=== PATIENT | female | born 1965 | race Caucasian/White ===

== ENCOUNTER 2017-04-05 22:29 | Observation (INO) | payer OTHER ==
--- NOTE | 2017-04-05 22:45 | ED ---
SOB HPI - General Chief Complaint: Shortness of Breath Stated Complaint: HERBER Time Seen by Provider: 04/05/17 22:38 Source: patient, EMS, RN notes reviewed Mode of arrival: EMS Limitations: no limitations - History of Present Illness Initial Comments: This a 51-year-old female presents emergency department via EMS with chief complaint of shortness of breath. Patient states the last few days she's had increased shortness of breath that she feels very achy. She is concerned she may have some sort of lung infection. She states she's had a mild cough which is nonproductive. Patient does have COPD and continues to smoke. Patient states that she has some rib pain when she coughs denies any chest pain. Patient denies any headache, blurred vision, nausea vomiting. Patient states she has had some dizziness. Patient states that she's been using her albuterol inhaler which has not changed much or shortness of breath at this time. Patient denies any prior cardiac problems. - Related Data Home Medications Medication Instructions Recorded Confirmed Omeprazole [PriLOSEC] 20 mg PO [id number] 12/02/14 12/02/14 Previous Rx's Medication Instructions Recorded Albuterol Sulfate [Proair Hfa] 2 puff INHALATION Q4HR PRN #1 12/02/14 inhaler Levofloxacin [Levaquin] 500 mg PO DAILY #10 tab 12/02/14 Oseltamivir [Tamiflu] 75 mg PO Q12HR #10 cap 12/02/14 methylPREDNISolone [Medrol] 1 pack PO DIRECTED #1 tab.ds.pk 12/02/14 Allergies Allergy/AdvReac Type Severity Reaction Status Date / Time No Known Allergies Allergy Verified 12/02/14 15:44 Review of Systems ROS Statement: Those systems with pertinent positive or pertinent negative responses have been documented in the HPI. ROS Other: All systems not noted in ROS Statement are negative. Past Medical History Past Medical History: COPD History of Any Multi-Drug Resistant Organisms: None Reported Past Surgical History: Section, Cholecystectomy Past Psychological History: No Psychological Hx Reported Smoking Status: Current every day smoker Past Alcohol Use History: None Reported Past Drug Use History: None Reported General Exam Limitations: no limitations General appearance: alert, in no apparent distress Head exam: Present: atraumatic, normocephalic, normal inspection Eye exam: Present: normal appearance, PERRL, EOMI. Absent: scleral icterus, conjunctival injection, periorbital swelling ENT exam: Present: mucous membranes moist, TM's normal bilaterally, normal external ear exam. Absent: normal exam, normal oropharynx (no dentition) Neck exam: Present: normal inspection, full ROM. Absent: tenderness, meningismus, lymphadenopathy Respiratory exam: Present: normal lung sounds bilaterally. Absent: respiratory distress, wheezes, rales, rhonchi, stridor Cardiovascular Exam: Present: regular rate, normal rhythm, normal heart sounds. Absent: systolic murmur, diastolic murmur, rubs, gallop, clicks GI/Abdominal exam: Present: soft, normal bowel sounds. Absent: distended, tenderness, guarding, rebound, rigid Neurological exam: Present: alert, oriented X3, CN II-XII intact Course Vital Signs 04/05/17 04/05/17 04/05/17 22:32 22:34 23:34 Temperature 98.7 F Pulse Rate 85 80 Respiratory 18 18 18 Rate Blood Pressure 117/77 O2 Sat by Pulse 100 100 Oximetry Medical Decision Making - Lab Data Result diagrams: 04/05/17 22:42 04/05/17 22:42 Lab Results 04/05/17 04/05/17 04/05/17 Range/Units 22:42 22:42 22:42 WBC 4.9 (3.8-10.6) k/uL RBC 4.30 (3.80-5.40) m/uL Hgb 13.5 (11.4-16.0) gm/dL Hct 40.1 (34.0-46.0) % MCV 93.2 (80.0-100.0) fL MCH 31.3 (25.0-35.0) pg MCHC 33.6 (31.0-37.0) g/dL RDW 12.2 (11.5-15.5) % Plt Count 202 (150-450) k/uL Neutrophils % 59 % Lymphocytes % 32 % Monocytes % 4 % Eosinophils % 3 % Basophils % 1 % Neutrophils # 2.9 (1.3-7.7) k/uL Lymphocytes # 1.6 (1.0-4.8) k/uL Monocytes # 0.2 (0-1.0) k/uL Eosinophils # 0.1 (0-0.7) k/uL Basophils # 0.1 (0-0.2) k/uL PT (9.0-12.0) sec INR (<1.1) APTT (22.0-30.0) sec D-Dimer (<0.60) mg/L FEU Sodium 144 (137-145) mmol/L Potassium 4.1 (3.5-5.1) mmol/L Chloride 106 (98-107) mmol/L Carbon Dioxide 28 (22-30) mmol/L Anion Gap 10 mmol/L BUN 5 L (7-17) mg/dL Creatinine 0.70 (0.52-1.04) mg/dL Est GFR (MDRD) Af Amer >60 (>60 ml/min/1.73 sqM) Est GFR (MDRD) Non-Af >60 (>60 ml/min/1.73 sqM) Glucose 87 (74-99) mg/dL Calcium 9.6 (8.4-10.2) mg/dL Magnesium 1.7 (1.6-2.3) mg/dL Total Bilirubin 0.4 (0.2-1.3) mg/dL AST 18 (14-36) U/L ALT 15 (9-52) U/L Alkaline Phosphatase 80 (38-126) U/L Total Creatine Kinase 35 (30-135) U/L CK-MB (CK-2) 0.3 (0.0-2.4) ng/mL CK-MB (CK-2) Rel Index 0.9 Troponin I <0.012 (0.000-0.034) ng/mL NT-Pro-B Natriuret Pep pg/mL Total Protein 6.9 (6.3-8.2) g/dL Albumin 4.2 (3.5-5.0) g/dL 04/05/17 04/05/17 Range/Units 22:42 22:42 WBC (3.8-10.6) k/uL RBC (3.80-5.40) m/uL Hgb (11.4-16.0) gm/dL Hct (34.0-46.0) % MCV (80.0-100.0) fL MCH (25.0-35.0) pg MCHC (31.0-37.0) g/dL RDW (11.5-15.5) % Plt Count (150-450) k/uL Neutrophils % % Lymphocytes % % Monocytes % % Eosinophils % % Basophils % % Neutrophils # (1.3-7.7) k/uL Lymphocytes # (1.0-4.8) k/uL Monocytes # (0-1.0) k/uL Eosinophils # (0-0.7) k/uL Basophils # (0-0.2) k/uL PT 10.5 (9.0-12.0) sec INR 1.0 (<1.1) APTT 23.0 (22.0-30.0) sec D-Dimer 0.84 H (<0.60) mg/L FEU Sodium (137-145) mmol/L Potassium (3.5-5.1) mmol/L Chloride (98-107) mmol/L Carbon Dioxide (22-30) mmol/L Anion Gap mmol/L BUN (7-17) mg/dL Creatinine (0.52-1.04) mg/dL Est GFR (MDRD) Af Amer (>60 ml/min/1.73 sqM) Est GFR (MDRD) Non-Af (>60 ml/min/1.73 sqM) Glucose (74-99) mg/dL Calcium (8.4-10.2) mg/dL Magnesium (1.6-2.3) mg/dL Total Bilirubin (0.2-1.3) mg/dL AST (14-36) U/L ALT (9-52) U/L Alkaline Phosphatase (38-126) U/L Total Creatine Kinase (30-135) U/L CK-MB (CK-2) (0.0-2.4) ng/mL CK-MB (CK-2) Rel Index Troponin I (0.000-0.034) ng/mL NT-Pro-B Natriuret Pep 72 pg/mL Total Protein (6.3-8.2) g/dL Albumin (3.5-5.0) g/dL 04/05/17 22:45 EKG performed at 22:36 sinus rhythm with sinus arrhythmia incomplete right bundle chester block with a rate of 74. SC interval 124 QRS duration 106 QT/QTC 392/435 Disposition Clinical Impression: Chest pain, Pericardial effusion, Dyspnea Disposition: ADMITTED IP TO THIS HOSP Condition: Fair Referrals: None,Stated [Primary Care Provider] - 1-2 days
[2017-04-05 22:55] LABS: Basophils # (A) 0.1 k/uL (0-0.2); Basophils % (A) 1 %; CH 31.4; CHCM 33.8; Eosinophils # (A) 0.1 k/uL (0-0.7); Eosinophils % (A) 3 %; HCT 40.1 % (34.0-46.0); HDW 2.65; HGB 13.5 gm/dL (11.4-16.0); Luc # (Auto) 0.07; Luc % (Auto) 1; Lymphocytes # (A) 1.6 k/uL (1.0-4.8); Lymphocytes % (A) 32 %; MCH 31.3 pg (25.0-35.0); MCHC 33.6 g/dL (31.0-37.0); MCV 93.2 fL (80.0-100.0); Mean Platelet Volume 7.4; Monocytes # (A) 0.2 k/uL (0-1.0); Monocytes % (A) 4 %; Neutrophils # (A) 2.9 k/uL (1.3-7.7); Neutrophils % (A) 59 %; RDW 12.2 % (11.5-15.5); WBC 4.9 k/uL (3.8-10.6)
[2017-04-05 23:06] LABS: ALT 15 U/L (9-52); AST 18 U/L (14-36); Alkaline Phosphatase 80 U/L (38-126); Anion Gap 10 mmol/L; Blood Urea Nitrogen 5 mg/dL (7-17); Calcium 9.6 mg/dL (8.4-10.2); Carbon Dioxide 28 mmol/L (22-30); Chloride 106 mmol/L (98-107); Glucose 87 mg/dL (74-99); Magnesium 1.7 mg/dL (1.6-2.3); Non-African American GFR(MDRD) >60 (>60 ml/min/1.73 sqM); Potassium 4.1 mmol/L (3.5-5.1); Sodium 144 mmol/L (137-145); Total Bilirubin 0.4 mg/dL (0.2-1.3); Total Protein 6.9 g/dL (6.3-8.2)
[2017-04-05 23:08] LABS: Prothrombin Time 10.5 sec (9.0-12.0)
--- NOTE | 2017-04-05 23:16 | XR ---
EXAM: XR Chest, 2 Views CLINICAL HISTORY: Reason: difficulty breathing TECHNIQUE: Frontal and lateral views of the chest. COMPARISON: 12/02/14 FINDINGS: Cardiac and mediastinal silhouette unremarkable. Again noted are chronic lung findings with pulmonary hyperexpansion/findings compatible with COPD. Areas of scarring and atelectasis suspected. There is blunting of costophrenic angles. May represent scarring though difficult to exclude small pleural effusions. Improved aeration compared to the previous. No definite infiltrate seen on current. IMPRESSION: Chronic lung findings. Blunted costophrenic angles may represent scarring with small pleural effusions not excluded. Improved aeration compared to prior.
[2017-04-05] MEDS ORDERED: RX INFO: IV CONTRAST WAS GIVEN 1 EACH MISC MISCELLANE PRN (23:21)
[2017-04-05 23:27] LABS: Creatine Kinase 35 U/L (30-135)
[2017-04-05 23:40] LABS: Creatine Kinase MB 0.3 ng/mL (0.0-2.4); Troponin I <0.012 ng/mL (0.000-0.034)
--- NOTE | 2017-04-06 00:15 | CT ---
EXAM: CT Angiography Chest With Intravenous Contrast CLINICAL HISTORY: Reason: Pain TECHNIQUE: Axial computed tomographic angiography images of the chest with intravenous contrast using pulmonary embolism protocol. CTDI is 36.4 mGy and DLP is 135.4 mGy-cm. This CT exam was performed using one or more of the following dose reduction techniques: automated exposure control, adjustment of the mA and/or kV according to patient size, and/or use of iterative reconstruction technique. MIP reconstructed images were created and reviewed. Coronal and sagittal reformatted images were created and reviewed. COMPARISON: Chest x-ray same date. No prior chest CTs. FINDINGS: Contrast bolus slightly suboptimal within the pulmonary arteries. Mild artifact limits evaluation of small peripheral branches. No evidence for PE is seen. No aortic dissection. Small pericardial effusion. No cardiomegaly. No pleural effusions. Pulmonary hyperexpansion/findings compatible with COPD with areas of scarring. No superimposed infiltrate. Calcified lung nodules suggesting old granulomatous disease. Cholecystectomy. Degenerative changes and mild spinal curvature. IMPRESSION: Contrast bolus slightly suboptimal within the pulmonary arteries. Mild artifact limits evaluation of small peripheral branches. No evidence for PE is seen. Small pericardial effusion and other findings, as above.
[2017-04-06] MEDS ORDERED: NITROGLYCERIN SL TABS 0.4 MG TAB SUBLINGUAL PRN (00:38)
[2017-04-06] MEDS ORDERED: HEPARIN SODIUM,PORCINE 5,000 UNIT/ML 1 ML VIAL IV ONE (00:38)
[2017-04-06] MEDS ORDERED: ASPIRIN 81 MG CHEW PO STA (00:38)
[2017-04-06] MEDS: HEPARIN SODIUM,PORCINE/D5W PMX 25,000 UNIT in DEXTROSE/WATER 1 500ML.BAG IV SCH (01:03)
[2017-04-06 07:10] LABS: Creatine Kinase 38 U/L (30-135)
[2017-04-06 07:24] LABS: Creatine Kinase MB 0.4 ng/mL (0.0-2.4); Troponin I <0.012 ng/mL (0.000-0.034)
[2017-04-06 12:07] LABS: Creatine Kinase 44 U/L (30-135)
[2017-04-06 12:21] LABS: Creatine Kinase MB 0.6 ng/mL (0.0-2.4); Troponin I <0.012 ng/mL (0.000-0.034)
[2017-04-06] MEDS ORDERED: TEMAZEPAM 15 MG CAP PO PRN (14:38)
[2017-04-06] MEDS ORDERED: ALPRAZolam 0.25 MG TAB PO PRN (14:38)
[2017-04-06] MEDS: NICOTINE 14MG/24HR PATCH TRANSDERM SCH (15:52)
[2017-04-06] MEDS: PANTOPRAZOLE 40 MG TABLET PO SCH (15:52)
[2017-04-06 15:56] LABS: C Reactive Protein <5.0 mg/L (<10.0)
[2017-04-06 17:39] LABS: Appearance,Urine Clear (Clear); Bilirubin,Urine Negative (Negative); Glucose,Urine (UA) Negative (Negative); Ketones,Urine Negative (Negative); Leukocyte Esterase,Urine Negative (Negative); Nitrite,Urine Negative (Negative); Protein,Urine Negative (Negative); Specific Gravity,Urine 1.002 (1.001-1.035); UA Billing (MACRO vs. MICRO) CHEM; Urobilinogen,Urine <2.0 mg/dL (<2.0)
[2017-04-06] MEDS: SYMBICORT 160-4.5 MCG INHALER INHALATION SCH (19:25)
--- NOTE | 2017-04-06 20:52 | HP ---
DATE OF ADMISSION: 04/06/2017 CHIEF COMPLAINT: Complains of chest pain. HISTORY OF PRESENT ILLNESS: This 51-year-old woman with a past medical history of multiple medical problems including COPD , history of cholecystitis, history of nicotine dependence, being followed by no primary care physician, was recently moved back to the area. The patient is complaining of chest pain, which is on the left side and as well as travelling up towards part of her chest with sometimes heaviness, sometimes sharp in character. Patient also complains of mild cough also. The patient has history of heavy smoking. Patient came to [facility] and admitted for further evaluation and treatment. Initial EKG showed incomplete right bundle branch block and as well as PACs. Otherwise, the troponins are negative. Patient admitted for further evaluation and treatment. There is no history of any fever, rigors, chills. No history of headache, loss of consciousness or seizures. The patient also had CT of the chest which showed small pericardial effusion and the findings including granulomatous lesion also noted. The patient apparently also had weight loss from 150 to 96 pounds. The patient choked on deer meet last year subsequently patient had some difficulties in swallowing. The patient did have endoscopy previously. There is no history of fever, rigors, chills. No history of headache, loss of consciousness or seizures. PAST MEDICAL HISTORY: History of COPD , history of cholecystectomy, history of nicotine dependence. Medications prior to admission include albuterol 1 to 2 puffs every 4 p.r.n. ALLERGIES: None. FAMILY HISTORY: No history of heart disease or strokes in the family. SOCIAL HISTORY: History of smoking. No history of alcohol intake. REVIEW OF SYSTEMS: ENT: No diminishing hearing. No diminished vision. CARDIOVASCULAR: As mentioned earlier. RESPIRATORY: As mentioned earlier. GI: No nausea. : No dysuria or retention. CENTRAL NERVOUS SYSTEM: No numbness or weakness. ALLERGY/IMMUNOLOGY: No asthma or hayfever. MUSCULOSKELETAL: As mentioned earlier. HEMATOLOGY/ONCOLOGY: No history of anemia. ENDOCRINE: No history of diabetes mellitus or hypothyroidism. CONSTITUTIONAL: As mentioned earlier. DERMATOLOGY: Negative. RHEUMATOLOGY: Negative. PSYCHIATRY: As mentioned earlier. PHYSICAL EXAMINATION: The patient is alert and oriented times three. Pulse 56, blood pressure 92/56, respiratory rate 18, temperature 98.2, pulse ox 98% on room air. HEENT: Conjunctivae normal. Oral mucosa moist. NECK: No jugular venous distention. No carotid bruit. No lymph node enlargement. CARDIOVASCULAR: S1, S2 muffled. No S3, no S4. RESPIRATORY: Breath sounds diminished at the bases. A few rhonchi, no crackles. ABDOMEN: Soft, nontender. No mass palpable. No hepatosplenomegaly. LEGS: No edema. No swelling. Nervous system: Higher functions as mentioned earlier. Moves all four limbs. No focal motor or sensory deficits. LYMPHATICS: No lymph nodes palpable in the neck, axillae or groin. SKIN: No ulcers, rashes or bleeding. Joints: No active deforming arthropathy. Lab investigation at this time shows CBC within normal limits. D-dimer is 0.84 and BUN is 5. Other labs are normal. ASSESSMENT: 1. Chest pain, possible unstable angina. 2. Possible pleural pericarditis. 3. Mild pericardial effusion on the CAT scan. 4. Elevated d-dimer 0.84 with no evidence of pulmonary embolism. 5. Severe protein calorie malnutrition with body mass index 17.8. 6. Sinus bradycardia. 7. Relative hypotension. 8. History of chronic obstructive pulmonary disease. 9. History of cholecystectomy. 11. History of nicotine dependence. 12. FULL CODE. Recommendations and discussion: This 51-year-old woman who presented with the multiple complex medical issues, we will monitor the patient closely. Continue with the current medications. Continue symptomatic treatment. I recommend to stop the heparin because of pleural effusion on the CT scan. Treat the patient empirically. Cardiology consultation. Prognosis guarded because of multiple complex medical issues. Further recommendations to follow. I would also recommend the patient follow up with primary care physician closely also. Patient understands and agrees. I would also recommend a 2-D echo with Doppler and ESR and CRP also. Full laboratory data workup including TSH also will be ordered. Further recommendations to follow. MTDD
[2017-04-07 06:40] LABS: Basophils % (A) 1 %; CH 31.3; CHCM 33.8; Eosinophils # (A) 0.2 k/uL (0-0.7); Eosinophils % (A) 4 %; HCT 32.9 % (34.0-46.0); HDW 2.58; HGB 10.9 gm/dL (11.4-16.0); Luc # (Auto) 0.08; Luc % (Auto) 2; Lymphocytes # (A) 2.5 k/uL (1.0-4.8); Lymphocytes % (A) 51 %; MCH 30.9 pg (25.0-35.0); MCHC 33.3 g/dL (31.0-37.0); MCV 92.8 fL (80.0-100.0); Mean Platelet Volume 7.4; Monocytes # (A) 0.2 k/uL (0-1.0); Monocytes % (A) 4 %; Neutrophils # (A) 1.9 k/uL (1.3-7.7); Neutrophils % (A) 39 %; RBC 3.54 m/uL (3.80-5.40); RDW 12.2 % (11.5-15.5); WBC 4.8 k/uL (3.8-10.6); WBC (Perox) 4.83
[2017-04-07 07:07] LABS: Anion Gap 7 mmol/L; Blood Urea Nitrogen 4 mg/dL (7-17); Calcium 8.9 mg/dL (8.4-10.2); Carbon Dioxide 27 mmol/L (22-30); Chloride 107 mmol/L (98-107); Cholesterol 134 mg/dL (<200); Glucose 89 mg/dL (74-99); HDL Cholesterol 57 mg/dL (40-60); Non-African American GFR(MDRD) >60 (>60 ml/min/1.73 sqM); Potassium 3.8 mmol/L (3.5-5.1); Sodium 141 mmol/L (137-145); Triglycerides 69 mg/dL (<150)
[2017-04-07] MEDS: SYMBICORT 160-4.5 MCG INHALER INHALATION SCH (07:41)
[2017-04-07 07:57] LABS: Polychromasia Present
[2017-04-07 08:00] VITALS: BP 83/55; PULSE 76; RESP 18; TEMP 98.2
[2017-04-07] MEDS ORDERED: ASPIRIN 325 MG TAB PO SCH (09:00)
--- NOTE | 2017-04-07 10:37 | ECHOF ---
Referral Reason:dariel. effusion MEASUREMENTS -------- HEIGHT: 167.6 cm WEIGHT: 49.9 kg BP: 125/70 RVIDd: 2.3 cm (< 3.3) IVSd: 0.7 cm (0.6 - 1.1) LVIDd: 3.6 cm (3.9 - 5.3) LVPWd: 0.9 cm (0.6 - 1.1) IVSs: 1.1 cm LVIDs: 2.4 cm LVPWs: 1.3 cm LA Diam: 2.4 cm (2.7 - 3.8) LAESV Index (A-L): 12.61 ml/m Ao Diam: 2.3 cm (2.0 - 3.7) AV Cusp: 1.9 cm (1.5 - 2.6) MV EXCURSION: 21.692 mm (> 18.000) MV EF SLOPE: 82 mm/s (70 - 150) EPSS: 0.3 cm MV E Epi: 1.05 m/s MV DecT: 231 ms MV A Epi: 0.59 m/s MV E/A Ratio: 1.77 FINDINGS -------- Sinus rhythm. This was a technically adequate study. The left ventricular size is normal. Left ventricular wall thickness is normal. Overall left ventricular systolic function is low-normal with, an EF between 50 - 55 %. The diastolic filling pattern is normal for the age of the patient 9.19. The right ventricle is normal in size. Normal LA size by volume 22+/-6 ml/m2. The right atrium is normal in size. The aortic valve is trileaflet and appears structurally normal. There is trace mitral regurgitation. The tricuspid valve appears structurally normal. The aortic root, ascending aorta and aortic arch are normal. Normal inferior vena cava with normal inspiratory collapse consistent with estimated right atrial pressure of 5 mmHg. The pericardium is normal. CONCLUSIONS -------- 1. Sinus rhythm. 2. The aortic valve is trileaflet and appears structurally normal. 3. There is trace mitral regurgitation. 4. The tricuspid valve appears structurally normal. 5. The aortic root, ascending aorta and aortic arch are normal. 6. The pericardium is normal. 7. This was a technically adequate study. 8. The left ventricular size is normal. 9. Left ventricular wall thickness is normal. 10. Overall left ventricular systolic function is low-normal with, an EF between 50 - 55 %. 11. The diastolic filling pattern is normal for the age of the patient 9.19 12. The right ventricle is normal in size. 13. Normal LA size by volume 22+/-6 ml/m2. 14. The right atrium is normal in size. DIGITAL DATA ANALYST: Suzan Olivarez RDCS
[2017-04-07] MEDS ORDERED: DOBUTamine DRIP for NUC MED 500 MG in DEXTROSE/WATER 1 250ML.BAG IV ONE (11:11)
--- NOTE | 2017-04-07 11:41 | CONS ---
DATE OF CONSULTATION: Mrs. Curran is a 51-year-old female who presented with recurrent chest discomfort and shoulder discomfort. She was somewhat dizzy and lightheaded and is complaining of pounding and palpitations. She underwent a CT of the chest, we do not show any definite evidence for PE. A 12 lead ECG shows sinus arrhythmia. No ST segment abnormalities. Cardiac enzymes were normal. REVIEW OF SYSTEMS: No fever, chills, rigors. No cough or expectoration. No nausea, vomiting or diarrhea. No hematuria or dysuria. No strokes or seizures. No skin lesions or musculoskeletal complaints. She does have some abdominal discomfort. Past history of smoking regularly, history of COPD. Past surgical history of cholecystectomy. ALLERGIES: None. Family history, noncontributory. SOCIAL HISTORY: She has a history of regular smoking, no alcohol intake. On examination, her blood pressure was 92/56 mmHg upon admission, pulse rate was in the 50s. Head and neck examination is normal. Heart sounds are normal. Lungs are clear to auscultation. Extremities are warm. No edema. She is quite a thin frail lady. She underwent a 2-D echo. She showed a left ventricular ejection fraction of about 50% to 55% with no significant valvular abnormalities. IMPRESSION: 1. Chest discomfort with normal cardiac enzymes. 2. History of nicotine dependence. 3. No evidence for pulmonary embolism. 4. LV systolic function is at the lower limits of normal. SUGGEST: Dobutamine stress echo to rule out any underlying ischemia. If this is normal, then she may go to the medical floor for further work-up regarding her symptoms of shortness of breath, abdominal discomfort and weight loss.
[2017-04-07] MEDS ORDERED: MULTIVITAMINS, THERA 1 EACH TAB PO SCH (12:00)
--- NOTE | 2017-04-07 12:27 | ECHOS ---
DATE OF SERVICE: 04/07/2017 AGE: 51Y SEX: F HT: 66 WT: 110 lbs. Protocol Bharath: Others: Dobutamine Stress Echo Stage: Dur. of Exercise: *Heart Rate Blood Pressure *Rest: ( ) Rest: 86/51 * *Max. Achieved: 150 Maximum BP: 123/67 85% PMHR: 143 100% PMHR: 168 *METS: INDICATIONS: Chest pain. MEDICATIONS: Patient was given dobutamine infusion according to the standard protocol. Peak heart rate of 150 was achieved. Maximum blood pressure of 123/67 mmHg was noted. The patient did not complain of any chest pain during the test. Resting EKG shows normal sinus rhythm with normal ID interval and QRS duration and normal ST-T waves. No ST segment depression suggestive of ischemia is noted. The baseline echocardiographic images reveal normal left ventricular chamber size with normal left ventricular systolic function. At the peak dose of dobutamine infusion, normal increase in the wall thickness and contractility is noted. FINAL IMPRESSION: 1. This dobutamine stress echocardiographic study is negative for stress-induced ischemia. 2. EKG portion of the stress test is not suggestive of ischemia. 3. No dysrhythmias were noted.
[2017-04-07] MEDS: HEPARIN SODIUM,PORCINE/D5W PMX 25,000 UNIT in DEXTROSE/WATER 1 500ML.BAG IV SCH (12:35)
[2017-04-07] MEDS: PANTOPRAZOLE 40 MG TABLET PO SCH (12:49)
[2017-04-07 14:20] VITALS: BMI 17.7
[2017-04-07] MEDS: NICOTINE 14MG/24HR PATCH TRANSDERM SCH (15:38)
--- NOTE | 2017-04-08 08:36 | DS ---
DATE OF ADMISSION: 04/06/2017 DATE OF DISCHARGE: 04/07/2017 FINAL DIAGNOSES: 1. Chest pain, possible musculoskeletal, negative stress echo. 2. Possible pleuritis and pericarditis. 3. Mild pericardial effusion on the CAT scan. 4. Elevated d-dimer 0.84 with no evidence of pulmonary embolism. 5. Severe protein calorie malnutrition with a body mass index of 17.8. 6. Sinus bradycardia. 7. Relative hypotension. 8. History of chronic obstructive pulmonary disease. 9. History of cholecystectomy. 10. History of nicotine dependence. 11. Increased TSH and normal FT4, possible sick euthyroid syndrome. 12. Chronic obstructive pulmonary disease. 13. FULL CODE. DISCHARGE DISPOSITION: Patient will be discharged in a stable condition with a guarded prognosis. Cardiology cleared the patient for discharge. HISTORY OF PRESENT ILLNESS: This is a 51-year-old woman with a past medical history of multiple medical issues was admitted with chest pain and multiple other medical issues. The patient was treated in conjunction with Cardiology, myocardial infarction ruled out, hemoglobin 10.9 which was anemia, normocytic anemia of chronic disease. Patient underwent dobutamine stress echo which showed no evidence of stress-induced ischemia. The patient treated symptomatically, improved significantly. On exam, vitals are stable. CARDIOVASCULAR SYSTEM: S1, S2, muffled. ABDOMEN: Soft. NERVOUS SYSTEM: No focal deficits. Discharged advice: 1. Diet is cardiac. 2. Activity limited until followup. 3. Follow up with Dr. Patino in 2 to 3 days. 4. Follow up with Cardiology as recommended. The medications are: 1. Ventolin HFA 1 to 2 puffs q.6 p.r.n. 2. Xanax 0.25 t.i.d. p.r.n. 3. Symbicort 160/4.5 two puffs b.i.d. 4. Multivitamin 1 p.o. daily. 5. Habitrol 14 daily
== END 2017-04-07 15:55 | disposition home or self-care (01) ==
LOC: EC 22:29 → 3OBS 04-06 00:38
PROVIDERS: ADMIT Internal Medicine; ATTEND Internal Medicine
DX: I31.3 Pericardial effusion (noninflammatory) (principal); J44.9 Chronic obstructive pulmonary disease, unspecified; R00.1 Bradycardia, unspecified; Z68.1 Body mass index [BMI] 19.9 or less, adult; E43 Unspecified severe protein-calorie malnutrition; I95.9 Hypotension, unspecified; F17.200 Nicotine dependence, unspecified, uncomplicated; Z79.899 Other long term (current) drug therapy; Z79.52 Long term (current) use of systemic steroids; Z79.2 Long term (current) use of antibiotics; I45.10 Unspecified right bundle-branch block
CPT/HCPCS: 96376; 96365; 96366; 99285; 36415; 94640 ×2; 93005; 93017; 93306; 85379; 84439; 83880; 80061; 80053; 80048; 85652; 84443; 82550 ×2; 82553 ×2; 83735; 84484 ×2; 85025 ×2; 85610; 85730 ×3; 86140; 81003; 80306; 71020; 71275; G0378 ×2; C8928; S4990; J1250; J1644 ×2; Q9967; Q9957; 93350

== ENCOUNTER 2017-07-25 19:19 | Emergency (ER) | payer OTHER ==
[2017-07-25] MEDS ORDERED: KETOROLAC 30 MG/ML 1 ML VIAL IVP STA (19:46)
[2017-07-25 19:58] LABS: Basophils # (A) 0.1 k/uL (0-0.2); Basophils % (A) 1 %; CH 31.6; CHCM 34.9; Eosinophils # (A) 0.2 k/uL (0-0.7); Eosinophils % (A) 3 %; HCT 41.1 % (34.0-46.0); HDW 2.61; HGB 13.9 gm/dL (11.4-16.0); Luc % (Auto) 2; Lymphocytes # (A) 1.7 k/uL (1.0-4.8); Lymphocytes % (A) 31 %; MCH 30.8 pg (25.0-35.0); MCHC 33.9 g/dL (31.0-37.0); Mean Platelet Volume 7.8; Monocytes # (A) 0.3 k/uL (0-1.0); Monocytes % (A) 5 %; Neutrophils # (A) 3.1 k/uL (1.3-7.7); Neutrophils % (A) 58 %; RBC 4.52 m/uL (3.80-5.40); RDW 12.7 % (11.5-15.5); WBC 5.4 k/uL (3.8-10.6); WBC (Perox) 5.34
[2017-07-25 19:59] VITALS: RESP 18
[2017-07-25 20:09] LABS: ALT 21 U/L (9-52); AST 17 U/L (14-36); Alkaline Phosphatase 103 U/L (38-126); Anion Gap 11 mmol/L; Blood Urea Nitrogen 4 mg/dL (7-17); Calcium 9.8 mg/dL (8.4-10.2); Carbon Dioxide 29 mmol/L (22-30); Chloride 102 mmol/L (98-107); Glucose 103 mg/dL (74-99); Magnesium 1.4 mg/dL (1.6-2.3); Non-African American GFR(MDRD) >60 (>60 ml/min/1.73 sqM); Potassium 4.2 mmol/L (3.5-5.1); Sodium 142 mmol/L (137-145); Total Bilirubin 0.3 mg/dL (0.2-1.3); Total Protein 7.5 g/dL (6.3-8.2)
--- NOTE | 2017-07-25 20:12 | XR ---
EXAMINATION TYPE: XR chest 2V DATE OF EXAM: 07/25/2017 COMPARISON: Prior chest x-ray 04/05/2017 HISTORY: Chest pain and shortness of breath TECHNIQUE: Frontal and lateral views of the chest are obtained. FINDINGS: Patient rotated toward the left. Interstitial changes are again noted. The heart is small. There are prominent lung volumes. Pulmonary vascularity and ana are stable. IMPRESSION: Interstitial lung disease, emphysema.
--- NOTE | 2017-07-25 20:14 | ED ---
Chest Pain HPI - General Chief Complaint: Chest Pain Stated Complaint: Chest Pain Time Seen by Provider: 07/25/17 19:36 Source: patient, RN notes reviewed Mode of arrival: wheelchair Limitations: no limitations - History of Present Illness Initial Comments: This is a 51-year-old female with a history of COPD who is still a smoker who presents with complaints of the onset of chest pain and shortness of breath. She states she's had for past several days. Pain is 7/10 severity sharp pin- like and cocaine she points to both sides of her chest increases with deep breathing and certain movements. She denies any fevers chills nausea vomiting sweats or phlegm production. She states she was recently admitted and had a complete workup. MD Complaint: chest pain, other - Related Data Previous Rx's Medication Instructions Recorded Budesonide-Formot 160-4.5 Mcg 2 puff INHALATION RT-BID #1 puff 04/07/17 [Symbicort 160-4.5 Mcg Inhaler] Ibuprofen [Motrin] 600 mg PO Q6HR PRN #20 tab 07/25/17 Magnesium 200 mg PO DAILY #14 tablet 07/25/17 predniSONE 20 mg PO BID #10 tab 07/25/17 Allergies Allergy/AdvReac Type Severity Reaction Status Date / Time No Known Allergies Allergy Verified 07/25/17 19:43 Review of Systems ROS Statement: Those systems with pertinent positive or pertinent negative responses have been documented in the HPI. ROS Other: All systems not noted in ROS Statement are negative. EKG Findings - EKG Results: EKG: interpreted by ADALI, sinus rhythm (Sinus rhythm rate of 81. Interval 118 QRS duration 90 QT since QTC of 412/478 incomplete right bundle-branch block no acute ST-T wave changes.) Past Medical History Past Medical History: COPD, Eye Disorder Additional Past Medical History / Comment(s): "CHRONIC BACK PAIN", "LEG SWELLING AND LEG CRAMPS AT IMES", DIFFIUCLTY SWALLOWING PILLS, MACULAR DEGENERATION, "HEADACHES", CONSTIPAION -LAST BM 04-05-17, EDENTULOUSE- DIFFICULTY CHEWING FOOD. History of Any Multi-Drug Resistant Organisms: None Reported Past Surgical History: Section, Cholecystectomy Additional Past Surgical History / Comment(s): AGE 16 MISCARRIAGE HAD A d&C,EGD , "TEETH PULLED OUT" Past Anesthesia/Blood Transfusion Reactions: No Reported Reaction Past Psychological History: No Psychological Hx Reported Smoking Status: Current every day smoker Past Alcohol Use History: None Reported Past Drug Use History: None Reported - Past Family History Mother Additional Family Medical History / Comment(s): GALLSTONES, BURSITIS Father Family Medical History: Skin Disorder Additional Family Medical History / Comment(s): CELLULITIS General Exam - General Exam Comments Initial Comments: This a well-developed asthenic appearing female Limitations: no limitations General appearance: alert, anxious Head exam: Present: atraumatic, normocephalic, normal inspection Eye exam: Present: normal appearance, PERRL, EOMI. Absent: scleral icterus, conjunctival injection, periorbital swelling ENT exam: Present: normal exam, mucous membranes moist Neck exam: Present: normal inspection. Absent: tenderness, meningismus, lymphadenopathy Respiratory exam: Present: chest wall tenderness, decreased breath sounds. Absent: respiratory distress, wheezes, rales, rhonchi, stridor Cardiovascular Exam: Present: regular rate, normal rhythm, normal heart sounds. Absent: systolic murmur, diastolic murmur, rubs, gallop, clicks GI/Abdominal exam: Present: soft, normal bowel sounds. Absent: distended, tenderness, guarding, rebound, rigid Extremities exam: Present: normal inspection, full ROM, normal capillary refill. Absent: tenderness, pedal edema, joint swelling, calf tenderness Back exam: Present: normal inspection Neurological exam: Present: alert, oriented X3, CN II-XII intact Psychiatric exam: Present: normal affect, normal mood Skin exam: Present: warm, dry, intact, normal color. Absent: rash Course Vital Signs 07/25/17 07/25/17 07/25/17 19:23 19:57 20:49 Temperature 98.6 F 97.6 F Pulse Rate 71 79 70 Respiratory 20 18 18 Rate Blood Pressure 118/62 99/67 97/52 O2 Sat by Pulse 100 100 100 Oximetry - Reevaluation(s) Reevaluation #1: 07/25/17 20:52 The patient's chest wall pain is improved. I did a long discussion with her regarding the findings Chest Pain MDM - MDM Review the x-ray show no acute findings. I did a long discussion with the patient and her family regarding the findings patient be discharged after medications given. She is encouraged to stop smoking we did discuss smoking cessation for about 3.1 minutes total. Patient will follow-up with her doctor. She does have an inhaler at home. Disposition Clinical Impression: Chest wall syndrome, Costalchondritis, COPD exacerbation, Acute bronchospasm, Hypomagnesemia, Tobacco abuse Disposition: HOME SELF-CARE Condition: Good Instructions: COPD (Chronic Obstructive Pulmonary Disease) (ED), How Your Lungs Work (ED), Hypomagnesemia (ED), How to Stop Smoking (ED) Prescriptions: Ibuprofen [Motrin] 600 mg PO Q6HR PRN #20 tab PRN Reason: Pain Magnesium 200 mg PO DAILY #14 tablet predniSONE 20 mg PO BID #10 tab Referrals: None,Stated [Primary Care Provider] - 1-2 days
[2017-07-25 20:25] LABS: Creatine Kinase 62 U/L (30-135)
[2017-07-25 20:38] LABS: Creatine Kinase MB 0.6 ng/mL (0.0-2.4); Troponin I <0.012 ng/mL (0.000-0.034)
[2017-07-25] MEDS ORDERED: MAGNESIUM SULFATE-D5W PMX 1 GM in DEXTROSE/WATER 1 100ML.BAG IVPB ONE (20:44)
[2017-07-25] MEDS ORDERED: methylPREDNISolone SOD SUCCI 125 MG/2 ML VIAL IV STA (20:44)
[2017-07-25] MEDS ORDERED: IPRATROPIUM-ALBUTEROL 3 ML NEB INHALATION STA (20:52)
[2017-07-25 22:19] VITALS: BP 108/72; PULSE 69; TEMP 98
== END 2017-07-25 22:00 | disposition home or self-care (01) ==
LOC: EC 19:19
DX: E83.42 Hypomagnesemia (principal); J44.1 Chronic obstructive pulmonary disease with (acute) exacerbation; J98.01 Acute bronchospasm; M94.0 Chondrocostal junction syndrome [Tietze]; F17.200 Nicotine dependence, unspecified, uncomplicated
CPT/HCPCS: 99285; 96365; 96375 ×2; 36415; 94640; 93005; 85379; 83880; 80053; 82550; 82553; 83735; 84484; 85025; 85610; 85730; 71020; J2930; J1885; J3475

== ENCOUNTER 2017-08-03 09:33 | Observation (INO) | payer OTHER ==
[2017-08-03] MEDS ORDERED: NITROGLYCERIN SL TABS 0.4 MG TAB SUBLINGUAL STA ×3 (09:51)
[2017-08-03] MEDS ORDERED: ASPIRIN 81 MG PO STA (09:51)
--- NOTE | 2017-08-03 09:53 | ED ---
General Adult HPI - General Chief complaint: Chest Pain Stated complaint: Chest Pain Time Seen by Provider: 08/03/17 09:34 Source: patient, EMS, RN notes reviewed Mode of arrival: EMS Limitations: no limitations - History of Present Illness Initial comments: Patient is a pleasant 51-year-old female presenting to the emergency department complaining of chest discomfort. Onset of symptoms was last night. Patient walked several miles an discomfort started during that. Discomfort is difficult to describe. Discomfort radiates across the chest. Patient does have associated dyspnea and nausea. No diaphoresis. Patient has had similar symptoms several times previously with negative evaluation. No leg pain or leg swelling. No cough or fever. Discomfort is moderate to severe at this time. - Related Data Previous Rx's Medication Instructions Recorded Budesonide-Formot 160-4.5 Mcg 2 puff INHALATION RT-BID #1 puff 04/07/17 [Symbicort 160-4.5 Mcg Inhaler] Ibuprofen [Motrin] 600 mg PO Q6HR PRN #20 tab 07/25/17 Magnesium 200 mg PO DAILY #14 tablet 07/25/17 Allergies Allergy/AdvReac Type Severity Reaction Status Date / Time No Known Allergies Allergy Verified 08/03/17 10:28 Review of Systems ROS Statement: Those systems with pertinent positive or pertinent negative responses have been documented in the HPI. ROS Other: All systems not noted in ROS Statement are negative. Constitutional: Denies: fever Eyes: Denies: eye pain ENT: Denies: ear pain Respiratory: Reports: dyspnea. Denies: cough Cardiovascular: Reports: chest pain Endocrine: Denies: fatigue Gastrointestinal: Reports: nausea. Denies: abdominal pain Genitourinary: Denies: urgency Musculoskeletal: Denies: back pain Skin: Denies: rash Neurological: Denies: weakness Past Medical History Past Medical History: COPD, Eye Disorder Additional Past Medical History / Comment(s): "CHRONIC BACK PAIN", "LEG SWELLING AND LEG CRAMPS AT IMES", DIFFIUCLTY SWALLOWING PILLS, MACULAR DEGENERATION, "HEADACHES", CONSTIPAION -LAST BM 04-05-17, EDENTULOUSE- DIFFICULTY CHEWING FOOD. History of Any Multi-Drug Resistant Organisms: None Reported Past Surgical History: Section, Cholecystectomy Additional Past Surgical History / Comment(s): AGE 16 MISCARRIAGE HAD A d&C,EGD , "TEETH PULLED OUT" Past Anesthesia/Blood Transfusion Reactions: No Reported Reaction Past Psychological History: No Psychological Hx Reported Smoking Status: Current every day smoker Past Alcohol Use History: None Reported Past Drug Use History: None Reported - Past Family History Mother Additional Family Medical History / Comment(s): GALLSTONES, BURSITIS Father Family Medical History: Skin Disorder Additional Family Medical History / Comment(s): CELLULITIS General Exam Limitations: no limitations General appearance: alert, in no apparent distress Head exam: Present: atraumatic Eye exam: Present: normal appearance, PERRL ENT exam: Present: normal oropharynx Neck exam: Present: normal inspection Respiratory exam: Present: normal lung sounds bilaterally. Absent: chest wall tenderness Cardiovascular Exam: Present: regular rate, normal rhythm Expanded Peripheral pulses: 2+: Radial (R), Radial (L), Dorsalis Pedis (R), Dorsalis Pedis (L) GI/Abdominal exam: Present: soft. Absent: tenderness Extremities exam: Present: normal inspection. Absent: pedal edema, calf tenderness Neurological exam: Present: alert Psychiatric exam: Present: normal affect, normal mood Skin exam: Present: normal color Course Vital Signs 08/03/17 08/03/17 08/03/17 09:34 10:09 10:19 Temperature 97.9 F Pulse Rate 74 62 70 Respiratory 18 Rate Blood Pressure 108/55 94/55 102/61 O2 Sat by Pulse 100 100 100 Oximetry 08/03/17 10:39 Temperature Pulse Rate 62 Respiratory Rate Blood Pressure 90/51 O2 Sat by Pulse 100 Oximetry EKG Findings - EKG Comments: EKG Findings:: Normal sinus rhythm 64. [place] 118. QRS 110. QT 420. QTc 433. Normal axis. Incomplete right bundle-branch block. No acute ST change. Medical Decision Making - Medical Decision Making Patient reevaluated and resting comfortably in bed. Patient updated on results and plan. Case discussed in detail with Dr. Grace, who will admit for hospital call. - Lab Data Result diagrams: 08/03/17 10:02 08/03/17 10:02 Lab Results 08/03/17 08/03/17 08/03/17 Range/Units 10:02 10:02 10:02 WBC 4.6 (3.8-10.6) k/uL RBC 4.11 (3.80-5.40) m/uL Hgb 12.8 (11.4-16.0) gm/dL Hct 37.2 (34.0-46.0) % MCV 90.5 (80.0-100.0) fL MCH 31.2 (25.0-35.0) pg MCHC 34.5 (31.0-37.0) g/dL RDW 12.6 (11.5-15.5) % Plt Count 201 (150-450) k/uL Neutrophils % 58 % Lymphocytes % 31 % Monocytes % 6 % Eosinophils % 3 % Basophils % 1 % Neutrophils # 2.7 (1.3-7.7) k/uL Lymphocytes # 1.4 (1.0-4.8) k/uL Monocytes # 0.3 (0-1.0) k/uL Eosinophils # 0.1 (0-0.7) k/uL Basophils # 0.0 (0-0.2) k/uL PT (9.0-12.0) sec INR (<1.2) APTT (22.0-30.0) sec D-Dimer (<0.60) mg/L FEU Sodium 140 (137-145) mmol/L Potassium 4.5 (3.5-5.1) mmol/L Chloride 105 (98-107) mmol/L Carbon Dioxide 25 (22-30) mmol/L Anion Gap 10 mmol/L BUN 8 (7-17) mg/dL Creatinine 0.75 (0.52-1.04) mg/dL Est GFR (MDRD) Af Amer >60 (>60 ml/min/1.73 sqM) Est GFR (MDRD) Non-Af >60 (>60 ml/min/1.73 sqM) Glucose 94 (74-99) mg/dL Calcium 9.4 (8.4-10.2) mg/dL Magnesium 1.8 (1.6-2.3) mg/dL Total Bilirubin 0.6 (0.2-1.3) mg/dL AST 21 (14-36) U/L ALT 13 (9-52) U/L Alkaline Phosphatase 70 (38-126) U/L Total Creatine Kinase 58 (30-135) U/L CK-MB (CK-2) 0.5 (0.0-2.4) ng/mL CK-MB (CK-2) Rel Index 0.9 Troponin I <0.012 (0.000-0.034) ng/mL NT-Pro-B Natriuret Pep pg/mL Total Protein 6.6 (6.3-8.2) g/dL Albumin 3.9 (3.5-5.0) g/dL 08/03/17 08/03/17 Range/Units 10:02 10:02 WBC (3.8-10.6) k/uL RBC (3.80-5.40) m/uL Hgb (11.4-16.0) gm/dL Hct (34.0-46.0) % MCV (80.0-100.0) fL MCH (25.0-35.0) pg MCHC (31.0-37.0) g/dL RDW (11.5-15.5) % Plt Count (150-450) k/uL Neutrophils % % Lymphocytes % % Monocytes % % Eosinophils % % Basophils % % Neutrophils # (1.3-7.7) k/uL Lymphocytes # (1.0-4.8) k/uL Monocytes # (0-1.0) k/uL Eosinophils # (0-0.7) k/uL Basophils # (0-0.2) k/uL PT 10.4 (9.0-12.0) sec INR 1.0 (<1.2) APTT 24.4 (22.0-30.0) sec D-Dimer 0.40 (<0.60) mg/L FEU Sodium (137-145) mmol/L Potassium (3.5-5.1) mmol/L Chloride (98-107) mmol/L Carbon Dioxide (22-30) mmol/L Anion Gap mmol/L BUN (7-17) mg/dL Creatinine (0.52-1.04) mg/dL Est GFR (MDRD) Af Amer (>60 ml/min/1.73 sqM) Est GFR (MDRD) Non-Af (>60 ml/min/1.73 sqM) Glucose (74-99) mg/dL Calcium (8.4-10.2) mg/dL Magnesium (1.6-2.3) mg/dL Total Bilirubin (0.2-1.3) mg/dL AST (14-36) U/L ALT (9-52) U/L Alkaline Phosphatase (38-126) U/L Total Creatine Kinase (30-135) U/L CK-MB (CK-2) (0.0-2.4) ng/mL CK-MB (CK-2) Rel Index Troponin I (0.000-0.034) ng/mL NT-Pro-B Natriuret Pep 95 pg/mL Total Protein (6.3-8.2) g/dL Albumin (3.5-5.0) g/dL - Radiology Data Radiology results: image reviewed (Chest x-ray shows COPD and apical scarring, no acute process) Disposition Clinical Impression: Chest pain Disposition: ADMITTED IP TO THIS [facility] Referrals: None,Stated [Primary Care Provider] - 1-2 days Decision Time: 11:34
[2017-08-03 10:16] LABS: Basophils % (A) 1 %; CH 31.6; CHCM 35.1; Eosinophils # (A) 0.1 k/uL (0-0.7); Eosinophils % (A) 3 %; HCT 37.2 % (34.0-46.0); HDW 2.58; HGB 12.8 gm/dL (11.4-16.0); Luc # (Auto) 0.07; Luc % (Auto) 2; Lymphocytes # (A) 1.4 k/uL (1.0-4.8); Lymphocytes % (A) 31 %; MCH 31.2 pg (25.0-35.0); MCHC 34.5 g/dL (31.0-37.0); MCV 90.5 fL (80.0-100.0); Mean Platelet Volume 8.9; Monocytes # (A) 0.3 k/uL (0-1.0); Monocytes % (A) 6 %; Neutrophils # (A) 2.7 k/uL (1.3-7.7); Neutrophils % (A) 58 %; RBC 4.11 m/uL (3.80-5.40); RDW 12.6 % (11.5-15.5); WBC 4.6 k/uL (3.8-10.6); WBC (Perox) 5.21
[2017-08-03 10:26] LABS: Partial Thromboplastin Time 24.4 sec (22.0-30.0); Prothrombin Time 10.4 sec (9.0-12.0)
[2017-08-03 10:29] LABS: ALT 13 U/L (9-52); AST 21 U/L (14-36); Alkaline Phosphatase 70 U/L (38-126); Anion Gap 10 mmol/L; Blood Urea Nitrogen 8 mg/dL (7-17); Calcium 9.4 mg/dL (8.4-10.2); Carbon Dioxide 25 mmol/L (22-30); Chloride 105 mmol/L (98-107); Glucose 94 mg/dL (74-99); Magnesium 1.8 mg/dL (1.6-2.3); Non-African American GFR(MDRD) >60 (>60 ml/min/1.73 sqM); Sodium 140 mmol/L (137-145); Total Bilirubin 0.6 mg/dL (0.2-1.3); Total Protein 6.6 g/dL (6.3-8.2)
--- NOTE | 2017-08-03 10:35 | XR ---
EXAMINATION TYPE: XR chest 2V DATE OF EXAM: 08/03/2017 COMPARISON: 07/25/2017 HISTORY: 51-year-old female with chest pain and shortness of breath TECHNIQUE: PA and lateral views FINDINGS: Heart is normal size. Aorta and pulmonary vasculature within normal limits. Biapical pleural parenchy mal scarring and hyperinflation with interstitial prominence. No consolidation or pleural effusion. IMPRESSION: COPD with biapical pleural-parenchymal scarring. No acute process identified.
[2017-08-03] MEDS ORDERED: NITROGLYCERIN OINT 1 INCH/GM PACKET TOPICAL STA (10:38)
[2017-08-03 10:47] LABS: Potassium 4.5 mmol/L (3.5-5.1)
[2017-08-03 10:53] LABS: Creatine Kinase 58 U/L (30-135)
[2017-08-03 11:06] LABS: Creatine Kinase MB 0.5 ng/mL (0.0-2.4); Troponin I <0.012 ng/mL (0.000-0.034)
[2017-08-03] MEDS ORDERED: NITROGLYCERIN SL TABS 0.4 MG TAB SUBLINGUAL PRN (11:35)
[2017-08-03] MEDS ORDERED: IPRATROPIUM-ALBUTEROL 3 ML NEB INHALATION PRN (14:03)
--- NOTE | 2017-08-03 14:27 | P.CRDCN ---
History of Present Illness Consult date: 08/03/17 History of present illness: This is a 51 year old female with past medical history of COPD. She presents to the hospital with complaints of pleuritic chest pain and shortness of breath. She states she walked 9 miles yesterday because she didn't have a ride. She complains of generalized body aches and pains. Specifically the pain in here chest is circumferential, worse with deep inspiration, worse with movement and reproducible. She denies nausea, vomting, dizziness or palpitations. She doesn' t follow regularly with a PCP at this time. Of note that the pt has had increased and rapid weight loss recently. Last admission weight was 50.8kg and today was 38.55 kg. Most recent echocardiogram performed 04/07/2017 indicates preserved LV function with EF 50-55%. She also underwent a dobutamine stress test that was negative for ischemia. D-dimer normal, troponin negative x1, CXR indicates COPD. Review of Systems Extensive review of systems performed, negative except mentioned in HPI. Past Medical History Past Medical History: COPD, Eye Disorder Additional Past Medical History / Comment(s): "CHRONIC BACK PAIN", "LEG SWELLING AND LEG CRAMPS AT IMES", DIFFIUCLTY SWALLOWING PILLS, MACULAR DEGENERATION, "HEADACHES", CONSTIPAION -LAST BM 04-05-17, EDENTULOUSE- DIFFICULTY CHEWING FOOD. History of Any Multi-Drug Resistant Organisms: None Reported Past Surgical History: Section, Cholecystectomy Additional Past Surgical History / Comment(s): AGE 16 MISCARRIAGE HAD A d&C,EGD , "TEETH PULLED OUT" Past Anesthesia/Blood Transfusion Reactions: No Reported Reaction Past Psychological History: No Psychological Hx Reported Smoking Status: Current every day smoker Past Alcohol Use History: None Reported Past Drug Use History: None Reported - Past Family History Mother Additional Family Medical History / Comment(s): GALLSTONES, BURSITIS Father Family Medical History: Skin Disorder Additional Family Medical History / Comment(s): CELLULITIS Medications and Allergies Home Medications Medication Instructions Recorded Confirmed Type Budesonide-Formot 160-4.5 Mcg 2 puff INHALATION RT-BID #1 puff 04/07/17 Rx [Symbicort 160-4.5 Mcg Inhaler] Ibuprofen [Motrin] 600 mg PO Q6HR PRN #20 tab 07/25/17 08/03/17 Rx Magnesium 200 mg PO DAILY #14 tablet 07/25/17 08/03/17 Rx Allergies Allergy/AdvReac Type Severity Reaction Status Date / Time No Known Allergies Allergy Verified 08/03/17 10:28 Physical Exam Vitals: Vital Signs Temp Pulse Resp BP Pulse Ox 08/03/17 11:59 97.5 F L 61 16 100/59 99 08/03/17 10:39 62 90/51 100 08/03/17 10:19 70 102/61 100 08/03/17 10:09 62 94/55 100 08/03/17 09:34 97.9 F 74 18 108/55 100 Intake and Output 08/02/17 08/03/17 08/03/17 22:59 06:59 14:59 Other: Weight 38.555 kg Patient Weight 08/04/17 06:59 Weight 38.555 kg GENERAL: This is a 51-year-old female in no apparent distress at the time of my examination. HEENT: Head is atraumatic, normocephalic. Pupils are equal, round. Sclerae anicteric. Conjunctivae are clear. Mucous membranes of the mouth are moist. Neck is supple. There is no jugular venous distention. No carotid bruit is heard. LUNGS: Clear to auscultation no wheezes, rales or rhonchi. Positive chest wall tenderness is noted on palpation and with deep breathing. HEART: Regular rate and rhythm without murmurs, rubs or gallops. S1 and S2 heard. ABDOMEN: Soft, nontender. Bowel sounds are heard. No organomegaly noted. EXTREMITIES: 2+ peripheral pulses with no evidence of peripheral edema and no calf tenderness noted. NEUROLOGIC: Patient is awake, alert and oriented x3. Results 08/03/17 10:02 08/03/17 10:02 Cardiac Enzymes 08/03/17 08/03/17 Range/Units 10:02 10:02 AST 21 (14-36) U/L CK-MB (CK-2) 0.5 (0.0-2.4) ng/mL Troponin I <0.012 (0.000-0.034) ng/mL Coagulation 08/03/17 Range/Units 10:02 PT 10.4 (9.0-12.0) sec APTT 24.4 (22.0-30.0) sec CBC 08/03/17 Range/Units 10:02 WBC 4.6 (3.8-10.6) k/uL RBC 4.11 (3.80-5.40) m/uL Hgb 12.8 (11.4-16.0) gm/dL Hct 37.2 (34.0-46.0) % Plt Count 201 (150-450) k/uL Comprehensive Metabolic Panel 08/03/17 Range/Units 10:02 Sodium 140 (137-145) mmol/L Potassium 4.5 (3.5-5.1) mmol/L Chloride 105 (98-107) mmol/L Carbon Dioxide 25 (22-30) mmol/L BUN 8 (7-17) mg/dL Creatinine 0.75 (0.52-1.04) mg/dL Glucose 94 (74-99) mg/dL Calcium 9.4 (8.4-10.2) mg/dL AST 21 (14-36) U/L ALT 13 (9-52) U/L Alkaline Phosphatase 70 (38-126) U/L Total Protein 6.6 (6.3-8.2) g/dL Albumin 3.9 (3.5-5.0) g/dL Current Medications Generic Name Dose Route Start Last Admin Trade Name Freq PRN Reason Stop Dose Admin Aspirin 325 mg 08/04/17 09:00 Aspirin PO DAILY JOVANNI Nitroglycerin 0.5 inch 08/03/17 18:00 Nitro-Bid Oint TOPICAL Q6HR JOVANNI Nitroglycerin 0.4 mg 08/03/17 11:35 Nitrostat SUBLINGUAL Q5M PRN Chest Pain Sodium Chloride 10 ml 08/03/17 21:00 Saline Flush IV BID JOVANNI Intake and Output 08/02/17 08/03/17 08/03/17 22:59 06:59 14:59 Other: Weight 38.555 kg Patient Weight 08/04/17 06:59 Weight 38.555 kg 08/03/17 10:02 08/03/17 10:02 EKG Interpretations (text) EKG indicates sinus mechanism with incomplete RBBB that is consistent with previous EKG. Assessment and Plan Plan: ASSESSMENT 1. Pleuritic chest pain 2. Chronic COPD 3. Weight loss 4. Chronic tobacco abuse PLAN Obtain serial troponins for a total of 3 to rule out acute coronary event. This does not appear to be a cardiac origin for her pain. There is no further cardiac workup at this time aside from serial troponins. There should be further investigation as to why she is losing weight without trying so quickly as of late. Smoking cessation was discussed. Thank you kindly for this consultation. Nurse Practitioner note has been reviewed, I agree with a documented findings and plan of care. Patient was seen and examined.
[2017-08-03 16:36] LABS: Creatine Kinase 50 U/L (30-135)
[2017-08-03 16:49] LABS: Creatine Kinase MB 0.4 ng/mL (0.0-2.4); Troponin I <0.012 ng/mL (0.000-0.034)
[2017-08-03] MEDS ORDERED: NITROGLYCERIN OINT 1 INCH/GM PACKET TOPICAL SCH (18:00)
[2017-08-03] MEDS: SYMBICORT 160-4.5 MCG INHALER INHALATION SCH (20:04)
[2017-08-03] MEDS: HEPARIN SODIUM,PORCINE 5,000 UNIT/ML 1 ML VIAL SQ SCH (20:23)
--- NOTE | 2017-08-03 21:43 | P.HPIM ---
History of Present Illness H&P Date: 08/03/17 Chief Complaint: Chest pain Patient is a 51-year-old female with a known history of COPD and active and nicotine addiction came to the hospital with complaints of chest pain since last night. Chest pain is mainly midsternal worsens with deep breathing and movement. No radiation no associated diaphoresis. No lightheadedness or dizziness. Apparently patient Walker for 6 hours as she was not taken up by her boyfriend. Since then she has generalized weakness and aches and chest tenderness. Patient had stress echo done in March 2017 was negative. Patient currently denied any nausea vomiting or abdominal pain. Patient continues to smoke 1-2 packs per day. Patient also says that she has significant weight loss since last admission. And also says that she has poor appetite. No history of cancer in the past. Denied any worsening cough. No hematemesis or melena. No history of liver disease. Chest x-ray showed COPD and apical pleural parenchymal scaring. EKG normal sinus rhythm Troponin 1 negative Patient otherwise denied any recent illnesses or sick contacts at home. Review of Systems CONSTITUTIONAL: No fever, generalized weakness, no fatigue. HEENT: No recent visual problems or hearing problems. Denied any sore throat. CARDIOVASCULAR: Positive chest pain, no orthopnea, PND, no palpitations, no syncope. PULMONARY: , No cough or sputum production no hemoptysis. GASTROINTESTINAL: No diarrhea, no nausea, no vomiting, no abdominal pain. Normoactive bowel sounds. NEUROLOGICAL: No headaches, no weakness, no numbness. HEMATOLOGICAL: Denies any bleeding or petechiae. GENITOURINARY: Denies any burning micturition, frequency, or urgency. MUSCULOSKELETAL/RHEUMATOLOGICAL: Denies any joint pain, swelling, or any muscle pain. ENDOCRINE: Denies any polyuria or polydipsia. The rest of the 14-point review of systems is negative. Past Medical History Past Medical History: COPD, Eye Disorder Additional Past Medical History / Comment(s): "CHRONIC BACK PAIN", "LEG SWELLING AND LEG CRAMPS AT TIMES", DIFFIUCLTY SWALLOWING PILLS AND CERTAIN FOODS , BILATERAL MACULAR DEGENERATION, "HEADACHES", CONSTIPAION AND SOMETIMES DIARRHEA ALONG WITH ABDOMINAL CRAMPS. History of Any Multi-Drug Resistant Organisms: None Reported Past Surgical History: Section, Cholecystectomy Additional Past Surgical History / Comment(s): d&c, egd Past Anesthesia/Blood Transfusion Reactions: No Reported Reaction Past Psychological History: No Psychological Hx Reported Additional Psychological History / Comment(s): LIVES IN [facility], ALONE, NO PETS. NO MEDICAL EQUIPMENT. PT DOES NOT DRIVE, SHE GETS TO HER APPTS BY HER EX OR USES INSURANCE COMPANY. Smoking Status: Current every day smoker Past Alcohol Use History: None Reported Additional Past Alcohol Use History / Comment(s): STARTED SMOKING AT AGE 16, SMOKES 1-2 PPD. Past Drug Use History: None Reported - Past Family History Mother Additional Family Medical History / Comment(s): GALLSTONES, BURSITIS. MOTHER OF LUNG CANCER AT THE AGE OF 73YRS. SHE WAS A SMOKER. Father Family Medical History: Skin Disorder Additional Family Medical History / Comment(s): FATHER HAS GOUT. HE IS 76YRS OLD. Medications and Allergies Home Medications Medication Instructions Recorded Confirmed Type Budesonide-Formot 160-4.5 Mcg 2 puff INHALATION RT-BID #1 puff 04/07/17 Rx [Symbicort 160-4.5 Mcg Inhaler] Ibuprofen [Motrin] 600 mg PO Q6HR PRN #20 tab 07/25/17 08/03/17 Rx Magnesium 200 mg PO DAILY #14 tablet 07/25/17 08/03/17 Rx Allergies Allergy/AdvReac Type Severity Reaction Status Date / Time No Known Allergies Allergy Verified 08/03/17 10:28 Physical Exam Vitals: Vital Signs Temp Pulse Pulse Resp BP BP Pulse Ox 08/03/17 12:22 97.5 F L 52 L 18 86/53 99 08/03/17 11:59 97.5 F L 61 16 100/59 99 08/03/17 10:39 62 90/51 100 08/03/17 10:19 70 102/61 100 08/03/17 10:09 62 94/55 100 08/03/17 09:34 97.9 F 74 18 108/55 100 Intake and Output 08/02/17 08/03/17 08/03/17 22:59 06:59 14:59 Other: Weight 98.8 kg Patient Weight 08/04/17 06:59 Weight 98.8 kg PHYSICAL EXAMINATION: Patient is lying in the bed comfortably, no acute distress, awake alert and oriented.. Patient is mildly malnourished. HEENT: Normocephalic. Neck is supple. Pupils reactive. Nostrils clear. Oral cavity is moist. Ears reveal no drainage. Neck reveals no JVD, carotid bruits, or thyromegaly. CHEST EXAMINATION: Trachea is central. Symmetrical expansion. Chest wall tenderness positive Bilateral slow air entry and prolonged expiratory phase. No wheezing. No rhonchi. CARDIAC: Normal S1, S2 with no gallops. No murmurs ABDOMEN: Soft. Bowel sounds normal. No organomegaly. No abdominal bruits. Extremities reveal no edema. No clubbing or cyanosis Neurologically awake, alert, oriented x3 with well-coordinated movements. Skin: no rash or skin lesions Musculoskeletal: no joint swelling or deformity. Results CBC & Chem 7: 08/03/17 10:02 08/03/17 10:02 Thrombosis Risk Factor Assmnt - DVT/VTE Prophylaxis DVT/VTE Prophylaxis: Pharmacologic Prophylaxis ordered Assessment and Plan Plan: #1 chest pain. Most likely musculoskeletal #2 COPD not in exacerbation #3 active nicotine addiction #4 recent weight loss and poor appetite #5 mother of lung cancer #6 DVT prophylaxis Plan: Patient will be continued on pain management. Continue with serial EKGs and troponin. Patient had CBC BMP and liver enzymes are within normal limits. Will check TSH level. Patient denied any hematemesis or melena. No worsening cough. No signs of malignancy has been noted. Chest x-ray showed no pulmonary nodules. Patient had CT chest done in March 2017. Patient was recommended to follow-up with primary care physician for further workup including repeat CT scans. Patient was counseled extensively for smoking cessation and healthy diet. Cardiology is following this patient. We will continue the current management and further recommendations based on the clinical course.
[2017-08-03 22:47] LABS: Creatine Kinase 50 U/L (30-135)
[2017-08-03 22:59] LABS: Creatine Kinase MB 0.4 ng/mL (0.0-2.4); Troponin I <0.012 ng/mL (0.000-0.034)
[2017-08-04 07:41] VITALS: RESP 16
[2017-08-04] MEDS: HEPARIN SODIUM,PORCINE 5,000 UNIT/ML 1 ML VIAL SQ SCH (08:04)
[2017-08-04] MEDS: SYMBICORT 160-4.5 MCG INHALER INHALATION SCH (08:55)
[2017-08-04] MEDS ORDERED: ASPIRIN 325 MG TAB PO SCH (09:00)
--- NOTE | 2017-08-04 09:53 | P.CRDCN ---
History of Present Illness History of present illness: Patient seen and examined yesterday. I'm writing the note today on August 04. Patient admitted with chest discomfort all across the lower chest after walking 9 miles. Cardiac enzymes are normal EKG was normal she's already had a stress test recently in the month of March which was normal. Her pain is very atypical and noncardiac. She has had progressive weight loss and last time when I evaluated her and recommended workup for weight loss and abdominal discomfort. From a cardiac standpoint I would recommend smoking cessation and management of abnormal TSH, elevated. She needs a workup for weight loss from a medical standpoint and will sign off. Please call us for any cardiac issues Past Medical History Past Medical History: COPD, Eye Disorder Additional Past Medical History / Comment(s): "CHRONIC BACK PAIN", "LEG SWELLING AND LEG CRAMPS AT TIMES", DIFFIUCLTY SWALLOWING PILLS AND CERTAIN FOODS , BILATERAL MACULAR DEGENERATION, "HEADACHES", CONSTIPAION AND SOMETIMES DIARRHEA ALONG WITH ABDOMINAL CRAMPS. History of Any Multi-Drug Resistant Organisms: None Reported Past Surgical History: Section, Cholecystectomy Additional Past Surgical History / Comment(s): d&c, egd Past Anesthesia/Blood Transfusion Reactions: No Reported Reaction Past Psychological History: No Psychological Hx Reported Additional Psychological History / Comment(s): LIVES IN [facility], ALONE, NO PETS. NO MEDICAL EQUIPMENT. PT DOES NOT DRIVE, SHE GETS TO HER APPTS BY HER EX OR USES INSURANCE COMPANY. Smoking Status: Current every day smoker Past Alcohol Use History: None Reported Additional Past Alcohol Use History / Comment(s): STARTED SMOKING AT AGE 16, SMOKES 1-2 PPD. Past Drug Use History: None Reported - Past Family History Mother Additional Family Medical History / Comment(s): GALLSTONES, BURSITIS. MOTHER OF LUNG CANCER AT THE AGE OF 73YRS. SHE WAS A SMOKER. Father Family Medical History: Skin Disorder Additional Family Medical History / Comment(s): FATHER HAS GOUT. HE IS 76YRS OLD. Medications and Allergies Home Medications Medication Instructions Recorded Confirmed Type Budesonide-Formot 160-4.5 Mcg 2 puff INHALATION RT-BID #1 puff 04/07/17 Rx [Symbicort 160-4.5 Mcg Inhaler] Ibuprofen [Motrin] 600 mg PO Q6HR PRN #20 tab 07/25/17 08/03/17 Rx Magnesium 200 mg PO DAILY #14 tablet 07/25/17 08/03/17 Rx Allergies Allergy/AdvReac Type Severity Reaction Status Date / Time No Known Allergies Allergy Verified 08/03/17 10:28 Physical Exam Vitals: Vital Signs Temp Pulse Pulse Resp BP BP Pulse Ox 08/04/17 07:51 81/47 08/04/17 07:40 97.6 F 61 16 78/53 98 08/04/17 04:00 49 L 18 08/04/17 03:58 98.2 F 50 L 18 85/45 99 08/04/17 00:00 98.3 F 55 L 18 84/51 98 08/03/17 23:29 46 L 18 08/03/17 20:00 49 L 18 08/03/17 19:34 98.4 F 50 L 18 82/46 100 08/03/17 16:00 98.3 F 63 18 87/49 98 08/03/17 12:22 97.5 F L 52 L 18 86/53 99 08/03/17 11:59 97.5 F L 61 16 100/59 99 08/03/17 10:39 62 90/51 100 08/03/17 10:19 70 102/61 100 08/03/17 10:09 62 94/55 100 Intake and Output 08/03/17 08/04/17 08/04/17 22:59 06:59 14:59 Intake Total 240 450 Balance 240 450 Intake: Oral 240 450 Other: Voiding Method Toilet Toilet Toilet Weight 44.4 kg Results 08/03/17 10:02 08/03/17 10:02 Cardiac Enzymes 08/03/17 08/03/17 08/03/17 Range/Units 10:02 10:02 15:49 AST 21 (14-36) U/L CK-MB (CK-2) 0.5 0.4 (0.0-2.4) ng/mL Troponin I <0.012 <0.012 (0.000-0.034) ng/mL 08/03/17 Range/Units 22:04 AST (14-36) U/L CK-MB (CK-2) 0.4 (0.0-2.4) ng/mL Troponin I <0.012 (0.000-0.034) ng/mL Coagulation 08/03/17 Range/Units 10:02 PT 10.4 (9.0-12.0) sec APTT 24.4 (22.0-30.0) sec Lipids 08/03/17 Range/Units 10:02 Triglycerides 52 (<150) mg/dL Cholesterol 141 (<200) mg/dL HDL Cholesterol 62 H (40-60) mg/dL CBC 08/03/17 Range/Units 10:02 WBC 4.6 (3.8-10.6) k/uL RBC 4.11 (3.80-5.40) m/uL Hgb 12.8 (11.4-16.0) gm/dL Hct 37.2 (34.0-46.0) % Plt Count 201 (150-450) k/uL Comprehensive Metabolic Panel 08/03/17 Range/Units 10:02 Sodium 140 (137-145) mmol/L Potassium 4.5 (3.5-5.1) mmol/L Chloride 105 (98-107) mmol/L Carbon Dioxide 25 (22-30) mmol/L BUN 8 (7-17) mg/dL Creatinine 0.75 (0.52-1.04) mg/dL Glucose 94 (74-99) mg/dL Calcium 9.4 (8.4-10.2) mg/dL AST 21 (14-36) U/L ALT 13 (9-52) U/L Alkaline Phosphatase 70 (38-126) U/L Total Protein 6.6 (6.3-8.2) g/dL Albumin 3.9 (3.5-5.0) g/dL Current Medications Generic Name Dose Route Start Last Admin Trade Name Freq PRN Reason Stop Dose Admin Albuterol/Ipratropium 3 ml 08/03/17 14:03 Duoneb 0.5 Mg-3 Mg/3 Ml Soln INHALATION RT-QID PRN Shortness Of Breath Or Wheezing Aspirin 325 mg 08/04/17 09:00 08/04/17 08:04 Aspirin PO 325 mg DAILY JOVANNI Administration Budesonide/Formoterol Fumarate 2 puff 08/03/17 20:00 08/04/17 08:55 Symbicort 160-4.5 Mcg Inhaler INHALATION 2 puff RT-BID JOVANNI Administration Heparin Sodium (Porcine) 5,000 unit 08/03/17 21:00 08/04/17 08:04 Heparin SQ 5,000 unit Q12HR JOVANNI Administration Nitroglycerin 0.4 mg 08/03/17 11:35 Nitrostat SUBLINGUAL Q5M PRN Chest Pain Sodium Chloride 10 ml 08/03/17 21:00 08/04/17 08:04 Saline Flush IV 10 ml BID JOVANNI Administration Intake and Output 08/03/17 08/04/17 08/04/17 22:59 06:59 14:59 Intake Total 240 450 Balance 240 450 Intake: Oral 240 450 Other: Voiding Method Toilet Toilet Toilet Weight 44.4 kg 08/03/17 10:02 08/03/17 10:02
[2017-08-04 11:03] VITALS: BMI 16.2
[2017-08-04 12:26] VITALS: BP 145/94; PULSE 53; TEMP 98.3
--- NOTE | 2017-08-04 21:56 | P.DS ---
Providers Date of admission: 08/03/17 11:35 Expected date of discharge: 08/04/17 Attending physician: Kade Grace Consults: 08/03/17 11:35 Consult Physician Urgent Consulting Provider: Kaykay Carter Consult Reason/Comments: cp Do you want consulting provider notified?: Yes Primary care physician: Stated None Hospital Course: Discharge diagnosis #1 chest pain. Most likely musculoskeletal #2 COPD not in exacerbation #3 active nicotine addiction #4 recent weight loss and poor appetite #5 mother of lung cancer #6 DVT prophylaxis " Hospital course. Patient is a 51-year-old female with a known history of COPD and active and nicotine addiction came to the hospital with complaints of chest pain since last night. Chest pain is mainly midsternal worsens with deep breathing and movement. No radiation no associated diaphoresis. No lightheadedness or dizziness. Apparently patient Walker for 6 hours as she was not taken up by her boyfriend. Since then she has generalized weakness and aches and chest tenderness. Patient had stress echo done in March 2017 was negative. Patient currently denied any nausea vomiting or abdominal pain. Patient continues to smoke 1-2 packs per day. Patient also says that she has significant weight loss since last admission. And also says that she has poor appetite. No history of cancer in the past. Denied any worsening cough. No hematemesis or melena. No history of liver disease. Chest x-ray showed COPD and apical pleural parenchymal scaring. EKG normal sinus rhythm Troponin 1 negative Patient otherwise denied any recent illnesses or sick contacts at home. 08/04/2017 Patient's chest pain is much improved now. Having pain especially when she breathes deep. Otherwise her TSH is slightly elevated 8.7 but free T4 level is 1.12. Patient was started on low-dose levothyroxine 25 g daily. Plan: Patient was continued on pain management. Continued with serial EKGs and troponin. Troponin 3 negative Patient had CBC BMP and liver enzymes are within normal limits. TSH level 8.7. Patient denied any hematemesis or melena. No worsening cough. No signs of malignancy has been noted. Chest x- ray showed no pulmonary nodules. Patient had CT chest done in March 2017. Patient was recommended to follow-up with primary care physician for further workup including repeat CT scans. Patient was counseled extensively for smoking cessation and healthy diet. Cardiology has seen the patient. Patient is stable to be discharged home. Patient Condition at Discharge: Stable Plan - Discharge Summary New Discharge Prescriptions: New Albuterol Inhaler [Ventolin Hfa Inhaler] 1 - 2 puff INHALATION Q6HR PRN #1 inhaler PRN Reason: Shortness Of Breath Levothyroxine Sodium [Levo-T] 25 mcg PO AC-BRKFST #30 tablet Continue Budesonide-Formot 160-4.5 Mcg [Symbicort 160-4.5 Mcg Inhaler] 2 puff INHALATION RT-BID #1 puff Ibuprofen [Motrin] 600 mg PO Q6HR PRN #20 tab PRN Reason: Pain Magnesium 200 mg PO DAILY #14 tablet Discharge Medication List Budesonide-Formot 160-4.5 Mcg [Symbicort 160-4.5 Mcg Inhaler] 2 puff INHALATION RT-BID #1 puff 04/07/17 [Rx] Ibuprofen [Motrin] 600 mg PO Q6HR PRN #20 tab 07/25/17 [Rx] Magnesium 200 mg PO DAILY #14 tablet 07/25/17 [Rx] Albuterol Inhaler [Ventolin Hfa Inhaler] 1 - 2 puff INHALATION Q6HR PRN #1 inhaler 08/04/17 [Rx] Levothyroxine Sodium [Levo-T] 25 mcg PO AC-BRKFST #30 tablet 08/04/17 [Rx] Follow up Appointment(s)/Referral(s): None,Stated [Primary Care Provider] - 1-2 days Patient Instructions/Handouts: Chest Pain (DC) Discharge Disposition: HOME SELF-CARE
== END 2017-08-04 13:40 | disposition home or self-care (01) ==
LOC: EC 09:33 → 3OBS 11:35
PROVIDERS: ADMIT Internal Medicine; ATTEND Internal Medicine
DX: R07.81 Pleurodynia (principal); R07.89 Other chest pain; J44.9 Chronic obstructive pulmonary disease, unspecified; R63.4 Abnormal weight loss; R63.0 Anorexia; R94.6 Abnormal results of thyroid function studies; F17.200 Nicotine dependence, unspecified, uncomplicated; Z80.1 Family history of malignant neoplasm of trachea, bronchus and lung; R11.0 Nausea; G89.29 Other chronic pain; M54.9 Dorsalgia, unspecified; Z79.51 Long term (current) use of inhaled steroids; Z79.899 Other long term (current) drug therapy
CPT/HCPCS: 99285; 96372 ×2; 36415; 94640; 93005; 85379; 84439; 83880; 80061; 80053; 84443; 82550; 82553; 83735; 84484; 85025; 85610; 85730; 71020; G0378 ×2; J1644 ×2

== ENCOUNTER 2017-12-16 22:56 | Emergency (ER) | payer OTHER ==
[2017-12-16] MEDS ORDERED: ALBUTEROL NEBULIZED 2.5 MG/3 ML INHALATION STA (23:13)
[2017-12-16] MEDS ORDERED: KETOROLAC 30 MG/ML 1 ML VIAL IVP STA (23:13)
[2017-12-16] MEDS ORDERED: SODIUM CHLORIDE 0.9% 1,000 ML IV STA ×2 (23:13)
[2017-12-16] MEDS ORDERED: IPRATROPIUM 0.5 MG/2.5 ML NEBU INHALATION STA (23:13)
[2017-12-16 23:21] VITALS: RESP 18
--- NOTE | 2017-12-16 23:26 | ED ---
General Adult HPI - General Chief complaint: Chest Pain Stated complaint: chest pain Time Seen by Provider: 12/16/17 23:13 Source: patient, RN notes reviewed, old records reviewed Mode of arrival: ambulatory Limitations: no limitations - History of Present Illness Initial comments: This is a 52-year-old female to the ER for evaluation. Patient presents today for evaluation of cough congestion chest pain. Recent diagnosis of COPD. She has had full cardiac evaluation regards to chest pain in the recent past. Patient has 2 hospitalizations in the last year for similar complaint, patient does continue to smoke. No travel history no sick contacts. Patient denies any fevers. Symptoms for 2 days progressively worsening. Pain today with coughing his anterior chest - Related Data Previous Rx's Medication Instructions Recorded Albuterol Sulfate [Proair Hfa] 1 - 2 puff INHALATION Q4H PRN #1 12/17/17 inhaler Azithromycin [Zithromax Z-pack] 0 mg PO DIRECTED #1 pack 12/17/17 Naproxen [Naprosyn] 500 mg PO Q12HR PRN #30 tab 12/17/17 predniSONE 50 mg PO DAILY #5 tab 12/17/17 Allergies Allergy/AdvReac Type Severity Reaction Status Date / Time No Known Allergies Allergy Verified 12/16/17 23:20 Review of Systems ROS Statement: Those systems with pertinent positive or pertinent negative responses have been documented in the HPI. ROS Other: All systems not noted in ROS Statement are negative. Past Medical History Past Medical History: COPD, Eye Disorder Additional Past Medical History / Comment(s): "CHRONIC BACK PAIN", "LEG SWELLING AND LEG CRAMPS AT TIMES", DIFFIUCLTY SWALLOWING PILLS AND CERTAIN FOODS , BILATERAL MACULAR DEGENERATION, "HEADACHES", CONSTIPAION AND SOMETIMES DIARRHEA ALONG WITH ABDOMINAL CRAMPS. History of Any Multi-Drug Resistant Organisms: None Reported Past Surgical History: Section, Cholecystectomy Additional Past Surgical History / Comment(s): d&c, egd Past Anesthesia/Blood Transfusion Reactions: No Reported Reaction Past Psychological History: No Psychological Hx Reported Smoking Status: Current every day smoker Past Alcohol Use History: None Reported Past Drug Use History: None Reported - Past Family History Mother Additional Family Medical History / Comment(s): GALLSTONES, BURSITIS. MOTHER OF LUNG CANCER AT THE AGE OF 73YRS. SHE WAS A SMOKER. Father Family Medical History: Skin Disorder Additional Family Medical History / Comment(s): FATHER HAS GOUT. HE IS 76YRS OLD. General Exam Limitations: no limitations General appearance: alert, in no apparent distress Head exam: Present: atraumatic, normocephalic, normal inspection Eye exam: Present: normal appearance, PERRL, EOMI. Absent: scleral icterus, conjunctival injection, periorbital swelling ENT exam: Present: normal exam, mucous membranes moist Neck exam: Present: normal inspection. Absent: tenderness, meningismus, lymphadenopathy Respiratory exam: Present: normal lung sounds bilaterally, wheezes, decreased breath sounds, prolonged expiratory. Absent: respiratory distress, rales, rhonchi, stridor Cardiovascular Exam: Present: normal rhythm, tachycardia, normal heart sounds. Absent: systolic murmur, diastolic murmur, rubs, gallop, clicks GI/Abdominal exam: Present: soft, normal bowel sounds. Absent: distended, tenderness, guarding, rebound, rigid Extremities exam: Present: normal inspection, full ROM, normal capillary refill. Absent: tenderness, pedal edema, joint swelling, calf tenderness Back exam: Present: normal inspection Neurological exam: Present: alert, oriented X3, CN II-XII intact Psychiatric exam: Present: normal affect, normal mood Skin exam: Present: warm, dry, intact, normal color. Absent: rash Course Vital Signs 12/16/17 12/16/17 12/16/17 22:58 23:20 23:30 Temperature 98.2 F Pulse Rate 104 H 92 Pulse Rate [ 77 Warp Coiler ] Respiratory 20 18 Rate Blood Pressure 110/70 112/74 O2 Sat by Pulse 100 100 Oximetry 12/16/17 12/17/17 12/17/17 23:31 00:11 00:16 Temperature Pulse Rate 77 76 70 Pulse Rate [ Warp Coiler ] Respiratory 18 Rate Blood Pressure 102/59 O2 Sat by Pulse 97 Oximetry 12/17/17 01:31 Temperature 98.8 F Pulse Rate 70 Pulse Rate [ Warp Coiler ] Respiratory 18 Rate Blood Pressure 98/60 O2 Sat by Pulse 97 Oximetry - Reevaluation(s) Reevaluation #1: 12/17/17 00:18 Patient feeling significant improvement after breathing treatment, discussed with patient at length need to quit smoking EKG Findings - EKG Comments: EKG Findings:: EKG shows rate of 75, NE 180, QRS 96, QTc 437 Medical Decision Making - Medical Decision Making 32 female the ER for evaluation of any COPD exacerbation likely pleurisy. Troponin negative EKG and negative patient can be discharged home - Lab Data Result diagrams: 12/16/17 23:10 12/16/17 23:10 Lab Results 12/16/17 12/16/17 12/16/17 Range/Units 23:10 23:10 23:10 WBC 6.2 (3.8-10.6) k/uL RBC 4.37 (3.80-5.40) m/uL Hgb 13.2 (11.4-16.0) gm/dL Hct 39.7 (34.0-46.0) % MCV 91.0 (80.0-100.0) fL MCH 30.3 (25.0-35.0) pg MCHC 33.3 (31.0-37.0) g/dL RDW 11.7 (11.5-15.5) % Plt Count 280 (150-450) k/uL Neutrophils % 58 % Lymphocytes % 32 % Monocytes % 5 % Eosinophils % 3 % Basophils % 1 % Neutrophils # 3.6 (1.3-7.7) k/uL Lymphocytes # 2.0 (1.0-4.8) k/uL Monocytes # 0.3 (0-1.0) k/uL Eosinophils # 0.2 (0-0.7) k/uL Basophils # 0.0 (0-0.2) k/uL PT (9.0-12.0) sec INR (<1.2) APTT (22.0-30.0) sec D-Dimer (<0.60) mg/L FEU Sodium 139 (137-145) mmol/L Potassium 3.7 (3.5-5.1) mmol/L Chloride 102 (98-107) mmol/L Carbon Dioxide 29 (22-30) mmol/L Anion Gap 8 mmol/L BUN 2 L (7-17) mg/dL Creatinine 0.76 (0.52-1.04) mg/dL Est GFR (MDRD) Af Amer >60 (>60 ml/min/1.73 sqM) Est GFR (MDRD) Non-Af >60 (>60 ml/min/1.73 sqM) Glucose 91 (74-99) mg/dL Calcium 9.7 (8.4-10.2) mg/dL Magnesium 1.5 L (1.6-2.3) mg/dL Total Bilirubin 0.2 (0.2-1.3) mg/dL AST 16 (14-36) U/L ALT 18 (9-52) U/L Alkaline Phosphatase 100 (38-126) U/L Total Creatine Kinase 51 (30-135) U/L CK-MB (CK-2) 0.3 (0.0-2.4) ng/mL CK-MB (CK-2) Rel Index 0.6 Troponin I <0.012 (0.000-0.034) ng/mL NT-Pro-B Natriuret Pep pg/mL Total Protein 6.8 (6.3-8.2) g/dL Albumin 4.2 (3.5-5.0) g/dL 12/16/17 12/16/17 Range/Units 23:10 23:10 WBC (3.8-10.6) k/uL RBC (3.80-5.40) m/uL Hgb (11.4-16.0) gm/dL Hct (34.0-46.0) % MCV (80.0-100.0) fL MCH (25.0-35.0) pg MCHC (31.0-37.0) g/dL RDW (11.5-15.5) % Plt Count (150-450) k/uL Neutrophils % % Lymphocytes % % Monocytes % % Eosinophils % % Basophils % % Neutrophils # (1.3-7.7) k/uL Lymphocytes # (1.0-4.8) k/uL Monocytes # (0-1.0) k/uL Eosinophils # (0-0.7) k/uL Basophils # (0-0.2) k/uL PT 10.0 (9.0-12.0) sec INR 1.0 (<1.2) APTT 23.8 (22.0-30.0) sec D-Dimer 0.68 H (<0.60) mg/L FEU Sodium (137-145) mmol/L Potassium (3.5-5.1) mmol/L Chloride (98-107) mmol/L Carbon Dioxide (22-30) mmol/L Anion Gap mmol/L BUN (7-17) mg/dL Creatinine (0.52-1.04) mg/dL Est GFR (MDRD) Af Amer (>60 ml/min/1.73 sqM) Est GFR (MDRD) Non-Af (>60 ml/min/1.73 sqM) Glucose (74-99) mg/dL Calcium (8.4-10.2) mg/dL Magnesium (1.6-2.3) mg/dL Total Bilirubin (0.2-1.3) mg/dL AST (14-36) U/L ALT (9-52) U/L Alkaline Phosphatase (38-126) U/L Total Creatine Kinase (30-135) U/L CK-MB (CK-2) (0.0-2.4) ng/mL CK-MB (CK-2) Rel Index Troponin I (0.000-0.034) ng/mL NT-Pro-B Natriuret Pep 58 pg/mL Total Protein (6.3-8.2) g/dL Albumin (3.5-5.0) g/dL - Radiology Data Radiology results: report reviewed (CTA chest negative for PE), image reviewed Disposition Clinical Impression: Psychogenic hyperventilation, Acute exacerbation of chronic obstructive pulmonary disease (COPD) Disposition: HOME SELF-CARE Condition: Good Instructions: Acute Bronchitis (ED) Prescriptions: Albuterol Sulfate [Proair Hfa] 1 - 2 puff INHALATION Q4H PRN #1 inhaler PRN Reason: Shortness Of Breath Azithromycin [Zithromax Z-pack] 0 mg PO DIRECTED #1 pack Naproxen [Naprosyn] 500 mg PO Q12HR PRN #30 tab PRN Reason: Pain predniSONE 50 mg PO DAILY #5 tab Referrals: None,Stated [Primary Care Provider] - 1-2 days
[2017-12-16 23:31] LABS: Basophils % (A) 1 %; Eosinophils # (A) 0.2 k/uL (0-0.7); Eosinophils % (A) 3 %; HCT 39.7 % (34.0-46.0); HGB 13.2 gm/dL (11.4-16.0); Lymphocytes % (A) 32 %; MCH 30.3 pg (25.0-35.0); MCHC 33.3 g/dL (31.0-37.0); Mean Platelet Volume 7.3; Monocytes # (A) 0.3 k/uL (0-1.0); Monocytes % (A) 5 %; Neutrophils # (A) 3.6 k/uL (1.3-7.7); Neutrophils % (A) 58 %; Platelet Count 280 k/uL (150-450); RBC 4.37 m/uL (3.80-5.40); RDW 11.7 % (11.5-15.5); WBC 6.2 k/uL (3.8-10.6)
[2017-12-16 23:40] LABS: ALT 18 U/L (9-52); AST 16 U/L (14-36); Albumin 4.2 g/dL (3.5-5.0); Alkaline Phosphatase 100 U/L (38-126); Anion Gap 8 mmol/L; Blood Urea Nitrogen 2 mg/dL (7-17); Calcium 9.7 mg/dL (8.4-10.2); Carbon Dioxide 29 mmol/L (22-30); Chloride 102 mmol/L (98-107); Glucose 91 mg/dL (74-99); Magnesium 1.5 mg/dL (1.6-2.3); Potassium 3.7 mmol/L (3.5-5.1); Sodium 139 mmol/L (137-145); Total Bilirubin 0.2 mg/dL (0.2-1.3); Total Protein 6.8 g/dL (6.3-8.2)
[2017-12-16 23:45] LABS: D-Dimer 0.68 mg/L FEU (<0.60); Partial Thromboplastin Time 23.8 sec (22.0-30.0)
[2017-12-16 23:49] LABS: Creatine Kinase 51 U/L (30-135)
[2017-12-16] MEDS ORDERED: MAGNESIUM OXIDE 400 MG TAB PO STA (23:53)
[2017-12-16] MEDS ORDERED: RX INFO: IV CONTRAST WAS GIVEN 1 EACH MISC MISCELLANE PRN (23:53)
[2017-12-17 00:02] LABS: Creatine Kinase MB 0.3 ng/mL (0.0-2.4); Troponin I <0.012 ng/mL (0.000-0.034)
[2017-12-17] MEDS: MAGNESIUM SULFATE-D5W PMX 1 GM in DEXTROSE/WATER 1 100ML.BAG IVPB SCH ×2 (00:14→01:08)
[2017-12-17 00:19] VITALS: PULSE 70
--- NOTE | 2017-12-17 01:03 | CT ---
EXAMINATION TYPE: CT angio chest DATE OF EXAM: 12/17/2017 12:32 AM COMPARISON: 04/05/2017 HISTORY: Prior on synapse, chest pain, SOB, R/O PE CT DLP: 117.60 mGycm Automated exposure control for dose reduction was used. CONTRAST: CTA scan of the thorax is performed with IV Contrast, patient injected with 75 mL of Omnipaque 350, p ulmonary embolism protocol. There are 3-D post processed images.. FINDINGS: There is pulmonary hyperinflation with flattening of the diaphragm. There is reticular nodular infilt rate and pleural thickening at the lung apices. There are emphysematous changes at the lung apices. H eart size is normal. There is no pericardial effusion. There is no pleural effusion. Thoracic spine i s intact. There is no filling defects in the pulmonary arteries. There is no evidence of aortic aneurysm or dis section. IMPRESSION: THERE IS EMPHYSEMA. PLEURAL AND PULMONARY FIBROTIC CHANGES. NO EVIDENCE OF PULMONARY EMBOLISM.
[2017-12-17 01:31] VITALS: BP 98/60; TEMP 98.8
== END 2017-12-17 01:31 | disposition home or self-care (01) ==
LOC: EC 22:56
DX: J44.1 Chronic obstructive pulmonary disease with (acute) exacerbation (principal); F45.8 Other somatoform disorders; F17.200 Nicotine dependence, unspecified, uncomplicated
CPT/HCPCS: 36415; 94640; 93005; 85379; 83880; 80053; 82550; 82553; 83735; 84484; 85025; 85610; 85730; 71275; 99285; 96365; 96375; 96361; Q9967; J1885; J3475

== ENCOUNTER 2018-01-11 02:18 | Emergency (ER) | payer OTHER ==
[2018-01-11 02:24] VITALS: RESP 18
[2018-01-11] MEDS ORDERED: KETOROLAC 30 MG/ML 1 ML VIAL IVP STA (02:32)
--- NOTE | 2018-01-11 02:37 | ED ---
Abdominal Pain HPI - General Chief Complaint: Abdominal Pain Stated Complaint: abdominal pain Time Seen by Provider: 01/11/18 02:26 Source: family, RN notes reviewed Mode of arrival: ambulatory Limitations: no limitations - History of Present Illness Initial Comments: This is a 52-year-old female who presents to the emergency department with chief complaint of abdominal pain. Patient states that the pain came on gradually tonight and is cramping in nature. She states that pain is not localized in that it is generalized to the entire abdomen. Patient states that she has been having difficulties with constipation. She states that she has been straining while trying to have a bowel movement. Patient denies any nausea or vomiting, diarrhea, fevers or chills. She denies any chest pain or shortness of breath. Patient states that her only abdominal surgery has been a laparoscopic cholecystectomy. - Related Data Previous Rx's Medication Instructions Recorded Albuterol Sulfate [Proair Hfa] 1 - 2 puff INHALATION Q4H PRN #1 12/17/17 inhaler Bisacodyl [Dulcolax] 5 mg PO DAILY #10 tablet. 01/11/18 Dicyclomine [Bentyl] 10 mg PO TID #15 capsule 01/11/18 Allergies Allergy/AdvReac Type Severity Reaction Status Date / Time No Known Allergies Allergy Verified 12/16/17 23:20 Review of Systems ROS Statement: Those systems with pertinent positive or pertinent negative responses have been documented in the HPI. ROS Other: All systems not noted in ROS Statement are negative. Past Medical History Past Medical History: COPD, Eye Disorder Additional Past Medical History / Comment(s): "CHRONIC BACK PAIN", "LEG SWELLING AND LEG CRAMPS AT TIMES", DIFFIUCLTY SWALLOWING PILLS AND CERTAIN FOODS , BILATERAL MACULAR DEGENERATION, "HEADACHES", CONSTIPAION AND SOMETIMES DIARRHEA ALONG WITH ABDOMINAL CRAMPS. History of Any Multi-Drug Resistant Organisms: None Reported Past Surgical History: Section, Cholecystectomy Additional Past Surgical History / Comment(s): d&c, egd Past Anesthesia/Blood Transfusion Reactions: No Reported Reaction Past Psychological History: No Psychological Hx Reported Smoking Status: Current every day smoker Past Alcohol Use History: None Reported Past Drug Use History: None Reported - Past Family History Mother Additional Family Medical History / Comment(s): GALLSTONES, BURSITIS. MOTHER OF LUNG CANCER AT THE AGE OF 73YRS. SHE WAS A SMOKER. Father Family Medical History: Skin Disorder Additional Family Medical History / Comment(s): FATHER HAS GOUT. HE IS 76YRS OLD. General Exam - General Exam Comments Initial Comments: General: Awake and alert, well-developed; in no apparent distress. HEENT: Head atraumatic, normocephalic. Pupils are equal, round and reactive to light. Extraocular movements intact. Oropharynx moist without erythema or exudate. Neck: Supple. Normal ROM. Cardiovascular: Regular rate and rhythm. No murmurs, rubs or gallops. Chest symmetrical. Respiratory: Lungs clear to auscultation bilaterally. No wheezes, rales or rhonchi. Normal respiratory effort with no use of accessory muscles. Abdomen: Soft, non-tender, non-distended. No rigidity, rebound or guarding. Normal bowel sounds in all 4 quadrants. Musculoskeletal: Normal ROM, no tenderness bilateral upper and lower extremities. Ambulating normally. Skin: [place], warm and dry without rashes or lesions. Neurological: Alert and oriented x3. CN II-XII grossly intact. Speech is fluent and answers are appropriate. No focal neuro deficits. Psychiatric: Normal mood and affect. No overt signs of depression or anxiety noted. Limitations: no limitations Course Vital Signs 01/11/18 02:20 Temperature 97.7 F Pulse Rate 88 Respiratory 18 Rate Blood Pressure 147/91 O2 Sat by Pulse 99 Oximetry Medical Decision Making - Medical Decision Making this is a 52-year-old female presents to the emergency department with chief complaint of abdominal pain. Patient denies any nausea, vomiting and diarrhea. Abdominal pain is generalized and cramping in nature. Abdomen is soft and non -tender on palpation. Vital signs are stable and patient is afebrile. CBC, CMP and UA are within normal limits. KUB revealed a nonacute abdomen with no sign of constipation. Patient's vital signs are stable and she is in no acute distress. She will be discharged home with a prescription for stool softeners and Bentyl. Return parameters were discussed. Patient is in agreement voices understanding. All questions were answered. - Lab Data Result diagrams: 01/11/18 02:58 01/11/18 02:58 Lab Results 01/11/18 01/11/18 01/11/18 Range/Units 02:58 02:58 02:58 WBC 5.5 (3.8-10.6) k/uL RBC 4.76 (3.80-5.40) m/uL Hgb 14.5 (11.4-16.0) gm/dL Hct 43.8 (34.0-46.0) % MCV 92.1 (80.0-100.0) fL MCH 30.4 (25.0-35.0) pg MCHC 33.0 (31.0-37.0) g/dL RDW 11.8 (11.5-15.5) % Plt Count 225 (150-450) k/uL Neutrophils % 75 % Lymphocytes % 18 % Monocytes % 4 % Eosinophils % 1 % Basophils % 1 % Neutrophils # 4.1 (1.3-7.7) k/uL Lymphocytes # 1.0 (1.0-4.8) k/uL Monocytes # 0.2 (0-1.0) k/uL Eosinophils # 0.1 (0-0.7) k/uL Basophils # 0.0 (0-0.2) k/uL Sodium 142 (137-145) mmol/L Potassium 4.5 (3.5-5.1) mmol/L Chloride 101 (98-107) mmol/L Carbon Dioxide 29 (22-30) mmol/L Anion Gap 12 mmol/L BUN 6 L (7-17) mg/dL Creatinine 0.80 (0.52-1.04) mg/dL Est GFR (MDRD) Af Amer >60 (>60 ml/min/1.73 sqM) Est GFR (MDRD) Non-Af >60 (>60 ml/min/1.73 sqM) Glucose 91 (74-99) mg/dL Calcium 10.1 (8.4-10.2) mg/dL Total Bilirubin 0.6 (0.2-1.3) mg/dL AST 17 (14-36) U/L ALT <6 L (9-52) U/L Alkaline Phosphatase 104 (38-126) U/L Total Protein 7.7 (6.3-8.2) g/dL Albumin 4.6 (3.5-5.0) g/dL Amylase 94 (30-110) U/L Lipase 142 (23-300) U/L Urine Color Light Yellow Urine Appearance Clear (Clear) Urine pH 5.5 (5.0-8.0) Ur Specific [place] 1.001 (1.001-1.035) Urine Protein Negative (Negative) Urine Glucose (UA) Negative (Negative) Urine Ketones Negative (Negative) Urine Blood Negative (Negative) Urine Nitrite Negative (Negative) Urine Bilirubin Negative (Negative) Urine Urobilinogen <2.0 (<2.0) mg/dL Ur Leukocyte Esterase Moderate H (Negative) Urine WBC 1 (0-5) /hpf Ur Squamous Epith Cells <1 (0-4) /hpf Urine Mucus Rare H (None) /hpf - Radiology Data Radiology results: report reviewed X-ray KUB findings: There is no sign of intestinal obstruction or pneumoperitoneum. Fecal pattern is normal. There are a few phleboliths in the pelvis. There are clips probably from a cholecystectomy. There are no pathologic calcifications over the kidneys. Impression: Nonacute abdomen. No sign of constipation. Disposition Clinical Impression: Abdominal cramping Disposition: HOME SELF-CARE Condition: Good Instructions: Acute Abdominal Pain (ED), Constipation (ED) Additional Instructions: Please take medications as prescribed. Please follow up with primary care provider within 1-2 days. Return to emergency department if symptoms should worsen or any concerns arise. Prescriptions: Bisacodyl [Dulcolax] 5 mg PO DAILY #10 tablet. Dicyclomine [Bentyl] 10 mg PO TID #15 capsule Referrals: None,Stated [Primary Care Provider] - 1-2 days Time of Disposition: 03:49
[2018-01-11 03:13] LABS: Basophils % (A) 1 %; Eosinophils # (A) 0.1 k/uL (0-0.7); Eosinophils % (A) 1 %; HCT 43.8 % (34.0-46.0); HGB 14.5 gm/dL (11.4-16.0); Lymphocytes % (A) 18 %; MCH 30.4 pg (25.0-35.0); MCV 92.1 fL (80.0-100.0); Mean Platelet Volume 7.5; Monocytes # (A) 0.2 k/uL (0-1.0); Monocytes % (A) 4 %; Neutrophils # (A) 4.1 k/uL (1.3-7.7); Neutrophils % (A) 75 %; Platelet Count 225 k/uL (150-450); RBC 4.76 m/uL (3.80-5.40); RDW 11.8 % (11.5-15.5); WBC 5.5 k/uL (3.8-10.6)
[2018-01-11 03:25] LABS: Appearance,Urine Clear (Clear); Bilirubin,Urine Negative (Negative); Blood,Urine Negative (Negative); Color,Urine Light Yellow; Glucose,Urine (UA) Negative (Negative); Ketones,Urine Negative (Negative); Leukocyte Esterase,Urine Moderate (Negative); Mucus,Urine Rare /hpf; Nitrite,Urine Negative (Negative); PH, Urine 5.5 (5.0-8.0); Protein,Urine Negative (Negative); Specific Gravity,Urine 1.001 (1.001-1.035); Squamous Epithelial Cell,Urine <1 /hpf (0-4); Urobilinogen,Urine <2.0 mg/dL (<2.0); WBC,Urine 1 /hpf (0-5)
[2018-01-11 03:29] LABS: ALT <6 U/L (9-52); AST 17 U/L (14-36); Albumin 4.6 g/dL (3.5-5.0); Alkaline Phosphatase 104 U/L (38-126); Amylase 94 U/L (30-110); Anion Gap 12 mmol/L; Blood Urea Nitrogen 6 mg/dL (7-17); Calcium 10.1 mg/dL (8.4-10.2); Carbon Dioxide 29 mmol/L (22-30); Chloride 101 mmol/L (98-107); Glucose 91 mg/dL (74-99); Lipase 142 U/L (23-300); Potassium 4.5 mmol/L (3.5-5.1); Sodium 142 mmol/L (137-145); Total Bilirubin 0.6 mg/dL (0.2-1.3); Total Protein 7.7 g/dL (6.3-8.2)
--- NOTE | 2018-01-11 03:32 | XR ---
EXAMINATION TYPE: XR KUB DATE OF EXAM: 01/11/2018 COMPARISON: NONE HISTORY: Constipation TECHNIQUE: 2 views FINDINGS: There is no sign of intestinal obstruction or pneumoperitoneum. Fecal pattern is normal. Th ere are a few phleboliths in the pelvis. There are clips probably from cholecystectomy. There are no pathologic calcifications over the kidneys. IMPRESSION: Nonacute abdomen. No sign of constipation.
[2018-01-11 04:01] VITALS: BP 97/51; PULSE 51; TEMP 98.2
== END 2018-01-11 04:01 | disposition home or self-care (01) ==
LOC: EC 02:18
DX: R10.84 Generalized abdominal pain (principal); F17.200 Nicotine dependence, unspecified, uncomplicated; Z90.49 Acquired absence of other specified parts of digestive tract
CPT/HCPCS: 36415; 80053; 82150; 83690; 85025; 81001; 74018; 99284; 96374; J1885

== ENCOUNTER 2018-02-17 19:34 | Emergency (ER) | payer OTHER ==
[2018-02-17] MEDS ORDERED: SODIUM CHLORIDE 0.9% 1,000 ML IV ONE (20:01)
--- NOTE | 2018-02-17 20:55 | ED ---
Weakness HPI - General Source: patient Mode of arrival: EMS Limitations: no limitations <Silver Peralta - Last Filed: 02/17/18 20:54> <Aamir Jo - Last Filed: 02/17/18 22:52> - General Chief complaint: Weakness Stated complaint: Weakness Time Seen by Provider: 02/17/18 19:35 - History of Present Illness Initial comments: Is a 52-year-old female presents emergency department for multiple complaints. Her main complaint is that she has a burning sensation throughout her entire body and he has some generalized weakness per she states that the symptoms been going on for the 2-3 weeks. She states that she has an appointment with her primary doctor tomorrow however does not a variety there so she decided come emergency department tonight evaluated. She states that she had a thyroid test performed that was normal. She states that she is worried about cancer because of her symptoms. She states that she does have a decreased appetite. No shortness of breath or cough. No abdominal pain. No fevers or chills. Just has generalized burning sensation throughout her entire body. No focal neurologic complaints. (Silver Peralta) - Related Data Home Medications Medication Instructions Recorded Confirmed Budesonide/Formoterol Fumarate 2 puff INHALATION RT-BID 02/17/18 02/17/18 [Symbicort 160-4.5 Mcg Inhaler] Previous Rx's Medication Instructions Recorded Nitrofurantoin Monohyd/M-Cryst 100 mg PO Q12HR #10 cap 02/17/18 [Macrobid] Allergies Allergy/AdvReac Type Severity Reaction Status Date / Time No Known Allergies Allergy Verified 02/17/18 20:03 Review of Systems ROS Other: All systems not noted in ROS Statement are negative. <Silver Peralta - Last Filed: 02/17/18 20:54> ROS Other: All systems not noted in ROS Statement are negative. <Aamir Jo - Last Filed: 02/17/18 22:52> ROS Statement: Those systems with pertinent positive or pertinent negative responses have been documented in the HPI. Past Medical History Past Medical History: COPD, Eye Disorder Additional Past Medical History / Comment(s): "CHRONIC BACK PAIN", "LEG SWELLING AND LEG CRAMPS AT TIMES", DIFFIUCLTY SWALLOWING PILLS AND CERTAIN FOODS , BILATERAL MACULAR DEGENERATION, "HEADACHES", CONSTIPAION AND SOMETIMES DIARRHEA ALONG WITH ABDOMINAL CRAMPS. History of Any Multi-Drug Resistant Organisms: None Reported Past Surgical History: Section, Cholecystectomy Additional Past Surgical History / Comment(s): d&c, egd Past Anesthesia/Blood Transfusion Reactions: No Reported Reaction Past Psychological History: No Psychological Hx Reported Smoking Status: Current every day smoker Past Alcohol Use History: None Reported Past Drug Use History: None Reported - Past Family History Mother Additional Family Medical History / Comment(s): GALLSTONES, BURSITIS. MOTHER OF LUNG CANCER AT THE AGE OF 73YRS. SHE WAS A SMOKER. Father Family Medical History: Skin Disorder Additional Family Medical History / Comment(s): FATHER HAS GOUT. HE IS 76YRS OLD. <Silver Peralta - Last Filed: 02/17/18 20:54> General Exam Limitations: no limitations <Silver Peralta - Last Filed: 02/17/18 20:54> General appearance: alert, in no apparent distress Head exam: Present: atraumatic, normocephalic, normal inspection Eye exam: Present: normal appearance, PERRL, EOMI. Absent: scleral icterus, conjunctival injection, periorbital swelling ENT exam: Present: normal exam, mucous membranes moist Neck exam: Present: normal inspection. Absent: tenderness, meningismus, lymphadenopathy Respiratory exam: Present: normal lung sounds bilaterally. Absent: respiratory distress, wheezes, rales, rhonchi, stridor Cardiovascular Exam: Present: regular rate, normal rhythm, normal heart sounds. Absent: systolic murmur, diastolic murmur, rubs, gallop, clicks GI/Abdominal exam: Present: soft, normal bowel sounds. Absent: distended, tenderness, guarding, rebound, rigid Extremities exam: Present: normal inspection, full ROM, normal capillary refill. Absent: tenderness, pedal edema, joint swelling, calf tenderness Back exam: Present: normal inspection Neurological exam: Present: alert, oriented X3, CN II-XII intact Psychiatric exam: Present: normal affect, normal mood Skin exam: Present: warm, dry, intact, normal color. Absent: rash <Aamir Jo - Last Filed: 02/17/18 22:52> - General Exam Comments Initial Comments: Constitutional: Awake alert Appears comfortable Head: Normocephalic atraumatic Eyes: no conjunctival injection No scleral icterus EOMI Neck: No JVD Supple Heart: Regular rate rhythm normal S1-S2 no murmurs Lungs: Clear to auscultation bilaterally No wheezing No rales Abdomen: Soft nondistended nontender Extremities: Non edematous DP pulses intact Radial pulses intact Neuro: A&Ox3 No focal neurologic deficits Psych: Appropriate mood and affect (Silver Peralta) Course <Silver Peralta - Last Filed: 02/17/18 20:54> <Aamir Jo - Last Filed: 02/17/18 22:52> Vital Signs 02/17/18 02/17/18 02/17/18 19:44 21:15 22:39 Temperature 98.0 F Pulse Rate 74 55 L 62 Respiratory 18 14 18 Rate Blood Pressure 110/62 110/62 112/59 O2 Sat by Pulse 97 99 100 Oximetry - Reevaluation(s) Reevaluation #1: 02/17/18 22:51 Patient is asking to go home, patient states that she is relatively symptomatically, labwork is normal possible mild UTI we'll treat appropriately ( Aamir Jo) Medical Decision Making <Silver Peratla - Last Filed: 02/17/18 20:54> - Lab Data Result diagrams: 02/17/18 20:43 02/17/18 20:43 - Radiology Data Radiology results: report reviewed (Chest x-rays negative for acute disease), image reviewed <Amair Jo - Last Filed: 02/17/18 22:52> - Medical Decision Making 52 female the ER for evaluation of weakness, multiple complaints. No significant cause found. Results are negative and patient can be discharged home (Aamir Jo) - Lab Data Lab Results 02/17/18 02/17/18 02/17/18 Range/Units 20:43 20:43 21:33 WBC 5.0 (3.8-10.6) k/uL RBC 4.26 (3.80-5.40) m/uL Hgb 12.8 (11.4-16.0) gm/dL Hct 37.7 (34.0-46.0) % MCV 88.5 (80.0-100.0) fL MCH 30.1 (25.0-35.0) pg MCHC 34.1 (31.0-37.0) g/dL RDW 11.9 (11.5-15.5) % Plt Count 192 (150-450) k/uL Neutrophils % 53 % Lymphocytes % 37 % Monocytes % 4 % Eosinophils % 3 % Basophils % 1 % Neutrophils # 2.7 (1.3-7.7) k/uL Lymphocytes # 1.8 (1.0-4.8) k/uL Monocytes # 0.2 (0-1.0) k/uL Eosinophils # 0.2 (0-0.7) k/uL Basophils # 0.0 (0-0.2) k/uL Sodium 139 (137-145) mmol/L Potassium 4.0 (3.5-5.1) mmol/L Chloride 100 (98-107) mmol/L Carbon Dioxide 28 (22-30) mmol/L Anion Gap 11 mmol/L BUN 5 L (7-17) mg/dL Creatinine 0.68 (0.52-1.04) mg/dL Est GFR (CKD-EPI)AfAm >90 (>60 ml/min/1.73 sqM) Est GFR (CKD-EPI)NonAf >90 (>60 ml/min/1.73 sqM) Glucose 90 (74-99) mg/dL Calcium 9.4 (8.4-10.2) mg/dL Magnesium 1.7 (1.6-2.3) mg/dL Total Bilirubin 0.4 (0.2-1.3) mg/dL AST 16 (14-36) U/L ALT 15 (9-52) U/L Alkaline Phosphatase 98 (38-126) U/L Total Protein 6.8 (6.3-8.2) g/dL Albumin 4.0 (3.5-5.0) g/dL Urine Color Light Yellow Urine Appearance Clear (Clear) Urine pH 7.0 (5.0-8.0) Ur Specific [place] 1.002 (1.001-1.035) Urine Protein Negative (Negative) Urine Glucose (UA) Negative (Negative) Urine Ketones Negative (Negative) Urine Blood Trace H (Negative) Urine Nitrite Negative (Negative) Urine Bilirubin Negative (Negative) Urine Urobilinogen <2.0 (<2.0) mg/dL Ur Leukocyte Esterase Large H (Negative) Urine RBC 1 (0-5) /hpf Urine WBC 21 H (0-5) /hpf Ur Squamous Epith Cells 1 (0-4) /hpf Amorphous Sediment Occasional H (None) /hpf Urine Bacteria Rare H (None) /hpf Hyaline Casts 4 H (0-2) /lpf Urine Mucus Rare H (None) /hpf Disposition <Silver Peralta - Last Filed: 02/17/18 20:54> <Aamir Jo - Last Filed: 02/17/18 22:52> Clinical Impression: Weakness, UTI (urinary tract infection) Disposition: HOME SELF-CARE Condition: Good Instructions: Urinary Tract Infection in Women (ED) Prescriptions: Nitrofurantoin Monohyd/M-Cryst [Macrobid] 100 mg PO Q12HR #10 cap Referrals: None,Stated [Primary Care Provider] - 1-2 days
[2018-02-17 21:06] LABS: Basophils % (A) 1 %; Eosinophils # (A) 0.2 k/uL (0-0.7); Eosinophils % (A) 3 %; HCT 37.7 % (34.0-46.0); HGB 12.8 gm/dL (11.4-16.0); Lymphocytes # (A) 1.8 k/uL (1.0-4.8); Lymphocytes % (A) 37 %; MCH 30.1 pg (25.0-35.0); MCHC 34.1 g/dL (31.0-37.0); MCV 88.5 fL (80.0-100.0); Mean Platelet Volume 7.4; Monocytes # (A) 0.2 k/uL (0-1.0); Monocytes % (A) 4 %; Neutrophils # (A) 2.7 k/uL (1.3-7.7); Neutrophils % (A) 53 %; Platelet Count 192 k/uL (150-450); RBC 4.26 m/uL (3.80-5.40); RDW 11.9 % (11.5-15.5)
[2018-02-17 21:12] LABS: ALT 15 U/L (9-52); AST 16 U/L (14-36); Alkaline Phosphatase 98 U/L (38-126); Anion Gap 11 mmol/L; Blood Urea Nitrogen 5 mg/dL (7-17); Calcium 9.4 mg/dL (8.4-10.2); Carbon Dioxide 28 mmol/L (22-30); Chloride 100 mmol/L (98-107); Glucose 90 mg/dL (74-99); Magnesium 1.7 mg/dL (1.6-2.3); Sodium 139 mmol/L (137-145); Total Bilirubin 0.4 mg/dL (0.2-1.3); Total Protein 6.8 g/dL (6.3-8.2)
--- NOTE | 2018-02-17 21:23 | XR ---
EXAMINATION: XR chest 2V DATE AND TIME: 02/17/2018 9:08 PM ORDERING PROVIDER: Silver Peralta DO CLINICAL INDICATION: Pain TECHNIQUE: PA and lateral COMPARISON: 08/03/2017 DESCRIPTION: There are prominent emphysematous changes redemonstrated, with prominent apical pleural- parenchymal changes redemonstrated, greater on the right. The overlying ribs are intact. The lungs are clear of acute processes. The pleural spaces are negative. The cardiac silhouette is not enlarged. The mediastinal and pleural silhouettes are unremarkable. The skeletal structures are intact without focal findings. The soft tissues are unremarkable. IMPRESSION: NO DEFINITE ACUTE PROCESS.
[2018-02-17 21:43] LABS: Amorphous Sediment,Urine Occasional /hpf; Appearance,Urine Clear (Clear); Bacteria,Urine Rare /hpf; Bilirubin,Urine Negative (Negative); Blood,Urine Trace (Negative); Color,Urine Light Yellow; Glucose,Urine (UA) Negative (Negative); Hyaline Casts,Urine 4 /lpf (0-2); Ketones,Urine Negative (Negative); Leukocyte Esterase,Urine Large (Negative); Mucus,Urine Rare /hpf; Nitrite,Urine Negative (Negative); Protein,Urine Negative (Negative); RBC,Urine 1 /hpf (0-5); Specific Gravity,Urine 1.002 (1.001-1.035); Squamous Epithelial Cell,Urine 1 /hpf (0-4); Urobilinogen,Urine <2.0 mg/dL (<2.0); WBC,Urine 21 /hpf (0-5)
[2018-02-17 22:41] VITALS: BP 112/59; PULSE 62; RESP 18
[2018-02-17] MEDS ORDERED: NITROFURANTOIN MONOHYD/M-CRYST 100 MG CAP PO STA (22:44)
[2018-02-17 23:03] VITALS: TEMP 97.6
== END 2018-02-17 23:11 | disposition home or self-care (01) ==
LOC: EC 19:34
DX: N39.0 Urinary tract infection, site not specified (principal); R53.1 Weakness; J44.9 Chronic obstructive pulmonary disease, unspecified; F17.200 Nicotine dependence, unspecified, uncomplicated; Z79.51 Long term (current) use of inhaled steroids
CPT/HCPCS: 36415; 71046; 80053; 81001; 83735; 85025; 96360; 99285

== ENCOUNTER 2018-02-24 19:25 | Emergency (ER) | payer OTHER ==
[2018-02-24] MEDS ORDERED: SODIUM CHLORIDE 0.9% 1,000 ML IV STA (19:58)
[2018-02-24 20:30] LABS: Appearance,Urine Cloudy (Clear); Bacteria,Urine Rare /hpf; Bilirubin,Urine Negative (Negative); Blood,Urine Small (Negative); Budding Yeast,Urine Rare /hpf; Color,Urine Yellow; Glucose,Urine (UA) Negative (Negative); Hyaline Casts,Urine 4 /lpf (0-2); Ketones,Urine Negative (Negative); Leukocyte Esterase,Urine Large (Negative); Mucus,Urine Rare /hpf; Nitrite,Urine Negative (Negative); Protein,Urine Negative (Negative); RBC,Urine 3 /hpf (0-5); Specific Gravity,Urine 1.006 (1.001-1.035); Squamous Epithelial Cell,Urine 3 /hpf (0-4); Urobilinogen,Urine <2.0 mg/dL (<2.0); WBC,Urine 7 /hpf (0-5)
--- NOTE | 2018-02-24 20:45 | XR ---
EXAMINATION TYPE: XR KUB DATE OF EXAM: 02/24/2018 COMPARISON: 01/11/2018 HISTORY: Abdominal pain TECHNIQUE: 2 views FINDINGS: Bowel gas pattern is normal. There is no sign of intestinal obstruction or pneumoperitoneum . There are no pathologic calcifications over the kidneys. There are clips probably from cholecystect kian. There are numerous sleeveless in the pelvis. IMPRESSION: Nonacute abdomen. No change.
[2018-02-24 21:02] LABS: Basophils % (A) 0 %; Eosinophils # (A) 0.1 k/uL (0-0.7); Eosinophils % (A) 1 %; HCT 43.1 % (34.0-46.0); HGB 14.7 gm/dL (11.4-16.0); Lymphocytes # (A) 0.8 k/uL (1.0-4.8); Lymphocytes % (A) 9 %; MCV 88.2 fL (80.0-100.0); Mean Platelet Volume 7.6; Monocytes # (A) 0.2 k/uL (0-1.0); Monocytes % (A) 2 %; Neutrophils # (A) 7.8 k/uL (1.3-7.7); Neutrophils % (A) 87 %; Platelet Count 235 k/uL (150-450); RBC 4.89 m/uL (3.80-5.40); RDW 11.8 % (11.5-15.5)
[2018-02-24 21:13] LABS: ALT 13 U/L (9-52); AST 17 U/L (14-36); Albumin 4.5 g/dL (3.5-5.0); Alkaline Phosphatase 100 U/L (38-126); Amylase 113 U/L (30-110); Anion Gap 13 mmol/L; Blood Urea Nitrogen 5 mg/dL (7-17); Calcium 9.9 mg/dL (8.4-10.2); Carbon Dioxide 29 mmol/L (22-30); Chloride 97 mmol/L (98-107); Glucose 112 mg/dL (74-99); Lipase 188 U/L (23-300); Potassium 4.7 mmol/L (3.5-5.1); Sodium 139 mmol/L (137-145); Total Bilirubin 0.4 mg/dL (0.2-1.3); Total Protein 7.5 g/dL (6.3-8.2)
--- NOTE | 2018-02-24 21:14 | ED ---
Abdominal Pain HPI - General Chief Complaint: Abdominal Pain Stated Complaint: Constipation Time Seen by Provider: 02/24/18 19:39 Source: patient, EMS, RN notes reviewed Mode of arrival: EMS Limitations: no limitations - History of Present Illness Initial Comments: This is a 52-year-old female who presents to the emergency department with chief complaint of generalized abdominal pain. She describes the abdominal pain as cramping. The pain began today a couple of hours prior to arrival. Patient also admits to chills and feeling sweaty. She states that she has been constipated, stating that she strains to have a small bowel movement. She states that her last normal bowel movement was one week ago. Denies diarrhea, nausea or vomiting. Denies fevers. Denies chest pain or shortness of breath. Patient does report that she does have some dysuria. She is being treated for a urinary tract infection and has 2 pills left. Denies hematuria. - Related Data Previous Rx's Medication Instructions Recorded Nitrofurantoin Monohyd/M-Cryst 100 mg PO Q12HR #10 cap 02/17/18 [Macrobid] Allergies Allergy/AdvReac Type Severity Reaction Status Date / Time No Known Allergies Allergy Verified 02/24/18 19:49 Review of Systems ROS Statement: Those systems with pertinent positive or pertinent negative responses have been documented in the HPI. ROS Other: All systems not noted in ROS Statement are negative. Past Medical History Past Medical History: COPD, Eye Disorder Additional Past Medical History / Comment(s): "CHRONIC BACK PAIN", "LEG SWELLING AND LEG CRAMPS AT TIMES", DIFFIUCLTY SWALLOWING PILLS AND CERTAIN FOODS , BILATERAL MACULAR DEGENERATION, "HEADACHES", CONSTIPAION AND SOMETIMES DIARRHEA ALONG WITH ABDOMINAL CRAMPS. History of Any Multi-Drug Resistant Organisms: None Reported Past Surgical History: Section, Cholecystectomy Additional Past Surgical History / Comment(s): d&c, egd Past Anesthesia/Blood Transfusion Reactions: No Reported Reaction Past Psychological History: No Psychological Hx Reported Smoking Status: Current every day smoker Past Alcohol Use History: None Reported Past Drug Use History: None Reported - Past Family History Mother Additional Family Medical History / Comment(s): GALLSTONES, BURSITIS. MOTHER OF LUNG CANCER AT THE AGE OF 73YRS. SHE WAS A SMOKER. Father Family Medical History: Skin Disorder Additional Family Medical History / Comment(s): FATHER HAS GOUT. HE IS 76YRS OLD. General Exam - General Exam Comments Initial Comments: General: Awake and alert, well-developed; in no apparent distress. HEENT: Head atraumatic, normocephalic. Pupils are equal, round and reactive to light. Extraocular movements intact. Oropharynx moist without erythema or exudate. Neck: Supple. Normal ROM. Cardiovascular: Regular rate and rhythm. No murmurs, rubs or gallops. Chest symmetrical. Respiratory: Lungs clear to auscultation bilaterally. No wheezes, rales or rhonchi. Normal respiratory effort with no use of accessory muscles. Abdomen: Soft, non-tender, non-distended. No rigidity, rebound or guarding. Normal bowel sounds in all 4 quadrants. Musculoskeletal: Normal ROM, no tenderness bilateral upper and lower extremities. Skin: [place], warm and dry without rashes or lesions. Neurological: Alert and oriented x3. CN II-XII grossly intact. Speech is fluent and answers are appropriate. No focal neuro deficits. Psychiatric: Normal mood and affect. No overt signs of depression or anxiety noted. Limitations: no limitations Course Vital Signs 02/24/18 19:33 Temperature 98 F Pulse Rate 78 Respiratory 18 Rate Blood Pressure 120/66 O2 Sat by Pulse 99 Oximetry Medical Decision Making - Medical Decision Making This is a 52-year-old female presents to the emergency department with chief complaint of generalized abdominal pain and constipation. KUB revealed a nonacute abdomen. CBC and CMP were unremarkable. UA did reveal evidence for a urinary tract infection, however patient is currently being treated with Macrobid. Urine sent for a culture and is pending. Patient's vital signs are stable and she is in no acute distress. She will be discharged with magnesium citrate. Recommended drinking half of the bottle this evening and if no bowel movement and see was by tomorrow she is to drink the second half. Patient is in agreement with plan and voices understanding. All questions were answered. - Lab Data Result diagrams: 02/24/18 20:50 02/24/18 20:50 Lab Results 02/24/18 02/24/18 02/24/18 Range/Units 20:10 20:50 20:50 WBC 9.0 (3.8-10.6) k/uL RBC 4.89 (3.80-5.40) m/uL Hgb 14.7 (11.4-16.0) gm/dL Hct 43.1 (34.0-46.0) % MCV 88.2 (80.0-100.0) fL MCH 30.0 (25.0-35.0) pg MCHC 34.0 (31.0-37.0) g/dL RDW 11.8 (11.5-15.5) % Plt Count 235 (150-450) k/uL Neutrophils % 87 % Lymphocytes % 9 % Monocytes % 2 % Eosinophils % 1 % Basophils % 0 % Neutrophils # 7.8 H (1.3-7.7) k/uL Lymphocytes # 0.8 L (1.0-4.8) k/uL Monocytes # 0.2 (0-1.0) k/uL Eosinophils # 0.1 (0-0.7) k/uL Basophils # 0.0 (0-0.2) k/uL Sodium 139 (137-145) mmol/L Potassium 4.7 (3.5-5.1) mmol/L Chloride 97 L (98-107) mmol/L Carbon Dioxide 29 (22-30) mmol/L Anion Gap 13 mmol/L BUN 5 L (7-17) mg/dL Creatinine 0.73 (0.52-1.04) mg/dL Est GFR (CKD-EPI)AfAm >90 (>60 ml/min/1.73 sqM) Est GFR (CKD-EPI)NonAf >90 (>60 ml/min/1.73 sqM) Glucose 112 H (74-99) mg/dL Calcium 9.9 (8.4-10.2) mg/dL Total Bilirubin 0.4 (0.2-1.3) mg/dL AST 17 (14-36) U/L ALT 13 (9-52) U/L Alkaline Phosphatase 100 (38-126) U/L Total Protein 7.5 (6.3-8.2) g/dL Albumin 4.5 (3.5-5.0) g/dL Amylase 113 H (30-110) U/L Lipase 188 (23-300) U/L Urine Color Yellow Urine Appearance Cloudy H (Clear) Urine pH 5.0 (5.0-8.0) Ur Specific [place] 1.006 (1.001-1.035) Urine Protein Negative (Negative) Urine Glucose (UA) Negative (Negative) Urine Ketones Negative (Negative) Urine Blood Small H (Negative) Urine Nitrite Negative (Negative) Urine Bilirubin Negative (Negative) Urine Urobilinogen <2.0 (<2.0) mg/dL Ur Leukocyte Esterase Large H (Negative) Urine RBC 3 (0-5) /hpf Urine WBC 7 H (0-5) /hpf Ur Squamous Epith Cells 3 (0-4) /hpf Urine Bacteria Rare H (None) /hpf Hyaline Casts 4 H (0-2) /lpf Urine Mucus Rare H (None) /hpf Urine Yeast (Bud[place]) Rare H (None) /hpf - Radiology Data Radiology results: report reviewed X-ray KUB impression: Nonacute abdomen. No change. Disposition Clinical Impression: Constipation, UTI (urinary tract infection) Disposition: HOME SELF-CARE Condition: Good Instructions: Constipation (ED), Magnesium Citrate (By mouth) Additional Instructions: Please continue taking medication for urinary tract infection as previously prescribed. Please drink half the bottle of magnesium citrate this evening. If no bowel movement by tomorrow, may drink the second half. Please take medications as prescribed. Please follow up with primary care provider within 1- 2 days. Return to emergency department if symptoms should worsen or any concerns arise. Referrals: None,Stated [Primary Care Provider] - 1-2 days Time of Disposition: 21:56
[2018-02-24] MEDS ORDERED: MAGNESIUM CITRATE 296 ML BOTTLE PO ONE (21:52)
[2018-02-24 22:10] VITALS: BP 125/72; PULSE 77; RESP 20; TEMP 97
== END 2018-02-24 22:12 | disposition home or self-care (01) ==
LOC: EC 19:25
DX: K59.00 Constipation, unspecified (principal); N39.0 Urinary tract infection, site not specified; R10.84 Generalized abdominal pain; F17.200 Nicotine dependence, unspecified, uncomplicated; Z90.49 Acquired absence of other specified parts of digestive tract
CPT/HCPCS: 36415; 74018; 80053; 81001; 82150; 83690; 85025; 87086; 96360; 99284

== ENCOUNTER 2018-11-03 22:36 | Emergency (ER) | payer OTHER ==
[2018-11-03 22:57] VITALS: BP 123/72; PULSE 99; RESP 20; TEMP 98.2
--- NOTE | 2018-11-04 00:01 | ED ---
Abdominal Pain HPI - General Chief Complaint: Abdominal Pain Stated Complaint: Constipated, back pain Time Seen by Provider: 11/04/18 00:01 Source: patient Mode of arrival: ambulatory Limitations: no limitations - History of Present Illness Initial Comments: Kyleigh is a 52-year-old female with a history of chronic constipation reporting that occasionally there episodes where she only has a bowel movement every 1-2 weeks. Patient reports she is discussed WITH her primary care physician was previously prescribed MiraLAX which caused her to have diarrhea so she stopped taking it. Patient also reports she's been evaluated in the emergency department and was prescribed Bentyl however she felt they gave her side effects of feeling groggy so she is not willing to take that. Patient reports that her ex-boyfriend's mother recently saw a wool shearer Dr. Marx so the patient came to the emergency department to request a consult to Dr. Marx. - Related Data Home Medications Medication Instructions Recorded Confirmed No Known Home Medications 11/03/18 11/03/18 Allergies Allergy/AdvReac Type Severity Reaction Status Date / Time No Known Allergies Allergy Verified 02/24/18 19:49 Review of Systems ROS Statement: Those systems with pertinent positive or pertinent negative responses have been documented in the HPI. ROS Other: All systems not noted in ROS Statement are negative. Past Medical History Past Medical History: COPD, Eye Disorder Additional Past Medical History / Comment(s): "CHRONIC BACK PAIN", "LEG SWELLING AND LEG CRAMPS AT TIMES", DIFFIUCLTY SWALLOWING PILLS AND CERTAIN FOODS , BILATERAL MACULAR DEGENERATION, "HEADACHES", CONSTIPAION AND SOMETIMES DIARRHEA ALONG WITH ABDOMINAL CRAMPS. History of Any Multi-Drug Resistant Organisms: None Reported Past Surgical History: Section, Cholecystectomy Additional Past Surgical History / Comment(s): d&c, egd Past Anesthesia/Blood Transfusion Reactions: No Reported Reaction Past Psychological History: No Psychological Hx Reported Smoking Status: Current every day smoker Past Alcohol Use History: None Reported Past Drug Use History: None Reported - Past Family History Mother Additional Family Medical History / Comment(s): GALLSTONES, BURSITIS. MOTHER OF LUNG CANCER AT THE AGE OF 73YRS. SHE WAS A SMOKER. Father Family Medical History: Skin Disorder Additional Family Medical History / Comment(s): FATHER HAS GOUT. HE IS 76YRS OLD. General Exam Limitations: no limitations Course Vital Signs 11/03/18 22:52 Temperature 98.2 F Pulse Rate 99 Respiratory 20 Rate Blood Pressure 123/72 O2 Sat by Pulse 100 Oximetry Medical Decision Making - Medical Decision Making The patient was seen and evaluated, history is obtained from the patient and friend bedside. Patient with a history of chronic constipation, apparently has only tried MiraLAX previously and reports a cause diarrhea. Patient very anxious about possible side effects of medications. Patient requesting advice as far as dietary changes she could make to improve her constipation. Patient requesting a consult to gastroenterology Dr. Marx. Advised the patient that though I can refer her to Dr. Marx for follow-up this is not a formal referral and I cannot guarantee that her medical insurance will cover a visit without a primary care referral. However I will provide the patient with Dr. Marx contact information for follow-up. The patient with no acute complaints, reports all of her problems are chronic she was here to establish follow-up. Patient also expresses frustration that she has COPD and is supposed to have a nebulizer however her prescription has not been faxed to the medical supply store in [place] and therefore she doesn' t have a nebulizer. Patient also feels her primary care physician has not addressed this. I advised the patient that I will refer her to alternative primary care physicians as well as gastroenterology for follow-up. Patient declined any further workup or treatment tonight in the emergency department. Patient discharged home in stable condition. Disposition Clinical Impression: Abdominal pain Disposition: HOME SELF-CARE Instructions: Abdominal Pain (ED) Additional Instructions: Resume taking MiraLAX once daily every day. Increase fiber in her diet by eating more fruits and vegetables. Drink plenty of water. Is patient prescribed a controlled substance at d/c from ED?: No Referrals: Avril Guzman DO [Primary Care Provider] - 1-2 days [facility] - 1-2 days Venessa Marx MD [STAFF PHYSICIAN] - 1-2 days Time of Disposition: 00:27
== END 2018-11-04 00:59 | disposition home or self-care (01) ==
LOC: EC 22:36
DX: R10.9 Unspecified abdominal pain (principal); M54.9 Dorsalgia, unspecified; F17.200 Nicotine dependence, unspecified, uncomplicated; Z90.49 Acquired absence of other specified parts of digestive tract
CPT/HCPCS: 99283

== ENCOUNTER 2018-12-18 16:12 | Emergency (ER) | payer OTHER ==
[2018-12-18 16:18] VITALS: RESP 18; TEMP 97
[2018-12-18] MEDS ORDERED: ACETAMINOPHEN TAB 325 MG TAB PO STA (16:36)
[2018-12-18] MEDS ORDERED: IPRATROPIUM-ALBUTEROL 3 ML NEB INHALATION STA (16:36)
--- NOTE | 2018-12-18 16:59 | XR ---
EXAMINATION TYPE: XR chest 2V DATE OF EXAM: 12/18/2018 COMPARISON: Chest x-ray from 03/05/2018. HISTORY: History of COPD with difficulty in breathing. TECHNIQUE: Frontal and lateral views of the chest are obtained. FINDINGS: There is chronic emphysematous change with moderate biapical parenchymal scarring. There is no suspicious focal airspace opacity, pleural effusion, or pneumothorax seen bilaterally. The card iac silhouette size is within normal limits. Underlying S-shaped scoliosis is present. IMPRESSION: Chronic emphysematous and parenchymal changes without acute pulmonary process.
--- NOTE | 2018-12-18 17:53 | ED ---
General Adult HPI - General Chief complaint: Shortness of Breath Stated complaint: SOB Time Seen by Provider: 12/18/18 16:23 Source: patient, EMS, RN notes reviewed Mode of arrival: EMS Limitations: no limitations - History of Present Illness Initial comments: 53-year-old female presents emergency Department for multiple complaints. Primary complaint shortness of breath. Patient states she has chronic shortness breath related to her COPD. Patient states that she felt more wheezy than usual today. Denies fever or chills. She does complain of feeling achy. Patient denies chest pain, headache, dizziness, neck pain or neck stiffness. Patient also states that she's having trouble sleeping at nighttime. She has not tried taking any for this. Patient does states she has chronic constipation though she is seen Dr. Sanders for this. - Related Data Previous Rx's Medication Instructions Recorded Melatonin 5 mg PO HS #14 tablet 12/18/18 predniSONE 50 mg PO DAILY #5 tab 12/18/18 Allergies Allergy/AdvReac Type Severity Reaction Status Date / Time No Known Allergies Allergy Verified 12/18/18 16:19 Review of Systems ROS Statement: Those systems with pertinent positive or pertinent negative responses have been documented in the HPI. ROS Other: All systems not noted in ROS Statement are negative. Past Medical History Past Medical History: COPD, Eye Disorder Additional Past Medical History / Comment(s): "CHRONIC BACK PAIN", "LEG SWELLING AND LEG CRAMPS AT TIMES", DIFFIUCLTY SWALLOWING PILLS AND CERTAIN FOODS , BILATERAL MACULAR DEGENERATION, "HEADACHES", CONSTIPAION AND SOMETIMES DIARRHEA ALONG WITH ABDOMINAL CRAMPS. History of Any Multi-Drug Resistant Organisms: None Reported Past Surgical History: Section, Cholecystectomy Additional Past Surgical History / Comment(s): d&c, egd Past Anesthesia/Blood Transfusion Reactions: No Reported Reaction Past Psychological History: No Psychological Hx Reported Smoking Status: Current every day smoker Past Alcohol Use History: None Reported Past Drug Use History: None Reported - Past Family History Mother Additional Family Medical History / Comment(s): GALLSTONES, BURSITIS. MOTHER OF LUNG CANCER AT THE AGE OF 73YRS. SHE WAS A SMOKER. Father Family Medical History: Skin Disorder Additional Family Medical History / Comment(s): FATHER HAS GOUT. HE IS 76YRS OLD. General Exam Limitations: no limitations General appearance: alert, in no apparent distress Head exam: Present: atraumatic, normocephalic, normal inspection Respiratory exam: Present: wheezes (Minimal). Absent: normal lung sounds bilaterally, respiratory distress, rales, rhonchi, stridor Cardiovascular Exam: Present: regular rate, normal rhythm, normal heart sounds. Absent: systolic murmur, diastolic murmur, rubs, gallop, clicks GI/Abdominal exam: Present: soft, normal bowel sounds. Absent: distended, tenderness, guarding, rebound, rigid Back exam: Absent: CVA tenderness (R), CVA tenderness (L) Neurological exam: Present: alert, oriented X3, CN II-XII intact Skin exam: Present: warm, dry, intact, normal color. Absent: rash Course Vital Signs 12/18/18 12/18/18 12/18/18 16:14 17:30 17:39 Temperature 97 F L Pulse Rate 74 74 76 Respiratory 18 Rate Blood Pressure 113/70 O2 Sat by Pulse 99 Oximetry Medical Decision Making - Medical Decision Making 53-year-old female presented for shortness of breath. Patient does have underlying COPD given breathing treatment. Patient is improved at this time will be given steroids to home multiple follow-up with PCP. Patient we given melatonin she's having difficulty sleeping at nighttime. Smoking cessation was counseled in detail greater than 3 mins - Lab Data Lab Results 12/18/18 Range/Units 17:08 Influenza Type A RNA Not Detected (Not Detectd) Influenza Type B (PCR) Not Detected (Not Detectd) Disposition Clinical Impression: COPD (chronic obstructive pulmonary disease), Insomnia Disposition: HOME SELF-CARE Condition: Stable Instructions (If sedation given, give patient instructions): COPD (Chronic Obstructive Pulmonary Disease) (ED) Additional Instructions: Please return to the Emergency Department if symptoms worsen or any other concerns. Prescriptions: Melatonin 5 mg PO HS #14 tablet predniSONE 50 mg PO DAILY #5 tab Is patient prescribed a controlled substance at d/c from ED?: No Referrals: Avril Guzman DO [Primary Care Provider] - 1-2 days Time of Disposition: 17:53
[2018-12-18 18:04] VITALS: BP 114/74; PULSE 66
== END 2018-12-18 18:03 | disposition home or self-care (01) ==
LOC: EC 16:12
DX: J44.9 Chronic obstructive pulmonary disease, unspecified (principal); G47.00 Insomnia, unspecified; F17.200 Nicotine dependence, unspecified, uncomplicated
CPT/HCPCS: 71046; 87502; 94640; 99285

== ENCOUNTER 2018-12-24 11:00 | Emergency (ER) | payer OTHER ==
[2018-12-24 11:08] VITALS: RESP 18
[2018-12-24] MEDS ORDERED: SODIUM CHLORIDE 0.9% 1,000 ML IV ONE (11:12)
[2018-12-24] MEDS ORDERED: KETOROLAC 30 MG/ML 1 ML VIAL IVP STA (11:12)
--- NOTE | 2018-12-24 11:15 | ED ---
General Adult HPI - General Chief complaint: Chest Pain Stated complaint: CHEST PAIN, HERBER Time Seen by Provider: 12/24/18 11:02 Source: patient, EMS, RN notes reviewed, old records reviewed Mode of arrival: EMS Limitations: no limitations - History of Present Illness Initial comments: 53-year-old female presents with multiple complaints. Patient has complaint of pain from the top of her head to her toes. She states has been ongoing for the past one year. She does report chest pain and abdominal pain. She reports extremity pain. Denies any injury. Denies fever or chills. She has had some nausea with no vomiting. She states she's had issues with her bowels including constipation and diarrhea. No significant diarrhea over the past one week. Patient's denies radiating central chest pain. The pain she is describing her chest is right sided rib pain worse with coughing. She has history of COPD and is currently smoking. She states she does have a mild persistent cough, no worsening of cough, no worsening of dyspnea. - Related Data Home Medications Medication Instructions Recorded Confirmed Naproxen Sodium [Aleve] 220 mg PO DAILY PRN 12/24/18 12/24/18 Allergies Allergy/AdvReac Type Severity Reaction Status Date / Time No Known Allergies Allergy Verified 12/24/18 11:34 Review of Systems ROS Statement: Those systems with pertinent positive or pertinent negative responses have been documented in the HPI. ROS Other: All systems not noted in ROS Statement are negative. Past Medical History Past Medical History: COPD, Eye Disorder Additional Past Medical History / Comment(s): "CHRONIC BACK PAIN", "LEG SWELLING AND LEG CRAMPS AT TIMES", DIFFIUCLTY SWALLOWING PILLS AND CERTAIN FOODS , BILATERAL MACULAR DEGENERATION, "HEADACHES", CONSTIPAION AND SOMETIMES DIARRHEA ALONG WITH ABDOMINAL CRAMPS. History of Any Multi-Drug Resistant Organisms: None Reported Past Surgical History: Section, Cholecystectomy Additional Past Surgical History / Comment(s): d&c, egd Past Anesthesia/Blood Transfusion Reactions: No Reported Reaction Past Psychological History: No Psychological Hx Reported Smoking Status: Current every day smoker Past Alcohol Use History: None Reported Past Drug Use History: None Reported - Past Family History Mother Additional Family Medical History / Comment(s): GALLSTONES, BURSITIS. MOTHER OF LUNG CANCER AT THE AGE OF 73YRS. SHE WAS A SMOKER. Father Family Medical History: Skin Disorder Additional Family Medical History / Comment(s): FATHER HAS GOUT. HE IS 76YRS OLD. General Exam Limitations: no limitations General appearance: alert, in no apparent distress Head exam: Present: atraumatic, normocephalic Eye exam: Present: normal appearance, PERRL ENT exam: Present: normal exam Neck exam: Present: normal inspection Respiratory exam: Present: normal lung sounds bilaterally. Absent: respiratory distress Cardiovascular Exam: Present: regular rate, normal rhythm GI/Abdominal exam: Present: soft. Absent: distended, tenderness Extremities exam: Present: normal inspection, normal capillary refill. Absent: pedal edema Back exam: Present: normal inspection, full ROM. Absent: vertebral tenderness Neurological exam: Present: alert, oriented X3, CN II-XII intact. Absent: motor sensory deficit Psychiatric exam: Present: normal affect, normal mood Skin exam: Present: warm, dry. Absent: cyanosis, diaphoretic Course Vital Signs 12/24/18 12/24/18 12/24/18 11:01 11:17 12:37 Temperature 98.2 F Pulse Rate 66 57 L Pulse Rate [ 63 Nurses' Registry Director ] Respiratory 18 18 Rate Blood Pressure 114/77 99/59 O2 Sat by Pulse 100 98 Oximetry - Reevaluation(s) Reevaluation #1: 12/24/18 13:19 Patient feels much better after one shot of Toradol. Resting comfortably. EKG Findings - EKG Comments: EKG Findings:: EKG: Normal sinus rhythm ,No ST segment elevation or depression, rate of 66, ME interval 118, QRS duration 102, QTC 450 Medical Decision Making - Medical Decision Making 53-year-old female presenting with multiple complaints, may complaint is pain from the top of her head to the tip of her toes. She does endorse chest pain, this is nonradiating, worse with cough history of emphysema, COPD. Patient appears stable vitals. She is given Toradol in the emergency department with improvement of her symptoms. She has nonischemic EKG, chest x-ray negative for acute cardiopulmonary disease consistent with COPD. Normal CBC, mild electrolyte abnormalities with sodium 132, magnesium 1.5 this is replaced. Troponin is negative. Doubt cardiac cause of her chest pain. Symptoms are chronic in nature for approximately one year. Patient can follow up with her primary care physician at this time return with worsening or changing symptoms. - Lab Data Result diagrams: 12/24/18 11:25 12/24/18 11:25 Lab Results 12/24/18 12/24/18 12/24/18 Range/Units 11:25 11:25 11:25 WBC 6.9 (3.8-10.6) k/uL RBC 4.10 (3.80-5.40) m/uL Hgb 12.3 (11.4-16.0) gm/dL Hct 36.6 (34.0-46.0) % MCV 89.2 (80.0-100.0) fL MCH 29.9 (25.0-35.0) pg MCHC 33.5 (31.0-37.0) g/dL RDW 12.0 (11.5-15.5) % Plt Count 130 L (150-450) k/uL Neutrophils % 72 % Lymphocytes % 21 % Monocytes % 3 % Eosinophils % 3 % Basophils % 0 % Neutrophils # 5.0 (1.3-7.7) k/uL Lymphocytes # 1.4 (1.0-4.8) k/uL Monocytes # 0.2 (0-1.0) k/uL Eosinophils # 0.2 (0-0.7) k/uL Basophils # 0.0 (0-0.2) k/uL PT (9.0-12.0) sec INR (<1.2) APTT (22.0-30.0) sec Sodium 132 L (137-145) mmol/L Potassium 4.2 (3.5-5.1) mmol/L Chloride 98 (98-107) mmol/L Carbon Dioxide 28 (22-30) mmol/L Anion Gap 6 mmol/L BUN 4 L (7-17) mg/dL Creatinine 0.64 (0.52-1.04) mg/dL Est GFR (CKD-EPI)AfAm >90 (>60 ml/min/1.73 sqM) Est GFR (CKD-EPI)NonAf >90 (>60 ml/min/1.73 sqM) Glucose 89 (74-99) mg/dL Calcium 9.3 (8.4-10.2) mg/dL Magnesium 1.5 L (1.6-2.3) mg/dL Total Bilirubin 0.6 (0.2-1.3) mg/dL AST 19 (14-36) U/L ALT 16 (9-52) U/L Alkaline Phosphatase 82 (38-126) U/L Total Creatine Kinase 66 (30-135) U/L CK-MB (CK-2) 0.2 (0.0-2.4) ng/mL CK-MB (CK-2) Rel Index 0.3 Troponin I <0.012 (0.000-0.034) ng/mL Total Protein 6.5 (6.3-8.2) g/dL Albumin 3.8 (3.5-5.0) g/dL Lipase 179 (23-300) U/L 12/24/18 Range/Units 12:34 WBC (3.8-10.6) k/uL RBC (3.80-5.40) m/uL Hgb (11.4-16.0) gm/dL Hct (34.0-46.0) % MCV (80.0-100.0) fL MCH (25.0-35.0) pg MCHC (31.0-37.0) g/dL RDW (11.5-15.5) % Plt Count (150-450) k/uL Neutrophils % % Lymphocytes % % Monocytes % % Eosinophils % % Basophils % % Neutrophils # (1.3-7.7) k/uL Lymphocytes # (1.0-4.8) k/uL Monocytes # (0-1.0) k/uL Eosinophils # (0-0.7) k/uL Basophils # (0-0.2) k/uL PT 10.6 (9.0-12.0) sec INR 1.0 (<1.2) APTT 25.2 (22.0-30.0) sec Sodium (137-145) mmol/L Potassium (3.5-5.1) mmol/L Chloride (98-107) mmol/L Carbon Dioxide (22-30) mmol/L Anion Gap mmol/L BUN (7-17) mg/dL Creatinine (0.52-1.04) mg/dL Est GFR (CKD-EPI)AfAm (>60 ml/min/1.73 sqM) Est GFR (CKD-EPI)NonAf (>60 ml/min/1.73 sqM) Glucose (74-99) mg/dL Calcium (8.4-10.2) mg/dL Magnesium (1.6-2.3) mg/dL Total Bilirubin (0.2-1.3) mg/dL AST (14-36) U/L ALT (9-52) U/L Alkaline Phosphatase (38-126) U/L Total Creatine Kinase (30-135) U/L CK-MB (CK-2) (0.0-2.4) ng/mL CK-MB (CK-2) Rel Index Troponin I (0.000-0.034) ng/mL Total Protein (6.3-8.2) g/dL Albumin (3.5-5.0) g/dL Lipase (23-300) U/L Disposition Clinical Impression: Chest pain, Chronic pain Disposition: HOME SELF-CARE Condition: Good Instructions (If sedation given, give patient instructions): Chest Pain (ED), Chronic Pain (ED) Is patient prescribed a controlled substance at d/c from ED?: No Referrals: Avril Guzman DO [Primary Care Provider] - 1-2 days Time of Disposition: 13:21
[2018-12-24 11:42] LABS: Basophils % (A) 0 %; Eosinophils # (A) 0.2 k/uL (0-0.7); Eosinophils % (A) 3 %; HCT 36.6 % (34.0-46.0); HGB 12.3 gm/dL (11.4-16.0); Lymphocytes # (A) 1.4 k/uL (1.0-4.8); Lymphocytes % (A) 21 %; MCH 29.9 pg (25.0-35.0); MCHC 33.5 g/dL (31.0-37.0); MCV 89.2 fL (80.0-100.0); Mean Platelet Volume 7.6; Monocytes # (A) 0.2 k/uL (0-1.0); Monocytes % (A) 3 %; Neutrophils % (A) 72 %; Platelet Count 130 k/uL (150-450); WBC 6.9 k/uL (3.8-10.6)
[2018-12-24 11:52] LABS: ALT 16 U/L (9-52); AST 19 U/L (14-36); Albumin 3.8 g/dL (3.5-5.0); Alkaline Phosphatase 82 U/L (38-126); Anion Gap 6 mmol/L; Blood Urea Nitrogen 4 mg/dL (7-17); Calcium 9.3 mg/dL (8.4-10.2); Carbon Dioxide 28 mmol/L (22-30); Chloride 98 mmol/L (98-107); Glucose 89 mg/dL (74-99); Lipase 179 U/L (23-300); Magnesium 1.5 mg/dL (1.6-2.3); Potassium 4.2 mmol/L (3.5-5.1); Sodium 132 mmol/L (137-145); Total Bilirubin 0.6 mg/dL (0.2-1.3); Total Protein 6.5 g/dL (6.3-8.2)
--- NOTE | 2018-12-24 11:53 | XR ---
EXAMINATION TYPE: XR chest 2V DATE OF EXAM: 12/24/2018 COMPARISON: Chest x-ray from 6 days ago. HISTORY: Chest pain for 2 weeks. TECHNIQUE: Frontal and lateral views of the chest are obtained. FINDINGS: There is chronic emphysematous change with severe biapical pleural/parenchymal scarring an d additional scattered areas of parenchymal scarring bilaterally. There is suspected mild bilateral b ibasilar pleural thickening. No new focal airspace opacity or pneumothorax is evident bilaterally. T he cardiac silhouette size is within normal limits. The osseous structures are intact. Cholecystect kian clips are redemonstrated. IMPRESSION: Chronic emphysematous and parenchymal changes without acute pulmonary process.
[2018-12-24 11:59] LABS: Creatine Kinase 66 U/L (30-135)
[2018-12-24 12:12] LABS: Creatine Kinase MB 0.2 ng/mL (0.0-2.4); Troponin I <0.012 ng/mL (0.000-0.034)
[2018-12-24] MEDS ORDERED: MAGNESIUM SULFATE-D5W PMX 1 GM in DEXTROSE/WATER 1 100ML.BAG IVPB ONE (12:20)
[2018-12-24 12:59] LABS: Partial Thromboplastin Time 25.2 sec (22.0-30.0); Prothrombin Time 10.6 sec (9.0-12.0)
[2018-12-24 13:59] VITALS: BP 97/62; PULSE 58; TEMP 98
== END 2018-12-24 14:05 | disposition home or self-care (01) ==
LOC: EC 11:00
DX: R07.81 Pleurodynia (principal); G89.29 Other chronic pain; E87.8 Other disorders of electrolyte and fluid balance, not elsewhere classified; J43.9 Emphysema, unspecified; R10.9 Unspecified abdominal pain; R11.0 Nausea; K59.00 Constipation, unspecified; R05 Cough; M79.609 Pain in unspecified limb; F17.200 Nicotine dependence, unspecified, uncomplicated; Z90.49 Acquired absence of other specified parts of digestive tract; Z80.1 Family history of malignant neoplasm of trachea, bronchus and lung
CPT/HCPCS: 36415; 93005; 80053; 82550; 82553; 83690; 83735; 84484; 85025; 85610; 85730; 71046; 99285; 96365; 96375; 96361; J1885; J3475

== ENCOUNTER 2019-03-22 21:18 | Emergency (ER) | payer OTHER ==
[2019-03-22 21:24] VITALS: BP 121/69; RESP 16; TEMP 98.2
[2019-03-22] MEDS ORDERED: FLUORESCEIN STRIPS 1 MG STRIP LEFT EYE ONE (21:47)
[2019-03-22] MEDS ORDERED: PROPARACAINE 0.5% OPHTH DROPS 15 ML BTL LEFT EYE STA (21:47)
[2019-03-22] MEDS ORDERED: MORPHINE SULFATE 4 MG/ML SYRINGE IM STA (21:49)
[2019-03-22] MEDS ORDERED: valACYclovir 500 MG TAB PO SCH (22:00)
--- NOTE | 2019-03-22 22:07 | ED ---
Skin/Abscess/FB HPI - General Chief complaint: Skin/Abscess/Foreign Body Stated complaint: Shingles/UTI Time Seen by Provider: 03/22/19 21:36 Source: patient Mode of arrival: ambulatory Limitations: no limitations - History of Present Illness Initial comments: Kyleigh is a 53-year-old female presents the emergency department today from urgent care for evaluation of rash on her face. Patient reports that 3 days ago she began experiencing a rash around her right pentecostal with pain in her right parietal scalp and right forehead. Patient reports the rash has spread from her temporal area near her eye and onto her forehead. Patient was seen and evaluated in urgent care there is concerned she may have shingles and she was transferred to the ER for evaluation. Patient denies any eye pain or change in vision. Patient has no history of shingles in the past. Patient is not diabetic. She also states she is having some pain with urination and thinks she has a urinary tract infection. - Related Data Previous Rx's Medication Instructions Recorded Cephalexin [Keflex] 500 mg PO Q6HR 3 Days #12 cap 03/22/19 Gabapentin 600 mg PO TID #60 tab 03/22/19 HYDROcodone/APAP 5-325MG [[place] 5] 1 each PO Q4HR PRN #12 tab 03/22/19 predniSONE 50 mg PO DAILY #5 tab 03/22/19 valACYclovir HCL [Valacyclovir] 1,000 mg PO TID #21 tab 03/22/19 Allergies Allergy/AdvReac Type Severity Reaction Status Date / Time No Known Allergies Allergy Verified 03/22/19 21:43 Review of Systems ROS Statement: Those systems with pertinent positive or pertinent negative responses have been documented in the HPI. ROS Other: All systems not noted in ROS Statement are negative. Past Medical History Past Medical History: COPD, Eye Disorder Additional Past Medical History / Comment(s): "CHRONIC BACK PAIN", "LEG SWELLING AND LEG CRAMPS AT TIMES", DIFFIUCLTY SWALLOWING PILLS AND CERTAIN FOODS, BILATERAL MACULAR DEGENERATION, "HEADACHES", CONSTIPAION AND SOMETIMES DIARRHEA ALONG WITH ABDOMINAL CRAMPS. History of Any Multi-Drug Resistant Organisms: None Reported Past Surgical History: Section, Cholecystectomy Additional Past Surgical History / Comment(s): d&c, egd Past Anesthesia/Blood Transfusion Reactions: No Reported Reaction Past Psychological History: No Psychological Hx Reported Smoking Status: Current every day smoker Past Alcohol Use History: None Reported Past Drug Use History: None Reported - Past Family History Mother Additional Family Medical History / Comment(s): GALLSTONES, BURSITIS. MOTHER OF LUNG CANCER AT THE AGE OF 73YRS. SHE WAS A SMOKER. Father Family Medical History: Skin Disorder Additional Family Medical History / Comment(s): FATHER HAS GOUT. HE IS 76YRS OLD. General Exam - General Exam Comments Initial Comments: Physical Exam GENERAL: Chronically ill-appearing, underweight, pale appears much older than stated age HENT: Normocephalic, Atraumatic. EYES: PERRL, EOMI No conjunctival pallor Dendritic lesion at the 12 o'clock position on the right eye PULMONARY: Unlabored respirations. No audible rales rhonchi or wheezing was noted. CARDIOVASCULAR: Tachycardic, regular Warm and well perfused extremities ABDOMEN: Soft and nontender with normal bowel sounds. SKIN: Vesicular rash in the V1 distribution of the right trigeminal nerve consistent with shingles Positive Cha sign : Deferred NEUROLOGIC: Patient is alert and oriented x3. Moving all extremities spontaneously MUSCULOSKELETAL: Normal extremities with adequate strength and full range of motion. No lower extremity swelling or edema. No calf tenderness. PSYCHIATRIC: Normal psychiatric evaluation. Limitations: no limitations Course Vital Signs 03/22/19 03/22/19 21:19 22:47 Temperature 98.2 F Pulse Rate 118 H 91 Respiratory 16 Rate Blood Pressure 121/69 O2 Sat by Pulse 100 98 Oximetry Medical Decision Making - Medical Decision Making Patient was seen and evaluated history is obtained from patient On physical exam patient is noted to have shingles in the V1 distribution on the right side, she does have a positive Cha sign, the eye was stained and it was turning for a dendritic lesion at the 12 o'clock position over the iris, not over the pupil. Patient care was discussed with ophthalmology on-call Dr. Contreras who recommends oral antivirals, pain management. He will see the patient in office tomorrow. Dose of Valtrex given in the ER. Prescription for Valtrex was provided. Urinalysis was also positive for urinary tract infection first dose of Keflex was given in the ER the patient was discharged home on Keflex. The importance of follow-up with ophthalmology was discussed with the patient. I advised her that she has risk of vision loss if she does not follow up with ophthalmology. Patient's breast understanding of that she will contact Dr. Contreras's office in the morning for follow-up. All questions pertaining care were answered best my ability return parameters were discussed patient was discharg ed home - Lab Data Lab Results 03/22/19 Range/Units 22:03 Urine Color Dark Yellow Urine Appearance Turbid H (Clear) Urine pH 5.5 (5.0-8.0) Ur Specific [place] 1.028 (1.001-1.035) Urine Protein 1+ H (Negative) Urine Glucose (UA) Negative (Negative) Urine Ketones Trace H (Negative) Urine Blood Moderate H (Negative) Urine Nitrite Positive H (Negative) Urine Bilirubin Negative (Negative) Urine Urobilinogen 2.0 (<2.0) mg/dL Ur Leukocyte Esterase Large H (Negative) Urine RBC 38 H (0-5) /hpf Urine WBC >182 H (0-5) /hpf Urine WBC Clumps Many H (None) /hpf Ur Squamous Epith Cells 25 H (0-4) /hpf Urine Bacteria Moderate H (None) /hpf Urine Mucus Many H (None) /hpf Disposition Clinical Impression: Shingles rash, UTI (urinary tract infection) Disposition: HOME SELF-CARE Condition: Stable Instructions (If sedation given, give patient instructions): Shingles (ED) Additional Instructions: Follow up with Dr. Contreras tomorrow, he will be in his [place] office and will be able to see you if you call the office and let them know you need to be seen for shingles of the face. Prescriptions: Gabapentin 600 mg PO TID #60 tab Cephalexin [Keflex] 500 mg PO Q6HR 3 Days #12 cap HYDROcodone/APAP 5-325MG [[place] 5] 1 each PO Q4HR PRN #12 tab PRN Reason: Pain predniSONE 50 mg PO DAILY #5 tab valACYclovir HCL [Valacyclovir] 1,000 mg PO TID #21 tab Is patient prescribed a controlled substance at d/c from ED?: No Referrals: Avril Guzman DO [Primary Care Provider] - 1-2 days Roe Contreras MD [STAFF PHYSICIAN] - 1-2 days
[2019-03-22 22:19] LABS: Appearance,Urine Turbid (Clear); Bacteria,Urine Moderate /hpf; Bilirubin,Urine Negative (Negative); Blood,Urine Moderate (Negative); Color,Urine Dark Yellow; Glucose,Urine (UA) Negative (Negative); Ketones,Urine Trace (Negative); Leukocyte Esterase,Urine Large (Negative); Mucus,Urine Many /hpf; Nitrite,Urine Positive (Negative); PH, Urine 5.5 (5.0-8.0); Protein,Urine 1+ (Negative); RBC,Urine 38 /hpf (0-5); Specific Gravity,Urine 1.028 (1.001-1.035); Squamous Epithelial Cell,Urine 25 /hpf (0-4); WBC,Urine >182 /hpf (0-5)
[2019-03-22] MEDS ORDERED: CEPHALEXIN 500MG STARTER PACK 4 CAP BTL PO STA (22:21)
[2019-03-22 22:50] VITALS: PULSE 91
== END 2019-03-22 22:50 | disposition home or self-care (01) ==
LOC: EC 21:18
DX: B02.9 Zoster without complications (principal); N39.0 Urinary tract infection, site not specified; F17.200 Nicotine dependence, unspecified, uncomplicated
CPT/HCPCS: 81001; 87086; 99283; 96372; J2270

== ENCOUNTER 2022-12-09 23:59 | Emergency (ER) | payer OTHER ==
[2022-12-10 00:09] VITALS: TEMP 98
[2022-12-10] MEDS ORDERED: IBUPROFEN 600 MG TAB PO STA (00:21)
[2022-12-10] MEDS ORDERED: SODIUM CHLORIDE 0.9% 1,000 ML IV STA (00:21)
[2022-12-10 00:55] LABS: Basophils # (A) 0.1 k/uL (0-0.2); Basophils % (A) 1 %; Eosinophils # (A) 0.1 k/uL (0-0.7); Eosinophils % (A) 1 %; HCT 37.7 % (34.0-46.0); HGB 12.6 gm/dL (11.4-16.0); Lymphocytes # (A) 1.3 k/uL (1.0-4.8); Lymphocytes % (A) 13 %; MCH 30.3 pg (25.0-35.0); MCHC 33.3 g/dL (31.0-37.0); MCV 90.9 fL (80.0-100.0); Mean Platelet Volume 7.7; Monocytes # (A) 0.3 k/uL (0-1.0); Monocytes % (A) 3 %; Neutrophils # (A) 8.3 k/uL (1.3-7.7); Neutrophils % (A) 82 %; Platelet Count 235 k/uL (150-450); RBC 4.14 m/uL (3.80-5.40); RDW 11.7 % (11.5-15.5); WBC 10.1 k/uL (3.8-10.6)
[2022-12-10 01:09] LABS: ALT 11 U/L (4-34); AST 21 U/L (14-36); African American GFR (CKD) >90 (>60 ml/min/1.73 sqM); Alkaline Phosphatase 103 U/L (38-126); Anion Gap 5 mmol/L; Blood Urea Nitrogen 10 mg/dL (7-17); Calcium 8.8 mg/dL (8.4-10.2); Carbon Dioxide 28 mmol/L (22-30); Chloride 103 mmol/L (98-107); Glucose 102 mg/dL (74-99); Lipase 133 U/L (23-300); Non-African American GFR(CKD) >90 (>60 ml/min/1.73 sqM); Potassium 4.4 mmol/L (3.5-5.1); Sodium 136 mmol/L (137-145); Total Bilirubin 0.5 mg/dL (0.2-1.3); Total Protein 6.8 g/dL (6.3-8.2)
--- NOTE | 2022-12-10 01:13 | XR ---
EXAMINATION TYPE: XR KUB DATE OF EXAM: 12/10/2022 COMPARISON: 2319 HISTORY: Abdominal pain TECHNIQUE: FINDINGS: Single view upright was obtained. There is no sign of intestinal obstruction or pneumoperit oneum. Fecal pattern is normal. No evidence of a mass. There are surgical clips over the lumbar spine on the right side there is pulmonary hyperinflation. No pathologic calcifications over the kidneys. IMPRESSION: Nonacute abdomen. There is probably COPD. No change.
[2022-12-10 01:24] LABS: Appearance,Urine Clear (Clear); Bilirubin,Urine Negative (Negative); Blood,Urine Small (Negative); Color,Urine Colorless; Glucose,Urine (UA) Negative (Negative); Ketones,Urine Negative (Negative); Leukocyte Esterase,Urine Negative (Negative); Nitrite,Urine Negative (Negative); PH, Urine 6.5 (5.0-8.0); Protein,Urine Negative (Negative); RBC,Urine 2 /hpf (0-5); Specific Gravity,Urine 1.003 (1.001-1.035); Squamous Epithelial Cell,Urine 1 /hpf (0-4); Urobilinogen,Urine <2.0 mg/dL (<2.0); WBC,Urine 1 /hpf (0-5)
[2022-12-10] MEDS ORDERED: polyethylene glycoL 3350 17 GM POWD.PACK PO STA (01:24)
--- NOTE | 2022-12-10 01:26 | ED ---
Abdominal Pain HPI - General Chief Complaint: Abdominal Pain Stated Complaint: ABD Pain,Back Pain, Weakness in legs Time Seen by Provider: 12/10/22 00:15 Source: patient, RN notes reviewed Mode of arrival: wheelchair Limitations: no limitations - History of Present Illness Initial Comments: This a 56-year-old female presents emergency Department with multiple complaints. Patient states her primary complaint that she is constipated. She states she started having abdominal cramping related to her constipation around 5 PM. She states she took 2 Tylenol she did not take any stool softeners or laxatives. She states the patella did help her pain. Patient states that she's had no prior bowel obstruction she suffers with chronic constipation secondary to poor eating habits. Second complaint is she is requesting information on nutrition, 163 to a dietitian. Patient also states that she is a heavy smoker needs to stop smoking. She denies any chest pain no increasing shortness of breath. Patient complains of scoliosis and chronic pain in which she states the Tylenol is not helping this discomfort. She denies any bowel, bladder retention denies fevers or chills no other associated complaints. - Related Data Previous Rx's Medication Instructions Recorded Acetaminophen Tab [Tylenol Tab] 500 mg PO Q6H PRN 5 Days #20 tablet 01/08/20 Ibuprofen [Motrin] 600 mg PO Q8HR PRN #20 tab 12/10/22 Nicotine 21Mg/24Hr Patch [Habitrol] 1 each TRANSDERM DAILY #14 patch 12/10/22 polyethylene glycoL 3350 [Miralax] 17 gm PO DAILY #14 packet 12/10/22 Allergies Allergy/AdvReac Type Severity Reaction Status Date / Time hydrocodone AdvReac Unknown Verified 12/10/22 00:09 Review of Systems ROS Statement: Those systems with pertinent positive or pertinent negative responses have been documented in the HPI. ROS Other: All systems not noted in ROS Statement are negative. Past Medical History Past Medical History: COPD, Eye Disorder Additional Past Medical History / Comment(s): "CHRONIC BACK PAIN", "LEG SWELLING AND LEG CRAMPS AT TIMES", DIFFIUCLTY SWALLOWING PILLS AND CERTAIN FOODS, BILATERAL MACULAR DEGENERATION, "HEADACHES", CONSTIPAION AND SOMETIMES DIARRHEA ALONG WITH ABDOMINAL CRAMPS. History of Any Multi-Drug Resistant Organisms: None Reported Past Surgical History: Section, Cholecystectomy Additional Past Surgical History / Comment(s): d&c, egd Past Anesthesia/Blood Transfusion Reactions: No Reported Reaction Past Psychological History: No Psychological Hx Reported Smoking Status: Current every day smoker Past Alcohol Use History: None Reported Past Drug Use History: None Reported - Past Family History Mother Additional Family Medical History / Comment(s): GALLSTONES, BURSITIS. MOTHER OF LUNG CANCER AT THE AGE OF 73YRS. SHE WAS A SMOKER. Father Family Medical History: Skin Disorder Additional Family Medical History / Comment(s): FATHER HAS GOUT. HE IS 76YRS OLD. General Exam Limitations: no limitations General appearance: alert, in no apparent distress Head exam: Present: atraumatic, normocephalic, normal inspection Eye exam: Present: normal appearance, PERRL, EOMI. Absent: scleral icterus, conjunctival injection, periorbital swelling ENT exam: Present: normal exam, normal oropharynx, mucous membranes moist Neck exam: Present: normal inspection. Absent: tenderness, meningismus, lymphadenopathy Respiratory exam: Present: normal lung sounds bilaterally. Absent: respiratory distress, wheezes, rales, rhonchi, stridor Cardiovascular Exam: Present: regular rate, normal rhythm, normal heart sounds. Absent: systolic murmur, diastolic murmur, rubs, gallop, clicks GI/Abdominal exam: Present: soft, tenderness (Mild lower), normal bowel sounds. Absent: distended, guarding, rebound, rigid Course Vital Signs 12/10/22 12/10/22 00:04 01:46 Temperature 98 F Pulse Rate 82 76 Respiratory 19 18 Rate Blood Pressure 130/80 126/83 O2 Sat by Pulse 100 97 Oximetry Medical Decision Making - Medical Decision Making Was pt. sent in by a medical professional or institution (, PA, ECONOMIC DEVELOPMENT COORDINATOR, urgent care, hospital, or long-term...) When possible be specific @ -No Did you speak to anyone other than the patient for history (EMS, parent, family, police, friend...)? What history was obtained from this source @ -No Did you review nursing and triage notes (agree or disagree)? Why? @ -I reviewed and agree with nursing and triage notes Were old charts reviewed (outside hosp., previous admission, EMS record, old EKG, old radiological studies, urgent care reports/EKG's, long-term records)? Report findings @ -No old charts were reviewed Differential Diagnosis (chest pain, altered mental status, abdominal pain women, abdominal pain men, vaginal bleeding, weakness, fever, dyspnea, syncope, headache, dizziness, GI bleed, back pain, seizure, CVA, palpatations, mental health)? @ -Constipation, bowel obstruction, abdominal pain, COPD, weight loss, malnutrition, this is is not all-inclusive EKG interpreted by me (3pts min.). @ -None X-rays interpreted by me (1pt min.). @ -X-ray KUB shows moderate constipation, COPD changes at the base of the lungs CT interpreted by me (1pt min.). @ -None done U/S interpreted by me (1pt. min.). @ -None done What testing was considered but not performed or refused? (CT, X-rays, U/S, labs)? Why? @ -None What meds were considered but not given or refused? Why? @ -None Did you discuss the management of the patient with other professionals (mile stapleton i.eKelsea Piedra, PA, ECONOMIC DEVELOPMENT COORDINATOR, lab, RT, psych nurse, social science instructor, honing machine set up operator, teacher, community reinvestment act officer, window caser)? Give summary @ -No Was smoking cessation discussed for >3mins.? @ -I discussed smoking cessation for greater than 3 minutes. The risk of smoking were discussed with the patient including but not limited to risks of cancer, stroke, coronary artery disease and COPD. Also discussed with patient were multiple methods of quitting smoking. Lastly we discussed the financial cost of smoking. Was critical care preformed (if so, how long)? @ -No Were there social determinants of health that impacted care today? How? (Homelessness, low income, unemployed, alcoholism, drug addiction, transportation, low edu. Level, literacy, decrease access to med. care, long term, rehab)? @ -No Was there de-escalation of care discussed even if they declined (Discuss DNR or withdrawal of care, Hospice)? DNR status @ -No What co-morbidities impacted this encounter? (DM, HTN, Smoking, COPD, CAD, Cancer, CVA, ARF, Chemo, Hep., AIDS, mental health diagnosis, sleep apnea, morbid obesity)? @ -COPD Was patient admitted / discharged? Hospital course, mention meds given and route, prescriptions, significant lab abnormalities, going to OR and other pertinent info. @ -Discharged patient's x-ray shows moderate constipation she was given MiraLAX was discharged with MiraLAX she states she feels improved after ibuprofen labs are essentially unremarkable. Patient was given multiple options for smoking cessation patient states that she wants try the patch. Patient is advised follow-up PCP regarding referral to the dietitian. Return parameters were discussed Undiagnosed new problem with uncertain prognosis? @ -No Drug Therapy requiring intensive monitoring for toxicity (Heparin, Nitro, Insulin, Cardizem)? @ -No Were any procedures done? @ -No Diagnosis/symptom? @ -Constipation Acute, or Chronic, or Acute on Chronic? @ -Acute on chronic Uncomplicated (without systemic symptoms) or Complicated (systemic symptoms)? @ -Uncomplicated Side effects of treatment? @ -No Exacerbation, Progression, or Severe Exacerbation? @ -No Poses a threat to life or bodily function? How? (Chest pain, [place], NV, pneumonia, PE, COPD, DKA, ARF, appy, cholecystitis, CVA, Diverticulitis, Homicidal, Suicidal, threat to staff... and all critical care pts) @ -No - Lab Data Result diagrams: 12/10/22 00:33 12/10/22 00:33 Lab Results 12/10/22 12/10/22 12/10/22 Range/Units 00:33 00:33 00:48 WBC 10.1 (3.8-10.6) k/uL RBC 4.14 (3.80-5.40) m/uL Hgb 12.6 (11.4-16.0) gm/dL Hct 37.7 (34.0-46.0) % MCV 90.9 (80.0-100.0) fL MCH 30.3 (25.0-35.0) pg MCHC 33.3 (31.0-37.0) g/dL RDW 11.7 (11.5-15.5) % Plt Count 235 (150-450) k/uL MPV 7.7 Neutrophils % 82 % Lymphocytes % 13 % Monocytes % 3 % Eosinophils % 1 % Basophils % 1 % Neutrophils # 8.3 H (1.3-7.7) k/uL Lymphocytes # 1.3 (1.0-4.8) k/uL Monocytes # 0.3 (0-1.0) k/uL Eosinophils # 0.1 (0-0.7) k/uL Basophils # 0.1 (0-0.2) k/uL Sodium 136 L (137-145) mmol/L Potassium 4.4 (3.5-5.1) mmol/L Chloride 103 (98-107) mmol/L Carbon Dioxide 28 (22-30) mmol/L Anion Gap 5 mmol/L BUN 10 (7-17) mg/dL Creatinine 0.74 (0.52-1.04) mg/dL Est GFR (CKD-EPI)AfAm >90 (>60 ml/min/1.73 sqM) Est GFR (CKD-EPI)NonAf >90 (>60 ml/min/1.73 sqM) Glucose 102 H (74-99) mg/dL Calcium 8.8 (8.4-10.2) mg/dL Total Bilirubin 0.5 (0.2-1.3) mg/dL AST 21 (14-36) U/L ALT 11 (4-34) U/L Alkaline Phosphatase 103 (38-126) U/L Total Protein 6.8 (6.3-8.2) g/dL Albumin 4.0 (3.5-5.0) g/dL Lipase 133 (23-300) U/L Urine Color Colorless Urine Appearance Clear (Clear) Urine pH 6.5 (5.0-8.0) Ur Specific [place] 1.003 (1.001-1.035) Urine Protein Negative (Negative) Urine Glucose (UA) Negative (Negative) Urine Ketones Negative (Negative) Urine Blood Small H (Negative) Urine Nitrite Negative (Negative) Urine Bilirubin Negative (Negative) Urine Urobilinogen <2.0 (<2.0) mg/dL Ur Leukocyte Esterase Negative (Negative) Urine RBC 2 (0-5) /hpf Urine WBC 1 (0-5) /hpf Ur Squamous Epith Cells 1 (0-4) /hpf Disposition Clinical Impression: Constipation, COPD (chronic obstructive pulmonary disease) Disposition: HOME SELF-CARE Condition: Stable Instructions (If sedation given, give patient instructions): Constipation (ED) Additional Instructions: Please return to the Emergency Department if symptoms worsen or any other conc erns. Prescriptions: Nicotine 21Mg/24Hr Patch [Habitrol] 1 each TRANSDERM DAILY #14 patch polyethylene glycoL 3350 [Miralax] 17 gm PO DAILY #14 packet Ibuprofen [Motrin] 600 mg PO Q8HR PRN #20 tab PRN Reason: Pain Is patient prescribed a controlled substance at d/c from ED?: No Referrals: Tanika Sierra MD [Primary Care Provider] - 1-2 days Time of Disposition: 01:26
[2022-12-10] MEDS ORDERED: IBUPROFEN 600 MG STARTER PACK 4 TAB BTL PO STA (01:29)
[2022-12-10 01:47] VITALS: BP 126/83; PULSE 76; RESP 18
== END 2022-12-10 01:46 | disposition home or self-care (01) ==
LOC: EC 23:59
DX: K59.00 Constipation, unspecified (principal); J44.9 Chronic obstructive pulmonary disease, unspecified; F17.200 Nicotine dependence, unspecified, uncomplicated; Z88.5 Allergy status to narcotic agent; Z90.49 Acquired absence of other specified parts of digestive tract
CPT/HCPCS: 36415; 74018; 80053; 81001; 83690; 85025; 96360; 99284

== ENCOUNTER 2023-04-19 02:23 | Emergency (ER) | payer OTHER ==
[2023-04-19 02:39] VITALS: BP 127/90; TEMP 98.1
[2023-04-19] MEDS ORDERED: DICYCLOMINE 10 MG/ML 2 ML AMP IM STA (03:52)
[2023-04-19] MEDS ORDERED: PEG 3350 (236 GM/BTL) + LYTES 4,000 ML BOTTLE PO ONE (04:35)
[2023-04-19] MEDS ORDERED: MORPHINE SULFATE 2 MG/ML SYRINGE IV STA (04:35)
--- NOTE | 2023-04-19 04:36 | ED ---
Abdominal Pain HPI - General Chief Complaint: Abdominal Pain Stated Complaint: Weakness,Dehydrated Time Seen by Provider: 04/19/23 02:41 Source: patient Mode of arrival: wheelchair Limitations: no limitations - History of Present Illness Initial Comments: This patient is a 57-year-old woman who presents with complaint that she feels she is constipated. She has been having some intermittent, crampy, diffuse abdominal pain that does seem to move around her abdomen. She states she has been straining to have a bowel movement and as result believe she has flared up hemorrhoids that she has intermittently. She states that her last bowel movement was over 4 days ago now. The patient has not noted rectal bleeding. No nausea or vomiting. She has still been passing flatus. No fever or chills. MD Complaint: abdominal pain, other -: days(s) Location: diffuse Radiation: none Severity: moderate Quality: cramping, fullness Consistency: intermittent Improves With: nothing Worsens With: nothing Associated Symptoms: constipation - Related Data Previous Rx's Medication Instructions Recorded Acetaminophen Tab [Tylenol Tab] 500 mg PO Q6H PRN 5 Days #20 tablet 01/08/20 Ibuprofen [Motrin] 600 mg PO Q8HR PRN #20 tab 12/10/22 Nicotine 21Mg/24Hr Patch [Habitrol] 1 each TRANSDERM DAILY #14 patch 12/10/22 polyethylene glycoL 3350 [Miralax] 17 gm PO DAILY #14 packet 12/10/22 Pramoxine HCl [Proctofoam] 15 gm TP BID #15 gm 04/19/23 Allergies Allergy/AdvReac Type Severity Reaction Status Date / Time dicyclomine [From Bentyl] Allergy Unknown Verified 04/19/23 02:35 hydrocodone AdvReac Unknown Verified 04/19/23 02:35 Review of Systems ROS Statement: Those systems with pertinent positive or pertinent negative responses have been documented in the HPI. ROS Other: All systems not noted in ROS Statement are negative. Constitutional: Denies: fever, chills, weakness Respiratory: Denies: cough, dyspnea Cardiovascular: Denies: chest pain, palpitations, edema Gastrointestinal: Reports: abdominal pain, constipation. Denies: nausea, vomiting, diarrhea, melena, hematochezia Genitourinary: Denies: dysuria, hematuria Musculoskeletal: Denies: back pain Skin: Denies: rash Neurological: Denies: headache, weakness, numbness Past Medical History Past Medical History: COPD, Eye Disorder Additional Past Medical History / Comment(s): "CHRONIC BACK PAIN", "LEG SWELLING AND LEG CRAMPS AT TIMES", DIFFIUCLTY SWALLOWING PILLS AND CERTAIN FOODS, BILATERAL MACULAR DEGENERATION, "HEADACHES", CONSTIPAION AND SOMETIMES DIARRHEA ALONG WITH ABDOMINAL CRAMPS. History of Any Multi-Drug Resistant Organisms: None Reported Past Surgical History: Section, Cholecystectomy Additional Past Surgical History / Comment(s): d&c, egd Past Anesthesia/Blood Transfusion Reactions: No Reported Reaction Past Psychological History: No Psychological Hx Reported Smoking Status: Current every day smoker Past Alcohol Use History: None Reported Past Drug Use History: None Reported - Past Family History Mother Additional Family Medical History / Comment(s): GALLSTONES, BURSITIS. MOTHER OF LUNG CANCER AT THE AGE OF 73YRS. SHE WAS A SMOKER. Father Family Medical History: Skin Disorder Additional Family Medical History / Comment(s): FATHER HAS GOUT. HE IS 76YRS OLD. General Exam Limitations: no limitations General appearance: alert, in no apparent distress Head exam: Present: atraumatic, normocephalic Eye exam: Present: normal appearance. Absent: scleral icterus, conjunctival injection Neck exam: Present: normal inspection Respiratory exam: Present: normal lung sounds bilaterally. Absent: respiratory distress, wheezes, rales, rhonchi, stridor Cardiovascular Exam: Present: regular rate, normal rhythm, normal heart sounds. Absent: systolic murmur, diastolic murmur GI/Abdominal exam: Present: soft, normal bowel sounds. Absent: distended, tenderness, guarding, rebound, rigid, mass, pulsatile mass, hernia Rectal exam: Present: normal rectal tone, hemorrhoids, other (Mixing Machine Tender Cork Gasket present). Absent: heme (+) stool, black stool, bloody stool, fecal impaction, mass, tenderness Extremities exam: Present: normal inspection, normal capillary refill. Absent: pedal edema, calf tenderness Back exam: Present: normal inspection. Absent: CVA tenderness (R), CVA tenderness (L) Neurological exam: Present: alert Skin exam: Present: warm, dry, intact, normal color. Absent: rash Course Vital Signs 04/19/23 04/19/23 02:35 05:04 Temperature 98.1 F Pulse Rate 96 80 Respiratory 16 18 Rate Blood Pressure 127/90 O2 Sat by Pulse 100 98 Oximetry Medical Decision Making - Medical Decision Making The patient did have KUB abdominal x-ray which I interpreted as being negative for free air or obstruction. This patient is 57-year-old woman here with symptoms consistent with constipation. Her abdominal exam is benign with no tenderness. The patient does have moderate external hemorrhoids with no thrombosed hemorrhoids present. There is no stool on rectal exam and discussed having an enema versus taking GoLYTELY and at this point patient will attempt to take GoLYTELY to promote bowel movement. We discussed appropriate further care and follow-up as well as return parameters. The patient is also given prescription for antiemetic hemorrhoidal and follow-up with surgery should these not resolve or should there be any worsening. Also discussed return parameters related to that Was pt. sent in by a medical professional or institution (, PA, DATA COLLECTION TECHNICIAN, urgent care, hospital, or [facility]...) When possible be specific @ -[No] Did you speak to anyone other than the patient for history (EMS, parent, family, police, friend...)? What history was obtained from this source @ -[No] Did you review nursing and triage notes (agree or disagree)? Why? @ -[I reviewed and agree with nursing and triage notes] Were old charts reviewed (outside hosp., previous admission, EMS record, old EKG, old radiological studies, urgent care reports/EKG's, [facility] records)? Report findings @ -[No old charts were reviewed] Differential Diagnosis (chest pain, altered mental status, abdominal pain women, abdominal pain men, vaginal bleeding, weakness, fever, dyspnea, syncope, headache, dizziness, GI bleed, back pain, seizure, CVA, palpatations, mental health, musculoskeletal)? @ -[Differential Abdominal Pain Women: Appendicitis, Cholecystitis, diverticulosis, ischemic bowel, pancreatitis, hepatitis, UTI, gastroenteritis, AAA, incarcerated hernia, bowel obstruction, constipation, inflammatory bowel, hepatitis, peptic ulcer disease, splenic infarction, perforated viscus, vulvitis, ovarian torsion, PID, kidney stone, placenta abruption, this is not meant to be an all-inclusive list EKG interpreted by me (3pts min.). @ -[ X-rays interpreted by me (1pt min.). @ -[As above CT interpreted by me (1pt min.). @ -[None done] U/S interpreted by me (1pt. min.). @ -[None done] What testing was considered but not performed or refused? (CT, X-rays, U/S, labs)? Why? @ -[None] What meds were considered but not given or refused? Why? @ -[None] Did you discuss the management of the patient with other professionals (professionals i.e. DrKelsea, PA, DATA COLLECTION TECHNICIAN, lab, RT, psych nurse, medical social worker, cable dispatcher, teacher, coastal/harbor defense officer, disease case manager rn)? Give summary @ -[No] Was smoking cessation discussed for >3mins.? @ -[No] Was critical care preformed (if so, how long)? @ -[No] Were there social determinants of health that impacted care today? How? (Homelessness, low income, unemployed, alcoholism, drug addiction, transportation, low edu. Level, literacy, decrease access to med. care, care home, rehab)? @ -[No] Was there de-escalation of care discussed even if they declined (Discuss DNR or withdrawal of care, Hospice)? DNR status @ -[No] What co-morbidities impacted this encounter? (DM, HTN, Smoking, COPD, CAD, Cancer, CVA, ARF, Chemo, Hep., AIDS, mental health diagnosis, sleep apnea, morbid obesity)? @ -[None] Was patient admitted / discharged? Hospital course, mention meds given and route, prescriptions, significant lab abnormalities, going to OR and other pertinent info. @ -[Discharged Undiagnosed new problem with uncertain prognosis? @ -[No] Drug Therapy requiring intensive monitoring for toxicity (Heparin, Nitro, Insulin, Cardizem)? @ -[No] Were any procedures done? @ -[No] Diagnosis/symptom? @ -[1. Acute abdominal pain 2. Constipation 3. External hemorrhoids, acute on chronic Acute, or Chronic, or Acute on Chronic? @ -[default] Uncomplicated (without systemic symptoms) or Complicated (systemic symptoms)? @ -[Uncomplicated Side effects of treatment? @ -[No] Exacerbation, Progression, or Severe Exacerbation? @ -[No] Poses a threat to life or bodily function? How? (Chest pain, USA, VT, pneumonia, PE, COPD, DKA, ARF, appy, cholecystitis, CVA, Diverticulitis, Homicidal, Suicidal, threat to staff... and all critical care pts) @ -[No] Disposition Clinical Impression: Constipation, Hemorrhoids Disposition: HOME SELF-CARE Condition: Good Instructions (If sedation given, give patient instructions): Constipation (ED), Hemorrhoids (ED) Prescriptions: Pramoxine HCl [Proctofoam] 15 gm TP BID #15 gm Is patient prescribed a controlled substance at d/c from ED?: No Referrals: Nelly Nelson MD [STAFF PHYSICIAN] - 1-2 days Tanika Sierra MD [Primary Care Provider] - 1-2 days Venessa Marx MD [STAFF PHYSICIAN] - 1-2 days
[2023-04-19 05:05] VITALS: PULSE 80; RESP 18
--- NOTE | 2023-04-19 05:27 | XR ---
EXAM: XR Abdomen, 2 Views CLINICAL HISTORY: ITS.REASON XR Reason: abdominal pain TECHNIQUE: Frontal view of the abdomen/pelvis with upright view of the abdomen. COMPARISON: X-ray dated 12/10/2022 FINDINGS: Intraperitoneal space: No free air. Gastrointestinal tract: Moderate colonic stool burden. No dilation. Bones/joints: Unremarkable. Soft tissues: Surgical clips are seen within the right upper quadrant. IMPRESSION: Nonobstructive bowel gas pattern with no acute findings seen within the abdomen or pelvis.
== END 2023-04-19 05:27 | disposition home or self-care (01) ==
LOC: EC 02:23
DX: K59.00 Constipation, unspecified (principal); K64.9 Unspecified hemorrhoids; J44.9 Chronic obstructive pulmonary disease, unspecified; F17.200 Nicotine dependence, unspecified, uncomplicated; Z88.6 Allergy status to analgesic agent; Z88.8 Allergy status to other drugs, medicaments and biological substances; Z88.5 Allergy status to narcotic agent
CPT/HCPCS: 99283; 74018; 96374; J2270; 96372

== ENCOUNTER 2023-10-06 23:02 | Emergency (ER) | payer OTHER ==
[2023-10-06 23:23] VITALS: RESP 18; TEMP 98.8
[2023-10-07] MEDS ORDERED: MORPHINE SULFATE 4 MG/ML SYRINGE IVP STA
--- NOTE | 2023-10-07 00:14 | ED ---
Abdominal Pain HPI - General Chief Complaint: Abdominal Pain Stated Complaint: Constipation,Abd pain,dizziness Time Seen by Provider: 10/06/23 23:28 Source: patient, RN notes reviewed Mode of arrival: EMS Limitations: no limitations - History of Present Illness Initial Comments: This is a 57-year-old female who presents to the emergency department for body pain and constipation. Reports a long-standing history of constipation over the last several years. States that she has tried multiple medications without any relief in symptoms. She is also complaining of body pain, which is making it difficult for her to sleep. When she was speaking with EMS on the way here, they recommended she try probiotics. States that she had never considered this before, and is something she will look into. She is also trying to get in with a holistic medicine doctor to further investigate what is going on with regards to her ongoing abdominal issues. At this point she states that she would like pain medication and discharge home. She does not feel that any workup is necessary at this time. MD Complaint: abdominal pain - Related Data Previous Rx's Medication Instructions Recorded Acetaminophen Tab [Tylenol Tab] 500 mg PO Q6H PRN 5 Days #20 tablet 01/08/20 Ibuprofen [Motrin] 600 mg PO Q8HR PRN #20 tab 12/10/22 Nicotine 21Mg/24Hr Patch [Habitrol] 1 each TRANSDERM DAILY #14 patch 12/10/22 polyethylene glycoL 3350 [Miralax] 17 gm PO DAILY #14 packet 12/10/22 Pramoxine HCl [Proctofoam] 15 gm TP BID #15 gm 04/19/23 Allergies Allergy/AdvReac Type Severity Reaction Status Date / Time dicyclomine [From Bentyl] Allergy Unknown Verified 04/19/23 02:35 hydrocodone AdvReac Unknown Verified 04/19/23 02:35 Review of Systems ROS Statement: Those systems with pertinent positive or pertinent negative responses have been documented in the HPI. ROS Other: All systems not noted in ROS Statement are negative. Past Medical History Past Medical History: COPD, Eye Disorder Additional Past Medical History / Comment(s): "CHRONIC BACK PAIN", "LEG SWELLING AND LEG CRAMPS AT TIMES", DIFFIUCLTY SWALLOWING PILLS AND CERTAIN FOODS, BILATERAL MACULAR DEGENERATION, "HEADACHES", CONSTIPAION AND SOMETIMES DIARRHEA ALONG WITH ABDOMINAL CRAMPS. History of Any Multi-Drug Resistant Organisms: None Reported Past Surgical History: Section, Cholecystectomy Additional Past Surgical History / Comment(s): d&c, egd Past Anesthesia/Blood Transfusion Reactions: No Reported Reaction Past Psychological History: No Psychological Hx Reported Smoking Status: Current every day smoker Past Alcohol Use History: None Reported Past Drug Use History: None Reported - Past Family History Mother Additional Family Medical History / Comment(s): GALLSTONES, BURSITIS. MOTHER OF LUNG CANCER AT THE AGE OF 73YRS. SHE WAS A SMOKER. Father Family Medical History: Skin Disorder Additional Family Medical History / Comment(s): FATHER HAS GOUT. HE IS 76YRS OLD. General Exam Limitations: no limitations General appearance: alert, in no apparent distress Head exam: Present: atraumatic, normocephalic, normal inspection Respiratory exam: Present: normal lung sounds bilaterally. Absent: respiratory distress, wheezes, rales, rhonchi, stridor Cardiovascular Exam: Present: regular rate, normal rhythm, normal heart sounds. Absent: systolic murmur, diastolic murmur, rubs, gallop, clicks GI/Abdominal exam: Present: soft, normal bowel sounds. Absent: distended, tenderness, guarding, rebound, rigid Neurological exam: Present: alert, oriented X3, CN II-XII intact Psychiatric exam: Present: normal affect, normal mood Skin exam: Present: warm, dry, intact, normal color. Absent: rash Course Vital Signs 10/06/23 10/07/23 23:03 00:52 Temperature 98.8 F Pulse Rate 60 74 Respiratory 18 18 Rate Blood Pressure 111/74 96/77 O2 Sat by Pulse 100 98 Oximetry Medical Decision Making - Medical Decision Making This is a 57-year-old male who presents to the emergency department for abdominal pain, constipation, and body pain. Was pt. sent in by a medical professional or institution? @ -No Did you speak to anyone other than the patient for history? @ -No Did you review nursing and triage notes? @ -Yes, and I agree, it is accurate with regards to the patient's symptoms. Were old charts reviewed? @ -No Differential Diagnosis? @ -Differential Abdominal Pain Women: Appendicitis, Cholecystitis, diverticulosis, ischemic bowel, pancreatitis, hepatitis, UTI, gastroenteritis, AAA, incarcerated hernia, bowel obstruction, constipation, inflammatory bowel, hepatitis, peptic ulcer disease, splenic infarction, perforated viscus, vulvitis, ovarian torsion, PID, kidney stone, placenta abruption, this is not meant to be an all-inclusive list EKG interpreted by me (3pts min.)? @ -Not obtained X-rays interpreted by me (1pt min.)? @ -Not obtained CT interpreted by me (1pt min.)? @ -Not obtained U/S interpreted by me (1pt. min.)? @ -Not obtained What testing was considered but not performed? (CT, X-rays, U/S, labs)? Why? @ -None What meds were considered but not given? Why? @ -None Did you discuss the management of the patient with other professionals? @ -No Did you reconcile home meds? @ -No Was smoking cessation discussed for >3mins.? @ -I discussed smoking cessation for greater than 3 minutes. The risk of smo tung were discussed with the patient including but not limited to risks of cancer, stroke, coronary artery disease and COPD. Also discussed with patient were multiple methods of quitting smoking. Lastly we discussed the financial cost of smoking. Was critical care preformed (if so, how long)? @ -No Were there social determinants of health that impacted care today? How? (Homelessness, low income, unemployed, alcoholism, drug addiction, transportation, low edu. Level, literacy, decrease access to med. care, alf, rehab)? @ -No Was there de-escalation of care discussed even if they declined? (Discuss DNR or withdrawal of care, Hospice)? @ -No What co-morbidities impacted this encounter? (DM, HTN, Smoking, COPD, CAD, Cancer, CVA, Hep., AIDS, mental health diagnosis, sleep apnea, morbid obesity)? @ -Chronic pain, constipation Was patient admitted / discharged? @ -Discharged. When I went to evaluate the patient, states that she discussed with the EMS provider the possibility of taking probiotics for management of her chronic GI symptoms. She was excited about this possibility and declined any workup at this time. States that she's had multiple rounds of blood work and imaging revealing no explanation for her ongoing symptoms. Because these are chronic in nature, she is requesting a dose of pain medication and discharged home. Morphine was administered and the patient was discharged home in stable condition. She will take her probiotics and follow up with her primary care provider for reevaluation. Undiagnosed new problem with uncertain prognosis? @ -None Drug Therapy requiring intensive monitoring for toxicity (Heparin, Nitro, Insulin, Cardizem)? @ -None Were any procedures done? @ -None Diagnosis/symptom? @ -Constipation, body pain Acute, or Chronic, or Acute on Chronic? @ -Chronic Uncomplicated (without systemic symptoms) or Complicated (systemic symptoms)? @ -Uncomplicated Side effects of treatment? @ -None Exacerbation, Progression, or Severe Exacerbation] @ -Stable Poses a threat to life or bodily function? @ -No Return precautions reviewed in depth, the patient is instructed to return to the emergency department with any new, worsening, or concerning symptoms. Patient verbalized understanding. This case was discussed in detail with the attending ED physician, Dr. Tsai. Presentation, findings, and treatment plan discussed in detail as well. Disposition Clinical Impression: Constipation, Whole body pain, Nicotine dependence Disposition: HOME SELF-CARE Instructions (If sedation given, give patient instructions): Constipation (ED) Additional Instructions: Return to the emergency department with any new, worsening, or concerning symptoms. To help with the yeast overgrowth, try to limit your intake of sugar, white flour, and cheese. Foods that can help manage the yeast overgrowth include garlic, probiotics, pomegranate, coconut oil, and kombucha. Try the probiotics to see if that helps your symptoms. Follow up with your primary care provider in 1-2 days. Is patient prescribed a controlled substance at d/c from ED?: No Referrals: Tanika Sierra MD [Primary Care Provider] - 1-2 days
[2023-10-07] MEDS ORDERED: ACET/COD 300 MG/30 MG STARTER PACK 6 TAB BTL PO STA (00:26)
[2023-10-07 00:55] VITALS: BP 96/77; PULSE 74
== END 2023-10-07 00:53 | disposition home or self-care (01) ==
LOC: EC 23:02
DX: K59.00 Constipation, unspecified (principal); R52 Pain, unspecified; J44.9 Chronic obstructive pulmonary disease, unspecified; F17.200 Nicotine dependence, unspecified, uncomplicated; Z88.5 Allergy status to narcotic agent; Z88.8 Allergy status to other drugs, medicaments and biological substances; Z90.49 Acquired absence of other specified parts of digestive tract
CPT/HCPCS: 99284; 96374; J2270

== ENCOUNTER 2023-10-21 00:12 | Emergency (ER) | payer OTHER ==
[2023-10-21] MEDS ORDERED: SODIUM CHLORIDE 0.9% 1,000 ML IV STA (00:22)
[2023-10-21] MEDS ORDERED: methylPREDNISolone SOD SUCCI 125 MG/2 ML VIAL IV STA (00:22)
[2023-10-21] MEDS ORDERED: MORPHINE SULFATE 4 MG/ML SYRINGE IVP STA (00:22)
[2023-10-21] MEDS ORDERED: KETOROLAC 15 MG/ML 1 ML VIAL IVP STA (00:22)
--- NOTE | 2023-10-21 00:38 | ED ---
URI HPI - General Chief Complaint: Upper Respiratory Infection Stated Complaint: Covid+ Time Seen by Provider: 10/21/23 00:16 Source: patient, RN notes reviewed Mode of arrival: EMS Limitations: no limitations - History of Present Illness Initial Comments: This is a 57-year-old female who presents to the emergency department for body aches, coughing, and a sore throat. States that her whole family tested positive for Covid, and she believes that she has it too. This evening she started to develop severe body aches, prompting her to call EMS. She rode in the ambulance with her daughter, who is also being evaluated for body aches from COVID. She has a sore throat and associated coughing. Denies any chest pain or shortness of breath. Denies any fevers or chills. MD Complaint: cough, sore throat, nasal congestion - Related Data Previous Rx's Medication Instructions Recorded Acetaminophen Tab [Tylenol Tab] 500 mg PO Q6H PRN 5 Days #20 tablet 01/08/20 Ibuprofen [Motrin] 600 mg PO Q8HR PRN #20 tab 12/10/22 Nicotine 21Mg/24Hr Patch [Habitrol] 1 each TRANSDERM DAILY #14 patch 12/10/22 polyethylene glycoL 3350 [Miralax] 17 gm PO DAILY #14 packet 12/10/22 Pramoxine HCl [Proctofoam] 15 gm TP BID #15 gm 04/19/23 Ketorolac [Toradol] 10 mg PO Q6HR PRN #15 tab 10/21/23 Molnupiravir [Lagevrio (Eua)] 800 mg PO BID 5 Days #40 cap 10/21/23 Promethazine/Dextromethorphan 5 ml PO Q4-6H PRN #473 ml 10/21/23 [Promethazine-Dm Syrup] Allergies Allergy/AdvReac Type Severity Reaction Status Date / Time dicyclomine [From Bentyl] Allergy Unknown Verified 04/19/23 02:35 hydrocodone AdvReac Unknown Verified 04/19/23 02:35 Review of Systems ROS Statement: Those systems with pertinent positive or pertinent negative responses have been documented in the HPI. ROS Other: All systems not noted in ROS Statement are negative. Past Medical History Past Medical History: COPD, Eye Disorder Additional Past Medical History / Comment(s): "CHRONIC BACK PAIN", "LEG SWELLING AND LEG CRAMPS AT TIMES", DIFFIUCLTY SWALLOWING PILLS AND CERTAIN FOODS, BILATERAL MACULAR DEGENERATION, "HEADACHES", CONSTIPAION AND SOMETIMES DIARRHEA ALONG WITH ABDOMINAL CRAMPS. History of Any Multi-Drug Resistant Organisms: None Reported Past Surgical History: Section, Cholecystectomy Additional Past Surgical History / Comment(s): d&c, egd Past Anesthesia/Blood Transfusion Reactions: No Reported Reaction Past Psychological History: No Psychological Hx Reported Smoking Status: Current every day smoker Past Alcohol Use History: None Reported Past Drug Use History: None Reported - Past Family History Mother Additional Family Medical History / Comment(s): GALLSTONES, BURSITIS. MOTHER OF LUNG CANCER AT THE AGE OF 73YRS. SHE WAS A SMOKER. Father Family Medical History: Skin Disorder Additional Family Medical History / Comment(s): FATHER HAS GOUT. HE IS 76YRS OLD. General Exam Limitations: no limitations General appearance: alert, in no apparent distress Head exam: Present: atraumatic, normocephalic, normal inspection Respiratory exam: Present: normal lung sounds bilaterally. Absent: respiratory distress, wheezes, rales, rhonchi, stridor Cardiovascular Exam: Present: regular rate, normal rhythm, normal heart sounds. Absent: systolic murmur, diastolic murmur, rubs, gallop, clicks Neurological exam: Present: alert, oriented X3, CN II-XII intact Psychiatric exam: Present: normal affect, normal mood Skin exam: Present: warm, dry, intact, normal color. Absent: rash Course Vital Signs 10/21/23 10/21/23 00:57 02:46 Pulse Rate 93 90 Respiratory 18 18 Rate Blood Pressure 111/73 116/76 O2 Sat by Pulse 99 99 Oximetry Medical Decision Making - Medical Decision Making This is a 57-year-old female who presents to the emergency department for body aches, coughing, and congestion. Was pt. sent in by a medical professional or institution? @ -No Did you speak to anyone other than the patient for history? @ -No Did you review nursing and triage notes? @ -Yes, and I agree, it is accurate with regards to the patient's symptoms. Were old charts reviewed? @ -No Differential Diagnosis? @ -Differential Cough: Influenza, Covid, RSV, croup, allergic rhinitis, GERD, pneumonia, bronchitis, COPD, viral pharyngitis, streptococcal pharyngitis, this is not meant to be an all-inclusive list. EKG interpreted by me (3pts min.)? @ -Not obtained X-rays interpreted by me (1pt min.)? @ -Not obtained CT interpreted by me (1pt min.)? @ -Not obtained U/S interpreted by me (1pt. min.)? @ -Not obtained What testing was considered but not performed? (CT, X-rays, U/S, labs)? Why? @ -None What meds were considered but not given? Why? @ -None Did you discuss the management of the patient with other professionals? @ -No Did you reconcile home meds? @ -No Was smoking cessation discussed for >3mins.? @ -I discussed smoking cessation for greater than 3 minutes. The risk of smoking were discussed with the patient including but not limited to risks of cancer, stroke, coronary artery disease and COPD. Also discussed with patient were multiple methods of quitting smoking. Lastly we discussed the financial cost of smoking. Was critical care preformed (if so, how long)? @ -No Were there social determinants of health that impacted care today? How? (Homelessness, low income, unemployed, alcoholism, drug addiction, transportation, low edu. Level, literacy, decrease access to med. care, shelter, rehab)? @ -No Was there de-escalation of care discussed even if they declined? (Discuss DNR or withdrawal of care, Hospice)? @ -No What co-morbidities impacted this encounter? (DM, HTN, Smoking, COPD, CAD, Cancer, CVA, Hep., AIDS, mental health diagnosis, sleep apnea, morbid obesity)? @ -COPD, smoking Was patient admitted / discharged? @ -Discharged. Patient positive for COVID-19. Her symptoms were well controlled in the emergency department. She does wish to proceed with antiviral therapy. Rx for Molnupiravir provided with dosing instructions reviewed. She was also given prescriptions for Toradol and promethazine DM cough syrup for additional symptomatic management. She is instructed to quarantine for 5 days and practice extra precautions for an additional 5 days, including always wearing a mask around others and avoiding travel. Patient otherwise discharged home in stable condition. Undiagnosed new problem with uncertain prognosis? @ -None Drug Therapy requiring intensive monitoring for toxicity (Heparin, Nitro, Insulin, Cardizem)? @ -None Were any procedures done? @ -None Diagnosis/symptom? @ -COVID-19 Acute, or Chronic, or Acute on Chronic? @ -Acute Uncomplicated (without systemic symptoms) or Complicated (systemic symptoms)? @ -Uncomplicated Side effects of treatment? @ -None Exacerbation, Progression, or Severe Exacerbation] @ -Not applicable Poses a threat to life or bodily function? @ -No Return precautions reviewed in depth, the patient is instructed to return to the emergency department with any new, worsening, or concerning symptoms. Patient verbalized understanding. This case was discussed in detail with the attending ED physician, Dr. Jo. Presentation, findings, and treatment plan discussed in detail as well. - Lab Data Lab Results 10/21/23 Range/Units 01:24 Influenza Type A (PCR) Not Detected (Not Detectd) Influenza Type B (PCR) Not Detected (Not Detectd) RSV (PCR) Not Detected (Not Detectd) SARS-CoV-2 (PCR) Detected A (Not Detectd) Disposition Clinical Impression: COVID-19, Nicotine dependence Disposition: HOME SELF-CARE Instructions (If sedation given, give patient instructions): COVID-19 (Coronavirus Disease 2019) (ED), How to Recover from COVID-19 at Home (ED) Additional Instructions: Return to the emergency department with any new, worsening, or concerning symptoms. Take the Molnupiravir as prescribed for 5 days. Take the Toradol with Tylenol as needed for pain relief. If you choose to take the Toradol, do not take any other anti-inflammatories such as ibuprofen, take one or the other. You can take the promethazine DM cough syrup every 4-6 hours as needed. Make sure that you remain well-hydrated. You will also need to quarantine for 5 days. Prescriptions: Molnupiravir [Lagevrio (Eua)] 800 mg PO BID 5 Days #40 cap Promethazine/Dextromethorphan [Promethazine-Dm Syrup] 5 ml PO Q4-6H PRN #473 ml PRN Reason: Cough Ketorolac [Toradol] 10 mg PO Q6HR PRN #15 tab PRN Reason: Pain Is patient prescribed a controlled substance at d/c from ED?: No Referrals: None,Stated [Primary Care Provider] - 1-2 days
[2023-10-21 01:08] VITALS: RESP 18
[2023-10-21] MEDS ORDERED: ACET/COD 300 MG/30 MG STARTER PACK 6 TAB BTL PO STA (01:57)
[2023-10-21] MEDS ORDERED: IBUPROFEN 600 MG STARTER PACK 4 TAB BTL PO STA (02:16)
[2023-10-21 03:02] VITALS: BP 116/76; PULSE 90
== END 2023-10-21 02:48 | disposition home or self-care (01) ==
LOC: EC 00:12
DX: U07.1 COVID-19 (principal); F17.200 Nicotine dependence, unspecified, uncomplicated; J44.9 Chronic obstructive pulmonary disease, unspecified; Z88.5 Allergy status to narcotic agent
CPT/HCPCS: 87636; 99284; 96374; 96375 ×2; 96361; 99406; J2270; J2930; J1885

== ENCOUNTER 2023-10-25 15:32 | Emergency (ER) | payer OTHER ==
[2023-10-25] MEDS ORDERED: KETOROLAC 15 MG/ML 1 ML VIAL IVP STA (17:07)
[2023-10-25] MEDS ORDERED: SODIUM CHLORIDE 0.9% 1,000 ML IV STA (17:07)
--- NOTE | 2023-10-25 17:12 | ED ---
General Adult HPI - General Chief complaint: Upper Respiratory Infection Stated complaint: body weakness dizzy Time Seen by Provider: 10/25/23 16:08 Source: patient Mode of arrival: ambulatory Limitations: no limitations - History of Present Illness Initial comments: 57-year-old female presents to the ED with a chief complaint of cough. Patient seen here in the week after recent diagnosis for COVID. Since then, patient reports continued symptoms of Covid including but not limited to congestion, sore throat, myalgias, generalized weakness, and Decreased appetite. Liver, patient reports some worsening of cough productive presentation to the ED for further evaluation. Patient reports she lost like more pain medication as she said last time she was here she was given pain medication that helped her go to sleep. No other complaints. - Related Data Previous Rx's Medication Instructions Recorded Acetaminophen Tab [Tylenol Tab] 500 mg PO Q6H PRN 5 Days #20 tablet 01/08/20 Ibuprofen [Motrin] 600 mg PO Q8HR PRN #20 tab 12/10/22 Nicotine 21Mg/24Hr Patch [Habitrol] 1 each TRANSDERM DAILY #14 patch 12/10/22 polyethylene glycoL 3350 [Miralax] 17 gm PO DAILY #14 packet 12/10/22 Pramoxine HCl [Proctofoam] 15 gm TP BID #15 gm 04/19/23 Ketorolac [Toradol] 10 mg PO Q6HR PRN #15 tab 10/21/23 Molnupiravir [Lagevrio (Eua)] 800 mg PO BID 5 Days #40 cap 10/21/23 Promethazine/Dextromethorphan 5 ml PO Q4-6H PRN #473 ml 10/21/23 [Promethazine-Dm Syrup] Allergies Allergy/AdvReac Type Severity Reaction Status Date / Time dicyclomine [From Bentyl] Allergy Unknown Verified 10/25/23 15:56 hydrocodone AdvReac Unknown Verified 10/25/23 15:56 Review of Systems ROS Statement: Those systems with pertinent positive or pertinent negative responses have been documented in the HPI. ROS Other: All systems not noted in ROS Statement are negative. Past Medical History Past Medical History: COPD, Eye Disorder Additional Past Medical History / Comment(s): "CHRONIC BACK PAIN", "LEG SWELLING AND LEG CRAMPS AT TIMES", DIFFIUCLTY SWALLOWING PILLS AND CERTAIN FOODS, BILATERAL MACULAR DEGENERATION, "HEADACHES", CONSTIPAION AND SOMETIMES DIARRHEA ALONG WITH ABDOMINAL CRAMPS. History of Any Multi-Drug Resistant Organisms: None Reported Past Surgical History: Section, Cholecystectomy Additional Past Surgical History / Comment(s): d&c, egd Past Anesthesia/Blood Transfusion Reactions: No Reported Reaction Past Psychological History: No Psychological Hx Reported Smoking Status: Current every day smoker Past Alcohol Use History: None Reported Past Drug Use History: None Reported - Past Family History Mother Additional Family Medical History / Comment(s): GALLSTONES, BURSITIS. MOTHER OF LUNG CANCER AT THE AGE OF 73YRS. SHE WAS A SMOKER. Father Family Medical History: Skin Disorder Additional Family Medical History / Comment(s): FATHER HAS GOUT. HE IS 76YRS OLD. General Exam Limitations: no limitations General appearance: alert, in no apparent distress Eye exam: Present: normal appearance ENT exam: Present: normal exam Respiratory exam: Present: normal lung sounds bilaterally Cardiovascular Exam: Present: regular rate, normal rhythm GI/Abdominal exam: Present: soft Neurological exam: Present: alert, oriented X3 Course Vital Signs 10/25/23 10/25/23 15:52 19:18 Temperature 98.1 F 98.2 F Pulse Rate 106 H 62 Respiratory 20 18 Rate Blood Pressure 99/70 102/68 O2 Sat by Pulse 99 100 Oximetry Medical Decision Making - Medical Decision Making Was pt. sent in by a medical professional or institution ([facility], REGISTERED NURSE BONE MARROW TRANSPLANT, urgent care, hospital, or jail...) When possible be specific @ -No Did you speak to anyone other than the patient for history (EMS, parent, family, police, friend...)? What history was obtained from this source @ -No Did you review nursing and triage notes (agree or disagree)? Why? @ -I reviewed and agree with nursing and triage notes Were old charts reviewed (outside hosp., previous admission, EMS record, old EKG, old radiological studies, urgent care reports/EKG's, jail records)? Report findings @ -Prior note reviewed. Other details please see HPI. Differential Diagnosis (chest pain, altered mental status, abdominal pain women, abdominal pain men, vaginal bleeding, weakness, fever, dyspnea, syncope, headache, dizziness, GI bleed, back pain, seizure, CVA, palpatations, mental health, musculoskeletal)? @ -Differential Dyspnea: Coronary syndrome, arrhythmia, tamponade, asthma, COPD, pulmonary embolism, pneumonia, pneumothorax, pulmonary effusion, anaphylaxis, diabetic ketoacidosis, flailed chest, pulmonary contusion, diaphragmatic rupture, anemia, neuromuscular, this is not meant to be an all-inclusive list. EKG interpreted by me (3pts min.). @ -As above X-rays interpreted by me (1pt min.). @ -Chest x-ray interpreted by me showing no evidence of pneumonia or other acute finding. Does have changes consistent with COPD. CT interpreted by me (1pt min.). @ -None done U/S interpreted by me (1pt. min.). @ -None done What testing was considered but not performed or refused? (CT, X-rays, U/S, labs)? Why? @ -None What meds were considered but not given or refused? Why? @ -None Did you discuss the management of the patient with other professionals (professionals i.e. , PA, REGISTERED NURSE BONE MARROW TRANSPLANT, lab, RT, psych nurse, social media campaign manager, telephone sterilizer, teacher, court security officer, vocational case manager)? Give summary @ -No Was smoking cessation discussed for >3mins.? @ -No Was critical care preformed (if so, how long)? @ -No Were there social determinants of health that impacted care today? How? (Homelessness, low income, unemployed, alcoholism, drug addiction, transportation, low edu. Level, literacy, decrease access to med. care, shelter, rehab)? @ -No Was there de-escalation of care discussed even if they declined (Discuss DNR or withdrawal of care, Hospice)? DNR status @ -No What co-morbidities impacted this encounter? (DM, HTN, Smoking, COPD, CAD, Cancer, CVA, ARF, Chemo, Hep., AIDS, mental health diagnosis, sleep apnea, morbid obesity)? @ -None Was patient admitted / discharged? Hospital course, mention meds given and route, prescriptions, significant lab abnormalities, going to OR and other pertinent info. @ -Discharge 57-year-old female presenting to the ED after recent diagnosis with COVID continued URI symptoms and complaints of myalgias. Reports due to the pain has had some trouble sleeping. At prior visit was given a Tylenol 3 starter pack and reports that this helped with her pain and insomnia greatly and would like to have some more. Patient received Tylenol and Zofran in the ED. Patient not prescribed any additional Tylenol 3. At this time vital signs stable afebrile. Advised to continue medications prescribed at prior discharge. Discussed return precautions with patient who verbalizes agreement. Undiagnosed new problem with uncertain prognosis? @ -No Drug Therapy requiring intensive monitoring for toxicity (Heparin, Nitro, Insulin, Cardizem)? @ -No Were any procedures done? @ -No Diagnosis/symptom? @ -COVID Acute, or Chronic, or Acute on Chronic? @ -Acute Uncomplicated (without systemic symptoms) or Complicated (systemic symptoms)? @ -Uncomplicated Side effects of treatment? @ -No Exacerbation, Progression, or Severe Exacerbation? @ -No Poses a threat to life or bodily function? How? (Chest pain, [place], [place], pneumonia, PE, COPD, DKA, ARF, appy, cholecystitis, CVA, Diverticulitis, Homicidal, Suicidal, threat to staff... and all critical care pts) @ -No Disposition Clinical Impression: COVID Disposition: HOME SELF-CARE Condition: Good Additional Instructions: Please return to the Emergency Department if symptoms worsen or any other concerns. Is patient prescribed a controlled substance at d/c from ED?: No Referrals: Avril Guzman DO [Primary Care Provider] - 1-2 days Time of Disposition: 19:20
[2023-10-25 19:31] VITALS: BP 102/68; PULSE 62; RESP 18; TEMP 98.2
--- NOTE | 2023-10-25 21:05 | XR ---
EXAMINATION TYPE: XR chest 2V DATE OF EXAM: 10/25/2023 COMPARISON: 12/24/2018 HISTORY: 57-year-old female dizzy, weakness, shortness of breath, rule out pneumonia TECHNIQUE: PA and lateral views FINDINGS: Heart normal size. Aorta and pulmonary vasculature are within normal limits. Heart normal size. Aorta and pulmonary vasculature within normal limits. Hyperinflation with interstitial prominence. Promine nt biapical pleural parenchymal scarring. There is a new edge projecting at the lateral right apex me asuring 6 mm to the apical margin. Focal lower lung densities related to overlying soft tissue. Other jimenez, no consolidation or pleural effusion seen. IMPRESSION: COPD with advanced emphysema. Unable to exclude a trace 6 mm right apical pneumothorax. Findings called to PA Cabatu at 9pm. Otherwise, no acute process seen.
== END 2023-10-25 19:40 | disposition home or self-care (01) ==
LOC: EC 15:32
DX: U07.1 COVID-19 (principal); J44.9 Chronic obstructive pulmonary disease, unspecified; F17.200 Nicotine dependence, unspecified, uncomplicated; Z88.5 Allergy status to narcotic agent; Z88.8 Allergy status to other drugs, medicaments and biological substances
CPT/HCPCS: 71046; 96374; 96361 ×2; 99284; J1885

== ENCOUNTER 2023-11-19 14:16 | Inpatient (IN) | payer OTHER ==
[2023-11-19] MEDS ORDERED: MORPHINE SULFATE 4 MG/ML SYRINGE IM STA (14:51)
--- NOTE | 2023-11-19 14:51 | ED ---
Fall HPI - General Chief Complaint: Fall Stated Complaint: fall Time Seen by Provider: 11/19/23 14:28 Source: EMS Mode of arrival: EMS - History of Present Illness Initial Comments: Patient is a 57-year-old female history of chronic, but otherwise healthy presents emergency room accompanied by a mix house operator/family member for right hip and pelvic pain. Patient went to turn off the fire alarm and fell off the rocking chair onto her right side. She denies hitting her head or losing consciousness. She has not been able to ambulate or move since falling yesterday. She is a smoker. - Related Data Previous Rx's Medication Instructions Recorded Acetaminophen Tab [Tylenol Tab] 500 mg PO Q6H PRN 5 Days #20 tablet 01/08/20 Ibuprofen [Motrin] 600 mg PO Q8HR PRN #20 tab 12/10/22 Nicotine 21Mg/24Hr Patch [Habitrol] 1 each TRANSDERM DAILY #14 patch 12/10/22 polyethylene glycoL 3350 [Miralax] 17 gm PO DAILY #14 packet 12/10/22 Pramoxine HCl [Proctofoam] 15 gm TP BID #15 gm 04/19/23 Ketorolac [Toradol] 10 mg PO Q6HR PRN #15 tab 10/21/23 Molnupiravir [Lagevrio (Eua)] 800 mg PO BID 5 Days #40 cap 10/21/23 Promethazine/Dextromethorphan 5 ml PO Q4-6H PRN #473 ml 10/21/23 [Promethazine-Dm Syrup] Allergies Allergy/AdvReac Type Severity Reaction Status Date / Time dicyclomine [From Bentyl] Allergy Unknown Verified 11/19/23 14:31 hydrocodone AdvReac Unknown Verified 11/19/23 14:31 Review of Systems ROS Statement: Those systems with pertinent positive or pertinent negative responses have been documented in the HPI. ROS Other: All systems not noted in ROS Statement are negative. Past Medical History Past Medical History: COPD, Eye Disorder Additional Past Medical History / Comment(s): "CHRONIC BACK PAIN", "LEG SWELLING AND LEG CRAMPS AT TIMES", DIFFIUCLTY SWALLOWING PILLS AND CERTAIN FOODS, BILATERAL MACULAR DEGENERATION, "HEADACHES", CONSTIPAION AND SOMETIMES DIARRHEA ALONG WITH ABDOMINAL CRAMPS. History of Any Multi-Drug Resistant Organisms: None Reported Past Surgical History: Section, Cholecystectomy Additional Past Surgical History / Comment(s): d&c, egd Past Anesthesia/Blood Transfusion Reactions: No Reported Reaction Past Psychological History: No Psychological Hx Reported Smoking Status: Current every day smoker Past Alcohol Use History: None Reported Past Drug Use History: None Reported - Past Family History Mother Additional Family Medical History / Comment(s): GALLSTONES, BURSITIS. MOTHER OF LUNG CANCER AT THE AGE OF 73YRS. SHE WAS A SMOKER. Father Family Medical History: Skin Disorder Additional Family Medical History / Comment(s): FATHER HAS GOUT. HE IS 76YRS OLD. General Exam Limitations: no limitations General appearance: alert, in no apparent distress Head exam: Present: atraumatic Eye exam: Present: PERRL ENT exam: Present: normal exam Neck exam: Present: full ROM Respiratory exam: Present: normal lung sounds bilaterally Cardiovascular Exam: Present: regular rate Extremities exam: Present: other (Pain over the right proximal femur, right hip and right pelvis with no obvious deformity, no shortening of the leg. Palpable distal pulses. No erythema ecchymosis or warmth. No signs of a compartment syndrome.). Absent: full ROM Back exam: Present: full ROM Neurological exam: Present: alert, oriented X3, CN II-XII intact Psychiatric exam: Present: normal affect, normal mood Skin exam: Present: warm, dry Course Vital Signs 11/19/23 11/19/23 14:25 19:02 Temperature 98.5 F 98.0 F Pulse Rate 81 76 Respiratory 18 18 Rate Blood Pressure 106/71 106/70 O2 Sat by Pulse 100 99 Oximetry - Reevaluation(s) Reevaluation #1: The patient is well-appearing and emergency room. No obvious deformity. Patient was given morphine emergency room for pain control. I discussed imaging results which show a questionable fracture on the x-rays. CT was ordered which confirm a subcapital fracture. I discussed admission and pending surgery with patient and family member at the bedside. I spoke with Dr. Dr. Bowser regarding admission for the hip fracture. She is to remain nothing by mouth after 12. 11/19/23 19:09 Medical Decision Making - Medical Decision Making Was pt. sent in by a medical professional or institution (, PA, PLATE PUT IN WORKER, urgent care, hospital, or fpc...) When possible be specific @ -[No] Did you speak to anyone other than the patient for history (EMS, parent, family, police, friend...)? What history was obtained from this source @ -Family at bedside Did you review nursing and triage notes (agree or disagree)? Why? @ -[I reviewed and agree with nursing and triage notes] Were old charts reviewed (outside hosp., previous admission, EMS record, old EKG, old radiological studies, urgent care reports/EKG's, fpc records)? Report findings @ -[No old charts were reviewed] Differential Diagnosis (chest pain, altered mental status, abdominal pain women, abdominal pain men, vaginal bleeding, weakness, fever, dyspnea, syncope, headache, dizziness, GI bleed, back pain, seizure, CVA, palpatations, mental health, musculoskeletal)? @ -Right femur fracture, right pelvis fracture, right hip strain EKG interpreted by me (3pts min.). @ -[As above] X-rays interpreted by me (1pt min.). @ -X-ray shows right subcapital fracture CT interpreted by me (1pt min.). @ -Firms right subcapital fracture U/S interpreted by me (1pt. min.). @ -[None done] What testing was considered but not performed or refused? (CT, X-rays, U/S, labs)? Why? @ -[None] What meds were considered but not given or refused? Why? @ -[None] Did you discuss the management of the patient with other professionals (professionals i.e. , PA, PLATE PUT IN WORKER, lab, RT, psych nurse, clinical social work aide, handkerchief folder, teacher, personnel officer, case manager specialist)? Give summary @ -[I discussed management of this patient including the subcapital fracture with case manager specialist Dr. Bowser. Was smoking cessation discussed for >3mins.? @ -[No] Was critical care preformed (if so, how long)? @ -[No] Were there social determinants of health that impacted care today? How? (Homelessness, low income, unemployed, alcoholism, drug addiction, transportation, low edu. Level, literacy, decrease access to med. care, assisted, rehab)? @ -[No] Was there de-escalation of care discussed even if they declined (Discuss DNR or withdrawal of care, Hospice)? DNR status @ -[No] What co-morbidities impacted this encounter? (DM, HTN, Smoking, COPD, CAD, Cancer, CVA, ARF, Chemo, Hep., AIDS, mental health diagnosis, sleep apnea, morbid obesity)? @ -[Smoking Was patient admitted / discharged? Hospital course, mention meds given and route, prescriptions, significant lab abnormalities, going to OR and other pertinent info. @ -Patient will be admitted to the hospital under the care of case manager specialist Dr. Bowser with a consultation to medicine. I discussed admission pending surgery with the patient. Undiagnosed new problem with uncertain prognosis? @ -[No] Drug Therapy requiring intensive monitoring for toxicity (Heparin, Nitro, Insulin, Cardizem)? @ -[No] Were any procedures done? @ -[No] Diagnosis/symptom? @ -Fracture of the right subcapital, fall, right hip pain Acute, or Chronic, or Acute on Chronic? @ -Acute Uncomplicated (without systemic symptoms) or Complicated (systemic symptoms)? @ -[default] Side effects of treatment? @ -[No] Exacerbation, Progression, or Severe Exacerbation? @ -[No] Poses a threat to life or bodily function? How? (Chest pain, USA, SC, pneumonia, PE, COPD, DKA, ARF, appy, cholecystitis, CVA, Diverticulitis, Homicidal, Suicidal, threat to staff... and all critical care pts) @ -[Yes - Radiology Data Radiology results: report reviewed, image reviewed Disposition Clinical Impression: Subcapital fracture of hip, Fall Disposition: ADMITTED IP TO THIS [facility] Condition: Good Is patient prescribed a controlled substance at d/c from ED?: No Referrals: Avril Guzman DO [Primary Care Provider] - 1-2 days Decision to Admit Reason: Admit from EC Decision Date: 11/19/23 Decision Time: 19:12
--- NOTE | 2023-11-19 16:10 | XR ---
EXAMINATION TYPE: XR Hip RT and AP Pelvis, XR femur RT DATE OF EXAM: 11/19/2023 COMPARISON: NONE HISTORY: Fall, pain TECHNIQUE: A single AP view of the pelvis is obtained. Two views of the right hip and femur are obtai vinny. FINDINGS: Osseous structures are demineralized which lowers radiographic sensitivity. Evaluation als o suboptimal due to lucency from overlying bowel gas. There is probable acute impacted subcapital fra cture of the right proximal femur seen best on frog-leg view with cortical disruption. No additional acute displaced fracture in the remainder of the right femur. No hip joint dislocation. Pubic symphys is is intact. IMPRESSION: There is a suspected acute impacted subcapital fracture of the right proximal femur.
--- NOTE | 2023-11-19 18:33 | CT ---
EXAMINATION TYPE: CT hip RT wo con CT DLP: 232.8 mGycm, Automated exposure control for dose reduction was used. DATE OF EXAM: 11/19/2023 5:31 PM COMPARISON: . Extremity radiograph same day. CLINICAL INDICATION:Female, 57 years old with history of fall, evaluate for subcapital fracture; PHH, fall, evaluate for subcapital fracture TECHNIQUE: Axial images were obtained of the CT hip RT wo con, Additional coronal and sagittal reform atted images and soft tissue and bone window were obtained for review. 3-D reconstruction was created on a separate workstation. Contrast used: mL of , (None if empty) Oral contrast used: (None if empty) FINDINGS: There is a valgus impacted right subcapital femoral neck fracture. The remainder of the oss eous structures appear intact. There is a small joint effusion. The intra-abdominal structures are gr ossly unremarkable. IMPRESSION: Valgus impacted right subcapital femoral neck fracture.
[2023-11-19] MEDS ORDERED: NALOXONE 0.4 MG/ML 1 ML VIAL IV PRN (18:53)
[2023-11-19 19:35] LABS: Basophils % (A) 1 %; Eosinophils # (A) 0.1 k/uL (0-0.7); Eosinophils % (A) 2 %; HCT 33.1 % (34.0-46.0); Lymphocytes # (A) 1.6 k/uL (1.0-4.8); Lymphocytes % (A) 24 %; MCH 31.4 pg (25.0-35.0); MCHC 33.3 g/dL (31.0-37.0); MCV 94.3 fL (80.0-100.0); Mean Platelet Volume 8.2; Monocytes # (A) 0.3 k/uL (0-1.0); Monocytes % (A) 4 %; Neutrophils # (A) 4.6 k/uL (1.3-7.7); Neutrophils % (A) 69 %; Platelet Count 206 k/uL (150-450); RBC 3.51 m/uL (3.80-5.40); RDW 13.4 % (11.5-15.5); WBC 6.6 k/uL (3.8-10.6)
[2023-11-19 19:49] LABS: ALT 11 U/L (4-34); African American GFR (CKD) >90 (>60 ml/min/1.73 sqM); Anion Gap 7 mmol/L; Blood Urea Nitrogen 10 mg/dL (7-17); Calcium 8.5 mg/dL (8.4-10.2); Carbon Dioxide 25 mmol/L (22-30); Chloride 103 mmol/L (98-107); Glucose 99 mg/dL (74-99); Non-African American GFR(CKD) >90 (>60 ml/min/1.73 sqM); Sodium 135 mmol/L (137-145)
[2023-11-19 19:53] LABS: Prothrombin Time 11.4 sec (10.0-12.5)
[2023-11-19 20:00] LABS: AST 27 U/L (14-36); Albumin 3.5 g/dL (3.5-5.0); Alkaline Phosphatase 88 U/L (38-126); Potassium 4.9 mmol/L (3.5-5.1); Total Protein 6.6 g/dL (6.3-8.2)
[2023-11-19] MEDS: MORPHINE SULFATE 4 MG/ML SYRINGE IVP SCH ×2 (21:58→21:59)
[2023-11-19] MEDS: SODIUM CHLORIDE 0.9% 1,000 ML IV SCH (21:59)
[2023-11-20] MEDS: SODIUM CHLORIDE 0.9% 1,000 ML IV SCH ×3 (03:15→16:17)
[2023-11-20] MEDS: MORPHINE SULFATE 4 MG/ML SYRINGE IVP SCH ×6 (03:16→23:16)
--- NOTE | 2023-11-20 06:45 | P.HPOR ---
History of Present Illness H&P Date: 11/20/23 This 57-year-old female who is admitted for right hip fracture after a fall at home on 11/18/2023. Patient states that she fell off of a chair trying to shut off a fire alarm. Patient states that she had to be taken to the emergency room via EMS because she was unable to walk after her fall. X-rays and a CT scan done in the emergency room revealed right subcapital femur fracture. Patient's past medical history is significant for COPD and chronic back pain. Patient denies any fever/chills, numbness, weakness, tingling, abdominal pain, shortness of breath or chest pain. Review of Systems See HPI. Past Medical History Past Medical History: COPD, Eye Disorder Additional Past Medical History / Comment(s): "CHRONIC BACK PAIN", "LEG SWELLING AND LEG CRAMPS AT TIMES", DIFFIUCLTY SWALLOWING PILLS AND CERTAIN FOODS, BILATERAL MACULAR DEGENERATION, "HEADACHES", CONSTIPAION AND SOMETIMES DIARRHEA ALONG WITH ABDOMINAL CRAMPS. History of Any Multi-Drug Resistant Organisms: None Reported Past Surgical History: Section, Cholecystectomy Additional Past Surgical History / Comment(s): d&c, egd Past Anesthesia/Blood Transfusion Reactions: No Reported Reaction Past Psychological History: No Psychological Hx Reported Additional Psychological History / Comment(s): patient does not drive. Smoking Status: Current every day smoker Past Alcohol Use History: None Reported Additional Past Alcohol Use History / Comment(s): STARTED SMOKING AT AGE 16, SMOKES 1-2 PPD. Past Drug Use History: None Reported - Past Family History Mother Additional Family Medical History / Comment(s): GALLSTONES, BURSITIS. MOTHER OF LUNG CANCER AT THE AGE OF 73YRS. SHE WAS A SMOKER. Father Family Medical History: Skin Disorder Additional Family Medical History / Comment(s): FATHER HAS GOUT. HE IS 76YRS OLD. Medications and Allergies Home Medications Medication Instructions Recorded Confirmed Type Ketorolac [Toradol] 10 mg PO Q6HR PRN #15 tab 10/21/23 11/19/23 Rx Acetaminophen-Codeine 300-30mg 1 - 2 tab PO Q4-6H PRN 11/19/23 11/19/23 History [Tylenol w/codeine #3] Ondansetron Odt [Zofran Odt] 4 mg PO Q6H PRN 11/19/23 11/19/23 History Allergies Allergy/AdvReac Type Severity Reaction Status Date / Time dicyclomine [From Bentyl] AdvReac "Didn't Verified 11/19/23 19:55 work" hydrocodone AdvReac "Didn't Verified 11/19/23 19:55 work" ibuprofen [From Motrin] AdvReac Stomach Verified 11/19/23 19:55 upset, vomiting Physical Examination On exam patient is resting comfortably in bed in no acute distress. Patient is alert and oriented 3. Right lower extremity: Shortened and externally rotated. There is minimal swelling. Calf is soft and nontender to palpation. Sensation intact. Patient has full range of motion of the right foot and ankle. Right lower extremity is warm and well perfused. Neurovascular status and circulatory status are intact to bilateral lower extremities. Head is normocephalic/atraumatic. Patient moves the head and neck freely without pain. Exam of bilateral upper extremities are within normal limits. There is no pain with motion of the left lower extremity. Left calf is soft and nontender to palpation. Left lower extremity is warm and well perfused. Results X-rays of the right hip and pelvis along with a CT of the right hip are reviewed and reveal a subcapital fracture of the right femur. - Labs Labs: Abnormal Lab Results - Last 24 Hours (Table) 11/19/23 11/19/23 Range/Units 19:07 19:07 RBC 3.51 L (3.80-5.40) m/uL Hgb 11.0 L (11.4-16.0) gm/dL Hct 33.1 L (34.0-46.0) % Sodium 135 L (137-145) mmol/L H & H 11/19/23 Range/Units 19:07 Hgb 11.0 L (11.4-16.0) gm/dL Hct 33.1 L (34.0-46.0) % Coagulation 11/19/23 Range/Units 19:07 INR 1.0 (<1.2) Result Diagrams: 11/19/23 19:07 11/19/23 19:07 Assessment and Plan (1) Fall Current Visit: Yes Status: Acute Code(s): W19.XXXA - UNSPECIFIED FALL, INITIAL ENCOUNTER SNOMED Code(s): 3383335 (2) Subcapital fracture of hip Current Visit: Yes Status: Acute Code(s): S72.019A - UNSP INTRACAPSULAR FRACTURE OF UNSP FEMUR, INIT FOR CLOS FX SNOMED Code(s): 957694230 Plan: 1. NPO and bed rest. 2. Appreciate input from internal medicine. 3. Continue pain control. 4. Planning for right hip hemiarthroplasty with direct anterior approach later today pending medical clearance and patient consent.
[2023-11-20 15:33] VITALS: BMI 15.0
[2023-11-20 19:53] LABS: Glucose,Whole Blood 153 mg/dL (70-110)
[2023-11-21] MEDS: MORPHINE SULFATE 4 MG/ML SYRINGE IVP SCH ×2 (03:09→06:35)
[2023-11-21] MEDS: SODIUM CHLORIDE 0.9% 1,000 ML IV SCH ×3 (03:37→17:40)
[2023-11-21] MEDS ORDERED: SODIUM CHLORIDE 0.9% 1,000 ML IV ONE ×2 (09:09→11:30)
[2023-11-21] MEDS ORDERED: ONDANSETRON 4 MG/2 ML VIAL IVP PRN (09:10)
[2023-11-21] MEDS ORDERED: HYDROcodone/APAP 5-325MG 1 EACH TAB PO PRN (09:13)
[2023-11-21] MEDS ORDERED: KETOROLAC 15 MG/ML 1 ML VIAL IVP PRN (09:13)
[2023-11-21] MEDS ORDERED: ACETAMINOPHEN TAB 325 MG TAB PO PRN (09:13)
[2023-11-21] MEDS: PANTOPRAZOLE 40 MG/10 ML VIAL IVP SCH (09:26)
--- NOTE | 2023-11-21 09:57 | XR ---
EXAMINATION TYPE: XR chest 1V portable DATE OF EXAM: 11/21/2023 Comparison: 10/25/2023 Clinical History: 57-year-old female with preoperative fever Findings: Heart normal size. Aorta and pulmonary vasculature within normal limits. Prominent biapical pleural p arenchymal scarring. Scattered mild interstitial fibrosis is present. Hyperinflation. No consolidatio n or pleural effusion seen. Impression: COPD with biapical pleural-parenchymal scarring, and scattered mild fibrosis. No focal infiltrate see n.
[2023-11-21 12:03] LABS: Appearance,Urine Clear (Clear); Bilirubin,Urine Negative (Negative); Blood,Urine Small (Negative); Color,Urine Colorless; Glucose,Urine (UA) Negative (Negative); Ketones,Urine Negative (Negative); Leukocyte Esterase,Urine Negative (Negative); Mucus,Urine Rare /hpf; Nitrite,Urine Negative (Negative); Protein,Urine Negative (Negative); RBC,Urine 3 /hpf (0-5); Specific Gravity,Urine 1.007 (1.001-1.035); Squamous Epithelial Cell,Urine 3 /hpf (0-4); Urobilinogen,Urine <2.0 mg/dL (<2.0); WBC,Urine 2 /hpf (0-5)
--- NOTE | 2023-11-21 12:25 | P.CONS ---
History of Present Illness - Reason for Consult Consult date: 11/21/23 - History of Present Illness This is a 57 year old female with medical history of COPD, current smoker 1 1/2 pack per day. Comes in secondary to a fall resulting in trauma. She was cooking and the smoke detector when off, She was standing on her recliner chair attempting to turn off a smoke detector when she lost her footing and fell. States she flew into the table. Her daughter lives at home with her, came to help took about 15 minutes to get her off the ground. Came into the ER for evaluation on 10/19/2024 at around 1545 had a hip xray done on the right which reveals a suspected acute impacted subcapital fracture of the right proximal femur. Hip CT reveals valgus impacted right subcapital femoral neck fracture. Elena lemon was admitted to orthopedics medicine placed on consultation for preoperative clearance. Labs on admission showing white count of 6.6, hgb 11.0. Sodium 135, potassium 4.9, BUN 10, creatinine 0.59. normal LFTs. Urinalysis unremarkable. Chest xray reveals COPD with biapical pleural-parenchymal scarring and scattered mild fibrosis. No focal infiltrate seen. Patient has low/normal blood pressure 106/71 on admission, afebrile, in normal sinus rhythm. EKG done showing sinus bradycardia. No reports of chest pain, no shortness of breath, no nausea vomiting or diarrhea. Denies any significant cardiac history. Patient has received 1500 cc fluid bolus due to blood pressure dipping into the 80s systolic suspect patient runs lower at baseline. As long as blood pressure above 90s systolic patient will be cleared medically to undergo surgical repair of the right hip fracture. She is considered low to moderate risk for surgery mostly due to the history of smoking. REVIEW OF SYSTEMS: CONSTITUTIONAL: No fever, no malaise, no fatigue. HEENT: No recent visual problems or hearing problems. Denied any sore throat. CARDIOVASCULAR: No chest pain, orthopnea, PND, no palpitations, no syncope. PULMONARY: No shortness of breath, no cough, no hemoptysis. GASTROINTESTINAL: No diarrhea, no nausea, no vomiting, no abdominal pain. NEUROLOGICAL: No headaches, no weakness, no numbness. HEMATOLOGICAL: Denies any bleeding or petechiae. GENITOURINARY: Denies any burning micturition, frequency, or urgency. MUSCULOSKELETAL/RHEUMATOLOGICAL: Denies any joint pain, swelling, or any muscle pain. ENDOCRINE: Denies any polyuria or polydipsia. The rest of the 14-point review of systems is negative. PHYSICAL EXAMINATION: GENERAL: The patient is alert and oriented x3, not in any acute distress. Well developed, well nourished. HEENT: Pupils are round and equally reacting to light. EOMI. No scleral icterus. No conjunctival pallor. Normocephalic, atraumatic. No pharyngeal erythema. No thyromegaly. CARDIOVASCULAR: S1 and S2 present. No murmurs, rubs, or gallops. PULMONARY: Chest is clear to auscultation, no wheezing or crackles. ABDOMEN: Soft, nontender, nondistended, normoactive bowel sounds. No palpable organomegaly. MUSCULOSKELETAL: No joint swelling or deformity. EXTREMITIES: No cyanosis, clubbing, or pedal edema. NEUROLOGICAL: Gross neurological examination did not reveal any focal deficits. SKIN: No rashes. Assessment and Plan -Acute subcapital fracture of the right hip secondary to fall and trauma. Patient scheduled to undergo surgical intervention today and is cleared medically low to intermediate surgical risk as long as blood pressure remains above 90s systolic would recommend continuing hydration during surgery. Pain management with toradol recommend to avoid narcotics if possible -Marginal blood pressure maintained on normal saline at 130 and patient has r eceived 1.5 L fluid bolus and blood pressure now maintaining in the 100s systolic; had dipped into the 80s suspect patient runs lower at basline -History of COPD with no acute exacerbation -History of smoking 1 1/2 pack per day -Chronic back pain continue on home regimen -Mild protein calorie malnutrition with BMI of 15. -Hx bilateral macular degeneration GI prophylaxis DVT prophylaxis as per primary Full Code Thank you for this consultation The impression and plan of care has been dictated by Deann Parrish Nurse Practitioner as directed. Dr. Rajendra MD I have performed a history and physical examination and medical decision making of this patient, discussed the same with the dictator, and agree with the dictators assessment and plan as written, documented as a scribe. Based on total visit time, I have performed more than 50% of this visit. Past Medical History Past Medical History: COPD, Eye Disorder Additional Past Medical History / Comment(s): "CHRONIC BACK PAIN", "LEG SWELLING AND LEG CRAMPS AT TIMES", DIFFIUCLTY SWALLOWING PILLS AND CERTAIN FOODS, B ILATERAL MACULAR DEGENERATION, "HEADACHES", CONSTIPAION AND SOMETIMES DIARRHEA ALONG WITH ABDOMINAL CRAMPS. History of Any Multi-Drug Resistant Organisms: None Reported Past Surgical History: Section, Cholecystectomy Additional Past Surgical History / Comment(s): d&c, egd Past Anesthesia/Blood Transfusion Reactions: No Reported Reaction Past Psychological History: No Psychological Hx Reported Additional Psychological History / Comment(s): patient does not drive. Smoking Status: Current every day smoker Past Alcohol Use History: None Reported Additional Past Alcohol Use History / Comment(s): STARTED SMOKING AT AGE 16, SMOKES 1-2 PPD. Past Drug Use History: None Reported - Past Family History Mother Additional Family Medical History / Comment(s): GALLSTONES, BURSITIS. MOTHER OF LUNG CANCER AT THE AGE OF 73YRS. SHE WAS A SMOKER. Father Family Medical History: Skin Disorder Additional Family Medical History / Comment(s): FATHER HAS GOUT. HE IS 76YRS OLD. Medications and Allergies Home Medications Medication Instructions Recorded Confirmed Type Ketorolac [Toradol] 10 mg PO Q6HR PRN #15 tab 10/21/23 11/19/23 Rx Acetaminophen-Codeine 300-30mg 1 - 2 tab PO Q4-6H PRN 11/19/23 11/19/23 History [Tylenol w/codeine #3] Ondansetron Odt [Zofran Odt] 4 mg PO Q6H PRN 11/19/23 11/19/23 History Allergies Allergy/AdvReac Type Severity Reaction Status Date / Time dicyclomine [From Bentyl] AdvReac "Didn't Verified 11/19/23 19:55 work" hydrocodone AdvReac "Didn't Verified 11/19/23 19:55 work" ibuprofen [From Motrin] AdvReac Stomach Verified 11/19/23 19:55 upset, vomiting Physical Exam Vitals: Vital Signs Temp Pulse Resp BP BP Pulse Ox 11/21/23 08:00 99.0 F 65 16 85/45 11/21/23 07:04 99 F 78 18 89/57 99 11/21/23 01:54 99.1 F 60 18 101/61 100 11/20/23 19:41 98.4 F 69 18 96/66 98 11/20/23 12:45 98.5 F 57 L 16 94/55 100 Intake and Output 11/20/23 11/21/23 11/21/23 22:59 06:59 14:59 Other: # Voids 2 4 Weight 40.823 kg Results CBC & Chem 7: 11/19/23 19:07 11/19/23 19:07 Labs: Abnormal Lab Results - Last 24 Hours (Table) 11/20/23 11/21/23 Range/Units 19:52 11:06 POC Glucose (mg/dL) 153 H (70-110) mg/dL Urine Blood Small H (Negative) Urine Mucus Rare H (None) /hpf Assessment and Plan Time with Patient: Less than 30
[2023-11-21] MEDS ORDERED: NALOXONE 0.4 MG/ML 1 ML VIAL IV PRN (12:42)
[2023-11-21] MEDS ORDERED: HYDROmorphone 0.5 MG/0.5 ML SYRINGE IVP PRN ×2 (12:42)
[2023-11-21] MEDS ORDERED: MAGNESIUM HYDROXIDE 2,400 MG/30 ML CUP PO PRN (12:42)
[2023-11-21] MEDS ORDERED: HYDROcodone/APAP 7.5-325MG 1 EACH TAB PO PRN (12:44)
[2023-11-21] MEDS ORDERED: SODIUM CHLORIDE 0.9% 1,000 ML IV SCH (12:45)
[2023-11-21] MEDS ORDERED: LACTATED RINGERS 1,000 ML IV ONE (12:52)
[2023-11-21] MEDS ORDERED: DEXAMETHASONE SOD PHOSPHATE 4 MG/ML 1 ML VIAL IVP ONE (12:59)
[2023-11-21] MEDS ORDERED: ONDANSETRON 4 MG/2 ML VIAL IVP ONE (12:59)
[2023-11-21] MEDS ORDERED: SODIUM CHLORIDE 0.9% 50 ML IV ONE (13:30)
--- NOTE | 2023-11-21 14:13 | P.OP ---
Date of Procedure: 11/21/23 Preoperative Diagnosis: Subcapital fracture right hip Postoperative Diagnosis: Subcapital fracture right hip Procedure(s) Performed: Right hip hemiarthroplasty with a direct anterior approach Implants: Last and nephew Polarstem size 4 standard with a collar Last & Nephew tandem unipolar, 46 mm Last & Nephew tandem unipolar 12/14 taper sleeve, +0 mm All components were press-fit. Anesthesia: spinal Surgeon: Rad Bowser [employer] Operator #1: Venice Savage Estimated Blood Loss (ml): 300 Pathology: none sent Condition: stable Disposition: PACU Indications for Procedure: This is a 57-year-old female sustained a ground-level fall at home. She sustained a right femoral neck fracture. After discussing the surgical and nonsurgical treatment options with her at length, I recommended a right hip hemiarthroplasty and informed consent was obtained. Operative Findings: The operative findings are consistent with a subcapital fracture of the right hip Description of Procedure: The patient was seen and evaluated in the preoperative area and the consent was reviewed. The operative site was marked with a skin marker. The patient verified the procedure and operative site. A DEREK block was placed by anesthesia in the preoperative area. The patient was then brought to the operating room and given preoperative antibiotics intravenously. 1 g of Tranexamic acid was also given intravenously. A spinal anesthetic was administered by the anesthesia department. The patient was then placed on the [place] table with the bony prominences well-padded. The hip area was then prepped with a ChloraPrep solution and draped in the usual sterile fashion. A universal timeout was then performed, which confirmed the patient's name, surgical site, ALLERGIES, and procedure being performed on the consent. Next the incision site was located at 1 cm distal and 4 cm lateral to the anterior superior iliac spine. The skin and subcutaneous tissues were sharply incised. Incision was carefully dissected down to the fascia overlying the tensor fascia jevon muscle. This fascia was then incised in line with the muscle fibers. Care was taken to stay laterally in order to avoid injuring the lateral femoral cutaneous nerve. Next, using blunt finger dissection, the tensor fascia jevon muscle was dissected off its investing fascia. The muscle was then carefully retracted laterally with a cobra retractor over the lateral neck of the femur. Next, the circumflex vessels were identified and cauterized using the Aquamantis device. The anterior hip capsule was then exposed. The capsule was then opened and an inverted T fashion. The retractors were then placed intracapsularly. The retractors were maintained intracapsular throughout the procedure. The proximal femur was then visualized. A small amount of traction was placed on the leg. The femoral neck was then osteotomized at the appropriate level above the lesser trochanter. A small wedge of bone was then removed from the remaining femoral head. Next, using a corkscrew the femoral head was removed from the acetabulum. The femoral head was then measured. Attention was then turned to the acetabulum. The acetabulum was exposed and inspected. There was no significant arthrosis. Attention was then directed to the femur. With the aid of the [place] table, the femur was externally rotated to approximately 130, extended, and adducted under the opposite leg. A side hook was then placed under the proximal femur, and the side hook elevator was used to elevate the proximal femur while releasing the capsule. Retractors were then placed. A capsular release was performed, as well as a release of the conjoined tendon, which afforded excellent visualization of the proximal femur. Next, a box osteotome was used to lateralize the proximal femur. A bander hand was then used to locate the femoral canal. Sequential broaching was then performed with appropriate size which afforded excellent fixation in the proximal femur. A trial was then placed with appropriate head and neck, and the hip was gently reduced with the aid of the [place] table. Fluoroscopy was then used to check position of the compo nents, as well as to evaluate the leg lengths and offset. The leg lengths and offset were measured as closely as possible to ensure stability of the hip. The hip was then gently dislocated and the trials were then removed. Final implants were then impacted and the hip was again reduced. Final fluoroscopic x-rays confirmed that the components were in anatomic position. The leg lengths and offset were measured and were found to coincide with the trial measurements. The hip was also taken through range of motion, and found to be stable. The hip was then copiously irrigated with antibiotic solution with pulsatile lavage. The hip was then irrigated with Irrisept solution. The fascia was then closed with 2-0 strata fix suture. The subcutaneous tissue was closed with 3-0 Vicryl. The subcuticular tissue was closed with 3-0 strata fix suture. The skin was then closed with Exofin skin glue. After the glue and dried, and Optifoam silver impregnated dressing was applied. The patient was then transferred to the recovery room in stable condition. The assistant at surgery CYDNEY Galloway was required due to the complexity of surgery, and the need for skilled bar assistant for positioning, draping, exposure, retraction, and closure of the wound.
--- NOTE | 2023-11-21 15:38 | XR ---
EXAMINATION TYPE: XR Hip Limited RT DATE OF EXAM: 11/21/2023 Comparison: None Clinical History: [id number] female Rt Hip-Ant Findings: rt ant hip FT: 14 seconds DAP: 0.3622 Gycm2 Impression: Intraoperative fluoroscopy as above.
--- NOTE | 2023-11-21 15:52 | XR ---
EXAMINATION TYPE: XR Hip Limited 1 view RT DATE OF EXAM: 11/21/2023 Comparison: None Clinical History: 57-year-old female Status post hip surgery, assess surgical alignment Findings: Single portable AP view shows right hip hemiarthroplasty. Femoral stem component of prosthesis appear s well seated without periprosthetic fracture. Soft tissue air related to recent operation. Alignment grossly anatomic. Impression: Uncomplicated postoperative appearance of the right hip hemiarthroplasty.
--- NOTE | 2023-11-21 16:05 | FL ---
EXAMINATION TYPE: FL guidance operating room DATE OF EXAM: 11/21/2023 Comparison: None Clinical History: 57-year-old female Rt Hip-Ant Findings: rt ant hip FT: 14 seconds DAP: 0.3622 Gycm2 Images provided Impression: Intraoperative fluoroscopy as above.
[2023-11-21] MEDS: HYDROmorphone 1 MG/ML 1 ML SYRINGE IVP PRN (22:32)
[2023-11-21] MEDS: SENNOSIDES-DOCUSATE SODIUM 1 EACH TAB PO SCH (22:32)
[2023-11-22] MEDS: SODIUM CHLORIDE 0.9% 1,000 ML IV SCH ×3 (02:38→15:37)
[2023-11-22] MEDS: HYDROmorphone 1 MG/ML 1 ML SYRINGE IVP PRN ×2 (03:19→08:08)
[2023-11-22] MEDS: RIVAROXABAN 10 MG TAB PO SCH (08:09)
[2023-11-22] MEDS: PANTOPRAZOLE 40 MG/10 ML VIAL IVP SCH (08:09)
[2023-11-22] MEDS: HYDROcodone/APAP 7.5-325MG 1 EACH TAB PO PRN ×3 (10:15→21:54)
[2023-11-22 10:21] LABS: HCT 20.3 % (37.2-46.3); HGB 6.4 g/dL (12.0-15.0); MCH 30.3 pg (27.0-32.0); MCHC 31.5 g/dL (32.0-37.0); MCV 96.2 FL (80.0-97.0); Mean Platelet Volume 10.6 FL (9.5-12.2); NRBC Per 100 WBC 0 X 10*3/uL (0.00-0.01); Platelet Count 150 X 10*3/uL (140-440); RBC 2.11 X 10*6/uL (4.10-5.20); RDW 13.2 % (11.5-14.5)
[2023-11-22 10:28] LABS: Basophils # (A) 0.01 X 10*3/uL (0.00-0.10); Basophils % (A) 0.1 %; Eosinophils # (A) 0 X 10*3/uL (0.04-0.35); Eosinophils % (A) 0 %; Lymphocytes # (A) 0.32 X 10*3/uL (0.90-5.00); Lymphocytes % (A) 3.6 %; Monocytes # (A) 0.37 X 10*3/uL (0.20-1.00); Monocytes % (A) 4.2 %; Neutrophils # (A) 8.16 X 10*3/uL (1.80-7.70); Neutrophils % (A) 91.7 %
[2023-11-22] MEDS ORDERED: HYDROmorphone 0.5 MG/0.5 ML SYRINGE IVP PRN (10:49)
[2023-11-22] MEDS ORDERED: ONDANSETRON 4 MG/2 ML VIAL IVP PRN (10:49)
[2023-11-22] MEDS ORDERED: LIDOCAINE 1% (10MG/ML) FOR IV START INTRADERMA PRN (10:49)
[2023-11-22] MEDS ORDERED: DEXAMETHASONE SOD PHOSPHATE 4 MG/ML 1 ML VIAL IV ONE (10:49)
[2023-11-22] MEDS ORDERED: droPERidol 5 MG/2 ML VIAL IVP ONE (10:49)
--- NOTE | 2023-11-22 10:52 | P.PN ---
Subjective Progress Note Date: 11/22/23 This is a 57-year-old female who is status post right hip hemiarthroplasty with direct anterior approach. This is postoperative day #1 and patient is seen and evaluated at bedside today. Patient states that she does have pain in the right lower extremity and is requiring assistance with mobilization. Patient denies any lightheadedness or dizziness. Objective - Vital Signs Vital signs: Vital Signs Temp 98.4 F 11/22/23 06:55 Pulse 86 11/22/23 06:55 Resp 18 11/22/23 10:43 BP 104/63 11/22/23 06:55 Pulse Ox 98 11/22/23 06:55 FiO2 Intake & Output 11/21/23 11/22/23 11/22/23 18:59 06:59 18:59 Intake Total 750 1250 250 Output Total 300 Balance 450 1250 250 Intake: IV 750 Intake, IV Titration 1250 Amount Sodium Chloride 0.9% 1, 1200 000 ml @ 130 mls/hr IV . Q7H42M [facility] Rx#:[id number] ceFAZolin 1,000 mg In 50 Sodium Chloride 0.9% 50 ml @ 100 mls/hr IVPB Q8HR [facility] Rx#:[id number] Oral 250 Output: Estimated Blood Loss 300 Other: Voiding Method Bedpan Bedpan Bedpan # Voids 4 2 2 - Exam Vital signs are stable. Patient is in no acute distress and is alert and oriented 3. Calf is soft and nontender to palpation. Dressing is clean, dry, and intact. There is minimal soft tissue swelling to the right thigh and lower leg. Compartments are soft. Patient has full foot and ankle motion without pain or difficulty. Dorsalis pedis pulse is 2+. Right lower extremity is warm and well perfused. Sensation intact. Neurovascular status and circulatory status are intact. - Labs CBC & Chem 7: 11/22/23 06:11 11/19/23 19:07 Labs: Abnormal Lab Results - Last 24 Hours (Table) 11/21/23 11/22/23 Range/Units 11:06 06:11 RBC 2.11 L (4.10-5.20) X 10*6/uL Hgb 6.4 A* (12.0-15.0) g/dL Hct 20.3 L (37.2-46.3) % MCHC 31.5 L (32.0-37.0) g/dL Neutrophils # 8.16 H (1.80-7.70) X 10*3/uL Lymphocytes # 0.32 L (0.90-5.00) X 10*3/uL Eosinophils # 0 L (0.04-0.35) X 10*3/uL Urine Blood Small H (Negative) Urine Mucus Rare H (None) /hpf Assessment and Plan (1) Fall Current Visit: Yes Status: Acute Code(s): W19.XXXA - UNSPECIFIED FALL, INITIAL ENCOUNTER SNOMED Code(s): 0781534 (2) Subcapital fracture of hip Current Visit: Yes Status: Acute Code(s): S72.019A - UNSP INTRACAPSULAR FRACTURE OF UNSP FEMUR, INIT FOR CLOS FX SNOMED Code(s): 313090547 Plan: Continue routine postop care and pain control. Patient's hemoglobin is 6.4 this morning and a unit of blood is ordered per internal medicine. Continue anticoagulation. Weightbearing as tolerated with a walker. Leave dressing in place for 7 days. Appreciate input from internal medicine. Anticipate discharge home with homecare or to ECF in the next 24-48 hours.
[2023-11-22] MEDS: LACTATED RINGERS 1,000 ML IV SCH (10:57)
--- NOTE | 2023-11-22 14:51 | P.PN ---
Subjective Progress Note Date: 11/22/23 This is a 57 year old female with medical history of COPD, current smoker 1 1/2 pack per day. Comes in secondary to a fall resulting in trauma. She was cooking and the smoke detector when off, She was standing on her recliner chair attempting to turn off a smoke detector when she lost her footing and fell. States she flew into the table. Her daughter lives at home with her, came to help took about 15 minutes to get her off the ground. Came into the ER for evaluation on 10/19/2024 at around 1545 had a hip xray done on the right which reveals a suspected acute impacted subcapital fracture of the right proximal femur. Hip CT reveals valgus impacted right subcapital femoral neck fracture. Patient was admitted to orthopedics medicine placed on consultation for preoperative clearance. Labs on admission showing white count of 6.6, hgb 11.0. Sodium 135, potassium 4.9, BUN 10, creatinine 0.59. normal LFTs. Urinalysis unremarkable. Chest xray reveals COPD with biapical pleural-parenchymal scarring and scattered mild fibrosis. No focal infiltrate seen. Patient has low/normal blood pressure 106/71 on admission, afebrile, in normal sinus rhythm. EKG done showing sinus bradycardia. No reports of chest pain, no shortness of breath, no nausea vomiting or diarrhea. Denies any significant cardiac history. Patient has received 1500 cc fluid bolus due to blood pressure dipping into the 80s systolic suspect patient runs lower at baseline. As long as blood pressure above 90s systolic patient will be cleared medically to undergo surgical repair of the right hip fracture. She is considered low to moderate risk for surgery mostly due to the history of smoking. 11/22/2023 Patient is evaluated today sitting up in bed continues to report pain to the right hip she is postoperative day 1 right hip hemiarthroplasty. She is hoping to be discharged home and is pending evaluation by physical therapy which will need to be tomorrow or Thursday there is nobody here available today for physical therapy evaluations. She was started on sotalol toe postoperatively for DVT prophylaxis by general surgery. Hemoglobin today is now 6.4 this could be a postoperative complication there is no signs of active bleeding. Patient will be transfused 1 unit of PRBCs. Review of Systems Constitutional: Denied any fatigue denied any fever. Cardio vascular: denied any chest pain, palpitations Gastrointestinal: denied any nausea, vomiting, diarrhea Pulmonary: Denied any shortness of breath cough Neurologic denied any new focal deficits All inpatient medications were reviewed and appropriate changes in these medications as dictated in the interval history and assessment and plan. PHYSICAL EXAMINATION: GENERAL: The patient is alert and oriented x3, not in any acute distress. Well developed, well nourished. HEENT: Pupils are round and equally reacting to light. EOMI. No scleral icterus. No conjunctival pallor. Normocephalic, atraumatic. No pharyngeal erythema. No thyromegaly. CARDIOVASCULAR: S1 and S2 present. No murmurs, rubs, or gallops. PULMONARY: Chest is clear to auscultation, no wheezing or crackles. ABDOMEN: Soft, nontender, nondistended, normoactive bowel sounds. No palpable organomegaly. MUSCULOSKELETAL: No joint swelling or deformity. EXTREMITIES: No cyanosis, clubbing, or pedal edema. NEUROLOGICAL: Gross neurological examination did not reveal any focal deficits. SKIN: No rashes. Assessment and Plan -Acute subcapital fracture of the right hip secondary to fall and trauma. Patient is cleared medically low to intermediate surgical risk as long as blood pressure remains above 90s systolic would recommend continuing hydration during surgery. Pain management with toradol recommend to avoid narcotics if possible. Patient is postoperative nday #1 right hip hemiarthroplasty. -Marginal blood pressure patient has received 1.5 L fluid bolus and blood pressure now maintaining in the 100s systolic; had dipped into the 80s suspect patient runs lower at basline is on normal saline at 75 mL per hour -Hemoglobin 6.4 likely postoperative complication no signs of active bleeding patient has been started on's and also for DVT prophylaxis postsurgical she will receive 1 unit of PRBCs and repeat hemoglobin tomorrow. -History of COPD with no acute exacerbation -History of smoking 1 1/2 pack per day -Chronic back pain continue on home regimen -Mild protein calorie malnutrition with BMI of 15. -Hx bilateral macular degeneration GI prophylaxis DVT prophylaxis as per primary Full Code Needs to be evaluated by physical therapy for discharge planning Thank you for this consultation The impression and plan of care has been dictated by Deann Parrish Nurse Practitioner as directed. Dr. Rajendra MD I have performed a history and physical examination and medical decision making of this patient, discussed the same with the dictator, and agree with the dictators assessment and plan as written, documented as a scribe. Based on total visit time, I have performed more than 50% of this visit. Objective - Vital Signs Vital signs: Vital Signs Temp 98.4 F 11/22/23 06:55 Pulse 86 11/22/23 06:55 Resp 16 11/22/23 06:55 BP 104/63 11/22/23 06:55 Pulse Ox 98 11/22/23 06:55 FiO2 Intake & Output 11/21/23 11/22/23 11/22/23 18:59 06:59 18:59 Intake Total 750 1250 Output Total 300 Balance 450 1250 Intake: IV 750 Intake, IV Titration 1250 Amount Sodium Chloride 0.9% 1, 1200 000 ml @ 130 mls/hr IV . Q7H42M [facility] Rx#:[id number] ceFAZolin 1,000 mg In 50 Sodium Chloride 0.9% 50 ml @ 100 mls/hr IVPB Q8HR [facility] Rx#:[id number] Output: Estimated Blood Loss 300 Other: Voiding Method Bedpan Bedpan # Voids 4 2 - Labs CBC & Chem 7: 11/22/23 06:11 11/19/23 19:07 Labs: Abnormal Lab Results - Last 24 Hours (Table) 11/21/23 Range/Units 11:06 Urine Blood Small H (Negative) Urine Mucus Rare H (None) /hpf Assessment and Plan Time with Patient: Less than 30
[2023-11-22] MEDS: SENNOSIDES-DOCUSATE SODIUM 1 EACH TAB PO SCH (21:54)
[2023-11-23] MEDS: SODIUM CHLORIDE 0.9% 1,000 ML IV SCH (05:17)
[2023-11-23] MEDS: HYDROcodone/APAP 7.5-325MG 1 EACH TAB PO PRN ×2 (05:28→13:48)
[2023-11-23 08:54] LABS: Basophils # (A) 0.03 X 10*3/uL (0.00-0.10); Basophils % (A) 0.3 %; Eosinophils # (A) 0.05 X 10*3/uL (0.04-0.35); Eosinophils % (A) 0.5 %; HCT 25.4 % (37.2-46.3); HGB 8.3 g/dL (12.0-15.0); Lymphocytes # (A) 1.13 X 10*3/uL (0.90-5.00); Lymphocytes % (A) 10.3 %; MCHC 32.7 g/dL (32.0-37.0); MCV 94.8 FL (80.0-97.0); Mean Platelet Volume 11.5 FL (9.5-12.2); Monocytes # (A) 0.44 X 10*3/uL (0.20-1.00); NRBC Per 100 WBC 0 X 10*3/uL (0.00-0.01); Neutrophils # (A) 9.33 X 10*3/uL (1.80-7.70); Neutrophils % (A) 84.5 %; Platelet Count 160 X 10*3/uL (140-440); RBC 2.68 X 10*6/uL (4.10-5.20); RDW 14.6 % (11.5-14.5); WBC 11.02 X 10*3/uL (4.50-10.00)
[2023-11-23 09:09] VITALS: RESP 20
--- NOTE | 2023-11-23 09:12 | P.PN ---
Subjective Progress Note Date: 11/23/23 This is a 57-year-old female who is status post right hip hemiarthroplasty with direct anterior approach. This is postoperative day #2 and patient is seen and evaluated at bedside today. Patient denies any new complaints today. Patient states that she would like to go home with home care, and states that she has not worked with physical therapy yet today. Patient states that she does ambulate in her room with assistance using her walker. Objective - Vital Signs Vital signs: Vital Signs Temp 98.8 F 11/23/23 08:09 Pulse 80 11/23/23 08:09 Resp 20 11/23/23 08:09 BP 110/69 11/23/23 08:09 Pulse Ox 96 11/23/23 08:09 FiO2 Intake & Output 11/22/23 11/23/23 11/23/23 18:59 06:59 18:59 Intake Total 731 1000 Balance 731 1000 Intake: Oral 450 1000 Blood Product 281 Rc Pheresis As-3 Unit 281 [id number] Other: Voiding Method Bedpan Bedside Commode # Voids 3 3 - Exam Vital signs are stable. Patient is in no acute distress and is alert and oriented 3. Calf is soft and nontender to palpation. Dressing is clean, dry, and intact. There is minimal soft tissue swelling to the right thigh and lower leg. Compartments are soft. Patient has full foot and ankle motion without pain or difficulty. Dorsalis pedis pulse is 2+. Right lower extremity is warm and well perfused. Sensation intact. Neurovascular status and circulatory status are intact. - Labs CBC & Chem 7: 11/23/23 04:57 11/19/23 19:07 Labs: Abnormal Lab Results - Last 24 Hours (Table) 11/22/23 11/22/23 11/23/23 Range/Units 06:11 10:35 04:57 WBC 11.02 H (4.50-10.00) X 10*3/uL RBC 2.11 L 2.68 L (4.10-5.20) X 10*6/uL Hgb 6.4 A* 8.3 L (12.0-15.0) g/dL Hct 20.3 L 25.4 L (37.2-46.3) % MCHC 31.5 L (32.0-37.0) g/dL RDW 14.6 H (11.5-14.5) % Neutrophils # 8.16 H 9.33 H (1.80-7.70) X 10*3/uL Lymphocytes # 0.32 L (0.90-5.00) X 10*3/uL Eosinophils # 0 L (0.04-0.35) X 10*3/uL Crossmatch See Detail Assessment and Plan (1) Fall Current Visit: Yes Status: Acute Code(s): W19.XXXA - UNSPECIFIED FALL, INITIAL ENCOUNTER SNOMED Code(s): 3541489 (2) Subcapital fracture of hip Current Visit: Yes Status: Acute Code(s): S72.019A - UNSP INTRACAPSULAR FRACTURE OF UNSP FEMUR, INIT FOR CLOS FX SNOMED Code(s): 706015544 Plan: Continue routine postop care and pain control. Continue anticoagulation. Weightbearing as tolerated with a walker. Leave dressing in place for 7 days. Appreciate input from internal medicine and physical therapy. Anticipate discharge home with homecare or to ECF in the next 24-48 hours.
[2023-11-23] MEDS: RIVAROXABAN 10 MG TAB PO SCH (10:11)
[2023-11-23] MEDS: PANTOPRAZOLE 40 MG/10 ML VIAL IVP SCH (10:11)
--- NOTE | 2023-11-23 10:23 | P.PN ---
Subjective Progress Note Date: 11/23/23 This is a 57-year-old female status post fall, sustained fracture of her right hip, status post right hip hemiarthroplasty with tract anterior approach. Tolerated procedure well. Receive 1 unit of packed RBCs postop with current hemoglobin 8.3. Positive diet intake, denies nausea or vomiting. Denies di arrhea .Passing flatus. Ambulating in room with walker, tolerating exertion well. Pain control improving. Denies chest pain, palpitations or shortness of breath. Maintaining O2 sats in the mid to high 90s on room air. Denies lightheadedness, dizziness or focal deficits. Anticoagulated with Xarelto, GI prophylaxis with Protonix. Objective - Vital Signs Vital signs: Vital Signs Temp 98.8 F 11/23/23 08:09 Pulse 80 11/23/23 08:09 Resp 20 11/23/23 08:09 BP 110/69 11/23/23 08:09 Pulse Ox 96 11/23/23 08:09 FiO2 Intake & Output 11/22/23 11/23/23 11/23/23 18:59 06:59 18:59 Intake Total 731 1000 Balance 731 1000 Intake: Oral 450 1000 Blood Product 281 Rc Pheresis As-3 Unit 281 [id number] Other: Voiding Method Bedpan Bedside Commode # Voids 3 3 - Exam GENERAL: The patient is alert and oriented x3, not in any acute distress. HEENT: Normocephalic, Pupils are round and equally reacting to light. No scleral icterus. No conjunctival pallor. CARDIOVASCULAR: S1 and S2 present. No murmurs, rubs, or gallops. PULMONARY: Unlabored, equal air entry, CTA. ABDOMEN: Soft, nontender, nondistended, normoactive bowel sounds. No guarding, no rigidity. EXTREMITIES: Right lower extremity dressing clean dry and intact with minimal edema .No cyanosis, clubbing, or pedal edema. NEUROLOGICAL: Gross neurological examination did not reveal any focal deficits. SKIN: Warm and dry, No rashes. - Labs CBC & Chem 7: 11/23/23 04:57 11/19/23 19:07 Labs: Abnormal Lab Results - Last 24 Hours (Table) 11/22/23 11/22/23 11/23/23 Range/Units 06:11 10:35 04:57 WBC 11.02 H (4.50-10.00) X 10*3/uL RBC 2.68 L (4.10-5.20) X 10*6/uL Hgb 8.3 L (12.0-15.0) g/dL Hct 25.4 L (37.2-46.3) % RDW 14.6 H (11.5-14.5) % Neutrophils # 8.16 H 9.33 H (1.80-7.70) X 10*3/uL Lymphocytes # 0.32 L (0.90-5.00) X 10*3/uL Eosinophils # 0 L (0.04-0.35) X 10*3/uL Crossmatch See Detail Assessment and Plan Assessment: Acute subcapital fracture of the right hip secondary to fall and trauma, status post right hip hemiarthroplasty, anterior approach. Acute blood loss anemia, status post 1 unit of packed RBCs, postoperative, expected outcome. COPD, stable Nicotine dependence Chronic back pain Mild protein calorie malnutrition, BMI 15 History of Macular degeneration, bilateral Plan: Continue on current medication regime ,monitoring and symptomatic treatment. Pain management and DVT prophylaxis as per primary. Aggressive pulmonary toileting with incentive spirometer reinforced. PT currently in room/evaluation pending. Follow-up in one week after discharge from subacute rehab. The impression and plan of care has been dictated as directed. : I performed a history and examination of this patient, discussed the same with the dictator. I agree with the dictator's note ,documented as a scribe. Any additional findings or plans will be noted.
--- NOTE | 2023-11-23 10:51 | P.DS ---
Providers Date of admission: 11/19/23 18:41 Expected date of discharge: 11/23/23 Attending physician: Rad Bowser Consults: 11/19/23 18:47 Consult Physician Routine Consulting Provider: Dilshad Vazquez Consult Reason/Comments: medicine consult, R Subcapital fracture Do you want consulting provider notified?: Yes, Notify in am Primary care physician: vAril Guzman - Discharge Diagnosis(es) (1) Fall Current Visit: Yes Status: Acute (2) Subcapital fracture of hip Current Visit: Yes Status: Acute Hospital Course: This is a 57-year-old female who sustained a fracture of her right hip after a fall at home on 11/18/2023. The patient presented for evaluation in the emergency room. After discussion and consideration patient elects to proceed with right hip hemiarthroplasty with a direct anterior approach. The patient is seen preoperatively by Dr. Bowser and medically cleared for surgery by internal medicine. Patient is admitted to [facility] on 11/19/2023 and right hip hemiarthroplasty with a direct anterior approach is performed on 11/21/2023. The procedure is performed without complication or sequelae. The patient is doing well postoperatively. The patient did receive 1 unit of blood on postop day #1. Labs and vital signs are stable on day of discharge. On day of discharge patient's hip incision is healing well. There is minimal erythema. There is no drainage noted at this time. There is minimal soft tissue swelling to the hip and thigh. Patient has full foot and ankle motion without difficulty or pain. Calf is soft and nontender to palpation. Neurovascular status to the right lower extremity is intact. Patient is discharged home in good condition. Please see med rec for accurate list of home medications. Patient Condition at Discharge: Good Plan - Discharge Summary New Discharge Prescriptions: New Sennosides [Senokot] 2 tab PO DAILY PRN #60 tablet PRN Reason: Constipation HYDROcodone/APAP 7.5-325MG [[place] 7.5-325] 1 - 2 tab PO Q6H PRN #32 tab PRN Reason: Pain Rivaroxaban [Xarelto] 10 mg PO DAILY #30 tab No Action Ketorolac [Toradol] 10 mg PO Q6HR PRN #15 tab PRN Reason: Pain Acetaminophen-Codeine 300-30mg [Tylenol w/codeine #3] 1 - 2 tab PO Q4-6H PRN PRN Reason: Pain Ondansetron Odt [Zofran Odt] 4 mg PO Q6H PRN PRN Reason: Nausea Discharge Medication List Ketorolac [Toradol] 10 mg PO Q6HR PRN #15 tab 10/21/23 [Rx] Acetaminophen-Codeine 300-30mg [Tylenol w/codeine #3] 1 - 2 tab PO Q4-6H PRN 11/19/23 [History] Ondansetron Odt [Zofran Odt] 4 mg PO Q6H PRN 11/19/23 [History] HYDROcodone/APAP 7.5-325MG [[place] 7.5-325] 1 - 2 tab PO Q6H PRN #32 tab 11/23/23 [Rx] Rivaroxaban [Xarelto] 10 mg PO DAILY #30 tab 11/23/23 [Rx] Sennosides [Senokot] 2 tab PO DAILY PRN #60 tablet 11/23/23 [Rx] Follow up Appointment(s)/Referral(s): Dilshad Vazquez MD [STAFF PHYSICIAN] - 1 Week (after dc from [facility] ) [facility], [NON-STAFF] - As Needed Rad Bowser DO [Doctor of Osteopathic Medicine] - 2 Weeks Activity/Diet/Wound Care/Special Instructions: Weightbearing as tolerated with a walker. Leave dressing in place for 7 days. May shower with dressing intact. Please take Xarelto once daily for 30 days to help prevent blood clots. Please take medications as prescribed. Please call [facility] with any questions or concerns, . Discharge Disposition: HOME WITH HOME HEALTH SERVICES
[2023-11-23] MEDS: LACTATED RINGERS 1,000 ML IV SCH (12:07)
[2023-11-23 16:47] VITALS: BP 93/56; PULSE 95; TEMP 98.5
== END 2023-11-23 16:46 | disposition home health service (06) | DRG 323 ==
LOC: EC 14:16 → 4SSUR 18:41
PROVIDERS: ADMIT Orthopaedic Surgery; ATTEND Orthopaedic Surgery
PROC: 0SRR0JA Replacement of Right Hip Joint, Femoral Surface with Synthetic Substitute, Uncemented, Open Approach (ICD-10-PCS; principal; 2023-11-21 12:30)
PROC: 30233N1 Transfusion of Nonautologous Red Blood Cells into Peripheral Vein, Percutaneous Approach (ICD-10-PCS; 2023-11-22)
DX: S72.011A Unspecified intracapsular fracture of right femur, initial encounter for closed fracture (principal); W07.XXXA Fall from chair, initial encounter; Y92.009 Unspecified place in unspecified non-institutional (private) residence as the place of occurrence of the external cause; D62 Acute posthemorrhagic anemia; E44.1 Mild protein-calorie malnutrition; Z68.1 Body mass index [BMI] 19.9 or less, adult; G89.29 Other chronic pain; F17.210 Nicotine dependence, cigarettes, uncomplicated; H35.30 Unspecified macular degeneration; R51.9 Headache, unspecified; Z79.899 Other long term (current) drug therapy; Z88.6 Allergy status to analgesic agent; Z88.1 Allergy status to other antibiotic agents; Z88.5 Allergy status to narcotic agent
CPT/HCPCS: 71045; 73501; 73502; 80053; 81001; 85025; 85610; 86850; 86900; 86901; 86920; 93005; 96372; 99285

== ENCOUNTER 2024-01-31 16:37 | Emergency (ER) | payer OTHER ==
--- NOTE | 2024-01-31 16:46 | ED ---
Extremity Problem HPI - General Chief complaint: Extremity Problem,Nontraumatic Stated complaint: Right hip pain Time Seen by Provider: 01/31/24 16:46 Source: patient, RN notes reviewed Mode of arrival: ambulatory Limitations: no limitations - History of Present Illness Initial comments: 58-year-old female with past medical history of right total hip replaced presents emergency department chief complaint of right hip pain. Patient states over the last 4 days she has had worsening pain in her right hip, denies any falls or trauma to the area. Denies any numbness or tingling, saddle anesthesias, loss of bladder or bowel continence. States that the pain starts at her right hip and radiates into her groin and is difficult to adduct her hip. She has taken Tylenol and Motrin at home with little to no relief. Patient has a follow-up appointment tomorrow with her orthopedic surgeon that completed the hip replacement. States she has tried physical therapy at home for roughly 2 weeks with little help in decreasing pain relief or increasing mobility. - Related Data Home Medications Medication Instructions Recorded Confirmed Acetaminophen-Codeine 300-30mg 1 - 2 tab PO Q4-6H PRN 11/19/23 11/19/23 [Tylenol w/codeine #3] Ondansetron Odt [Zofran Odt] 4 mg PO Q6H PRN 11/19/23 11/19/23 Previous Rx's Medication Instructions Recorded Ketorolac [Toradol] 10 mg PO Q6HR PRN #15 tab 10/21/23 HYDROcodone/APAP 7.5-325MG [[place] 1 - 2 tab PO Q6H PRN #32 tab 11/23/23 7.5-325] Rivaroxaban [Xarelto] 10 mg PO DAILY #30 tab 11/23/23 Sennosides [Senokot] 2 tab PO DAILY PRN #60 tablet 11/23/23 Allergies Allergy/AdvReac Type Severity Reaction Status Date / Time dicyclomine [From Bentyl] AdvReac "Didn't Verified 01/31/24 16:45 work" hydrocodone AdvReac "Didn't Verified 01/31/24 16:45 work" ibuprofen [From Motrin] AdvReac Stomach Verified 01/31/24 16:45 upset, vomiting Review of Systems ROS Statement: Those systems with pertinent positive or pertinent negative responses have been documented in the HPI. ROS Other: All systems not noted in ROS Statement are negative. Past Medical History Past Medical History: COPD, Eye Disorder Additional Past Medical History / Comment(s): "CHRONIC BACK PAIN", "LEG SWELLING AND LEG CRAMPS AT TIMES", DIFFIUCLTY SWALLOWING PILLS AND CERTAIN FOODS, BILATERAL MACULAR DEGENERATION, "HEADACHES", CONSTIPAION AND SOMETIMES DIARRHEA ALONG WITH ABDOMINAL CRAMPS. History of Any Multi-Drug Resistant Organisms: None Reported Past Surgical History: Section, Cholecystectomy Additional Past Surgical History / Comment(s): d&c, egd Past Anesthesia/Blood Transfusion Reactions: No Reported Reaction Past Psychological History: No Psychological Hx Reported Smoking Status: Current every day smoker Past Alcohol Use History: None Reported Past Drug Use History: None Reported - Past Family History Mother Additional Family Medical History / Comment(s): GALLSTONES, BURSITIS. MOTHER OF LUNG CANCER AT THE AGE OF 73YRS. SHE WAS A SMOKER. Father Family Medical History: Skin Disorder Additional Family Medical History / Comment(s): FATHER HAS GOUT. HE IS 76YRS OLD. General Exam - General Exam Comments Initial Comments: 58-year-old female appearing older than stated age Limitations: physical limitation General appearance: alert, in no apparent distress, cachectic Head exam: Present: atraumatic, normocephalic, normal inspection Eye exam: Present: normal appearance, PERRL, EOMI. Absent: scleral icterus, conjunctival injection, periorbital swelling ENT exam: Present: normal exam, mucous membranes moist Neck exam: Present: normal inspection. Absent: tenderness, meningismus, lymphadenopathy Respiratory exam: Present: normal lung sounds bilaterally. Absent: respiratory distress, wheezes, rales, rhonchi, stridor Cardiovascular Exam: Present: regular rate, normal rhythm, normal heart sounds. Absent: systolic murmur, diastolic murmur, rubs, gallop, clicks GI/Abdominal exam: Present: soft, normal bowel sounds. Absent: distended, tenderness, guarding, rebound, rigid Right Hip exam: Present: tenderness, laceration (previous surgical scar, non erythematous). Absent: full ROM (limited abduction, adduction, internal and external hip rotation) Upper Leg exam: Present: tenderness (circumferential tenderness over proximal hip, worse with adduction and abduction). Absent: swelling, abrasion, laceration Knee exam: Present: normal inspection, full ROM. Absent: tenderness, swelling, abrasion Neurovascular tendon exam: Present: no vascular compromise. Absent: pulse deficit, abnormal cap refill, motor deficit, sensory deficit Back exam: Present: normal inspection Neurological exam: Present: alert, oriented X3, CN II-XII intact Psychiatric exam: Present: normal affect, normal mood Skin exam: Present: warm, dry, intact, normal color. Absent: rash Course Vital Signs 01/31/24 16:41 Temperature 98 F Pulse Rate 107 H Respiratory 18 Rate Blood Pressure 108/74 O2 Sat by Pulse 100 Oximetry Medical Decision Making - Medical Decision Making Was pt. sent in by a medical professional or institution (, PA, REGIONAL WILDLIFE AGENT, urgent care, hospital, or [facility]...) When possible be specific @ -No Did you speak to anyone other than the patient for history (EMS, parent, family, police, friend...)? What history was obtained from this source @ -No Did you review nursing and triage notes (agree or disagree)? Why? @ -I reviewed and agree with nursing and triage notes Were old charts reviewed (outside hosp., previous admission, EMS record, old EKG, old radiological studies, urgent care reports/EKG's, [facility] records)? Report findings @ -Previous chart reviewed where she underwent total hip replacement due to trauma. Differential Diagnosis (chest pain, altered mental status, abdominal pain women, abdominal pain men, vaginal bleeding, weakness, fever, dyspnea, syncope, headache, dizziness, GI bleed, back pain, seizure, CVA, palpatations, mental health, musculoskeletal)? @ -Differential Musculoskeletal Muscular strain, contusion, ligament sprain, fracture, arthritis, septic arthritis, bursitis, cellulitis, muscle spasm, nerve compression, DVT, arterial occlusion, herpes zoster, electrolyte abnormality, tumor.... This is not meant to be in all inclusive list EKG interpreted by me (3pts min.). @ -None X-rays interpreted by me (1pt min.). @ -X-ray right hip and pelvis reveals no acute osseous fracture, hardware in place. CT interpreted by me (1pt min.). @ -None done U/S interpreted by me (1pt. min.). @ -None done What testing was considered but not performed or refused? (CT, X-rays, U/S, labs)? Why? @ -None What meds were considered but not given or refused? Why? @ -None Did you discuss the management of the patient with other professionals (professionals i.e. , PA, REGIONAL WILDLIFE AGENT, lab, RT, psych nurse, director of social media marketing, boiler tester, teacher, court security officer, showcase maker)? Give summary @ -No Was smoking cessation discussed for >3mins.? @ -No Was critical care preformed (if so, how long)? @ -No Were there social determinants of health that impacted care today? How? (Homelessness, low income, unemployed, alcoholism, drug addiction, transportation, low edu. Level, literacy, decrease access to med. care, shelter, rehab)? @ -No Was there de-escalation of care discussed even if they declined (Discuss DNR or withdrawal of care, Hospice)? DNR status @ -No What co-morbidities impacted this encounter? (DM, HTN, Smoking, COPD, CAD, Cancer, CVA, ARF, Chemo, Hep., AIDS, mental health diagnosis, sleep apnea, morbid obesity)? @ -Smoking Was patient admitted / discharged? Hospital course, mention meds given and route, prescriptions, significant lab abnormalities, going to OR and other pertinent info. @ -Discharge. 58-year-old female chief plaint of right hip pain. complete right hip and pelvis x-ray reveals xray reveals no acute process, intact right hip prosthesis and degenerative changes of the left hip joint. Given starter pack of hydrocodone for pain. Patient has follow-up appointment tomorrow with orthopedics. Undiagnosed new problem with uncertain prognosis? @ -No Drug Therapy requiring intensive monitoring for toxicity (Heparin, Nitro, Insulin, Cardizem)? @ -No Were any procedures done? @ -No Diagnosis/symptom? @ -hip pain Acute, or Chronic, or Acute on Chronic? @ -acute Uncomplicated (without systemic symptoms) or Complicated (systemic symptoms)? @ -Uncomplicated Side effects of treatment? @ -No Exacerbation, Progression, or Severe Exacerbation? @ -No Poses a threat to life or bodily function? How? (Chest pain, [place], [place], pneumonia, PE, COPD, DKA, ARF, appy, cholecystitis, CVA, Diverticulitis, Homicidal, Suicidal, threat to staff... and all critical care pts) @ -No Disposition Clinical Impression: Hip pain Narrative: Please return to the Emergency Department if symptoms worsen or any other concerns. Disposition: HOME SELF-CARE Condition: Good Instructions (If sedation given, give patient instructions): Hip Pain (ED) Is patient prescribed a controlled substance at d/c from ED?: No Referrals: Avril Guzman DO [Primary Care Provider] - 1-2 days Time of Disposition: 17:41
[2024-01-31 16:48] VITALS: TEMP 98
[2024-01-31] MEDS: ACET/COD 300 MG/30 MG STARTER PACK 6 TAB BTL PO STA (17:08)
--- NOTE | 2024-01-31 17:24 | XR ---
EXAMINATION TYPE: XR Hip RT and AP Pelvis DATE OF EXAM: 01/31/2024 5:19 PM CLINICAL INDICATION:Female, 58 years old with history of pain, right hip replacement; [facility] COMPARISON: Radiograph 11/21/2023 TECHNIQUE: The right hip was examined in the frontal and lateral projections and a AP pelvis. FINDINGS: No evidence for acute process, joint dislocation or significant soft tissue swelling. Right hip total arthroplasty is intact. There is flattening of the left femoral head. IMPRESSION: 1. No acute process. 2. Intact right hip prosthesis. 3. Degenerative changes of the left hip joint.
[2024-01-31 18:22] VITALS: BP 106/74; PULSE 98; RESP 20
== END 2024-01-31 17:54 | disposition home or self-care (01) ==
LOC: EC 16:37
DX: M25.551 Pain in right hip (principal); J44.9 Chronic obstructive pulmonary disease, unspecified; F17.200 Nicotine dependence, unspecified, uncomplicated; Z88.8 Allergy status to other drugs, medicaments and biological substances; Z90.49 Acquired absence of other specified parts of digestive tract
CPT/HCPCS: 73502; 99283

== ENCOUNTER 2024-04-12 18:55 | Emergency (ER) | payer OTHER ==
--- NOTE | 2024-04-12 19:17 | ED ---
Lower Extremity Injury HPI - General Source: patient, RN notes reviewed Mode of arrival: wheelchair Limitations: no limitations <Yoselyn Montejo - Last Filed: 04/12/24 19:16> <Graeme Colby - Last Filed: 04/15/24 04:34> - General Chief Complaint: Extremity Injury, Lower Stated Complaint: R Hip Pain Time Seen by Provider: 04/12/24 19:10 - History of Present Illness Initial Comments: Murray chavarria is a 58-year-old female presents emergency department chief complaint of right hip pain. Patient states that she underwent a total hip replacement in November from a previous fracture and has been experiencing chronic pain since. 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 Denies any recent falls or trauma to the right hip. (Yoselyn Montejo) 58-year-old female presenting chief complaint of hip pain. Patient is having right-sided hip pain. She has had chronic pain since her hip replacement back in November after fracturing her hip. 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 She denies any recent fall or injury to the hip. No numbness or tingling. (Graeme Colby) - Related Data Home Medications Medication Instructions Recorded Confirmed Acetaminophen-Codeine 300-30mg 1 - 2 tab PO Q4-6H PRN 11/19/23 11/19/23 [Tylenol w/codeine #3] Ondansetron Odt [Zofran Odt] 4 mg PO Q6H PRN 11/19/23 11/19/23 Previous Rx's Medication Instructions Recorded Ketorolac [Toradol] 10 mg PO Q6HR PRN #15 tab 10/21/23 HYDROcodone/APAP 7.5-325MG [[place] 1 - 2 tab PO Q6H PRN #32 tab 11/23/23 7.5-325] Rivaroxaban [Xarelto] 10 mg PO DAILY #30 tab 11/23/23 Sennosides [Senokot] 2 tab PO DAILY PRN #60 tablet 11/23/23 Allergies Allergy/AdvReac Type Severity Reaction Status Date / Time dicyclomine [From Bentyl] AdvReac "Didn't Verified 04/12/24 19:09 work" ibuprofen [From Motrin] AdvReac Stomach Verified 04/12/24 19:09 upset, vomiting Review of Systems ROS Other: All systems not noted in ROS Statement are negative. <Yoselyn Montejo - Last Filed: 04/12/24 19:16> ROS Other: All systems not noted in ROS Statement are negative. <Graeme Colby - Last Filed: 04/15/24 04:34> ROS Statement: Those systems with pertinent positive or pertinent negative responses have been documented in the HPI. Past Medical History Past Medical History: COPD, Eye Disorder Additional Past Medical History / Comment(s): "CHRONIC BACK PAIN", "LEG SWELLING AND LEG CRAMPS AT TIMES", DIFFIUCLTY SWALLOWING PILLS AND CERTAIN FOODS, BILATERAL MACULAR DEGENERATION, "HEADACHES", CONSTIPAION AND SOMETIMES DIARRHEA ALONG WITH ABDOMINAL CRAMPS. History of Any Multi-Drug Resistant Organisms: None Reported Past Surgical History: Section, Cholecystectomy Additional Past Surgical History / Comment(s): d&c, egd Past Anesthesia/Blood Transfusion Reactions: No Reported Reaction Past Psychological History: No Psychological Hx Reported Smoking Status: Current every day smoker Past Alcohol Use History: None Reported Past Drug Use History: None Reported - Past Family History Mother Additional Family Medical History / Comment(s): GALLSTONES, BURSITIS. MOTHER OF LUNG CANCER AT THE AGE OF 73YRS. SHE WAS A SMOKER. Father Family Medical History: Skin Disorder Additional Family Medical History / Comment(s): FATHER HAS GOUT. HE IS 76YRS OLD. <Yoselyn Montejo - Last Filed: 04/12/24 19:16> General Exam Limitations: no limitations <Yoselyn Montejo - Last Filed: 04/12/24 19:16> Limitations: no limitations General appearance: alert, in no apparent distress Head exam: Present: atraumatic, normocephalic Eye exam: Present: normal appearance, EOMI Neck exam: Present: normal inspection. Absent: meningismus Respiratory exam: Absent: respiratory distress Cardiovascular Exam: Present: regular rate Right Hip exam: Present: normal inspection, tenderness. Absent: full ROM Neurological exam: Present: alert, oriented X3 Psychiatric exam: Present: normal affect, normal mood Skin exam: Present: normal color <Graeme Colby - Last Filed: 04/15/24 04:34> - General Exam Comments Initial Comments: Visual Physical Exam Vital signs reviewed General: Well-appearing, nontoxic, no acute distress. Head: Normocephalic, atraumatic Eyes: PERRLA, EOMI ENT: Airway patent Chest: Nonlabored breathing Skin: No visual rash, normal skin tone Neuro: Alert and oriented 3 Musculoskeletal: No gross abnormalities (Yoselyn Montejo) Course Vital Signs 04/12/24 04/12/24 19:05 20:35 Temperature 98.2 F Pulse Rate 90 84 Respiratory 18 16 Rate Blood Pressure 130/74 126/90 O2 Sat by Pulse 100 99 Oximetry Medical Decision Making <Yoselyn Montejo - Last Filed: 04/12/24 19:16> <Graeme Colby - Last Filed: 04/15/24 04:34> - Medical Decision Making I completed the quick note portion of this chart signed Yoselyn Montejo PA-C (Yoselyn Montejo) Was pt. sent in by a medical professional or institution ([facility], SPOOLING SUPERVISOR, urgent care, hospital, or penitentiary...) When possible be specific @ -No Did you speak to anyone other than the patient for history (EMS, parent, family, police, friend...)? What history was obtained from this source @ -No Did you review nursing and triage notes (agree or disagree)? Why? @ -I reviewed and agree with nursing and triage notes Were old charts reviewed (outside hosp., previous admission, EMS record, old EKG, old radiological studies, urgent care reports/EKG's, penitentiary records)? Report findings @ -No old charts were reviewed Differential Diagnosis (chest pain, altered mental status, abdominal pain women, abdominal pain men, vaginal bleeding, weakness, fever, dyspnea, syncope, headache, dizziness, GI bleed, back pain, seizure, CVA, palpatations, mental health, musculoskeletal)? @ -Differential Musculoskeletal Muscular strain, contusion, ligament sprain, fracture, arthritis, septic arthritis, bursitis, cellulitis, muscle spasm, nerve compression, DVT, arterial occlusion, herpes zoster, electrolyte abnormality, tumor.... This is not meant to be in all inclusive list EKG interpreted by me (3pts min.). @ -As above X-rays interpreted by me (1pt min.). @ -None done CT interpreted by me (1pt min.). @ -None done U/S interpreted by me (1pt. min.). @ -None done What testing was considered but not performed or refused? (CT, X-rays, U/S, labs)? Why? @ -None What meds were considered but not given or refused? Why? @ -None Did you discuss the management of the patient with other professionals (professionals i.e. Dr., PA, SPOOLING SUPERVISOR, lab, RT, psych nurse, public health social worker, photographic process screen maker, teacher, patient safety officer, child support case officer)? Give summary @ -No Was smoking cessation discussed for >3mins.? @ -No Was critical care preformed (if so, how long)? @ -No Were there social determinants of health that impacted care today? How? (Homelessness, low income, unemployed, alcoholism, drug addiction, transportation, low edu. Level, literacy, decrease access to med. care, retirement, rehab)? @ -No Was there de-escalation of care discussed even if they declined (Discuss DNR or withdrawal of care, Hospice)? DNR status @ -No What co-morbidities impacted this encounter? (DM, HTN, Smoking, COPD, CAD, Cancer, CVA, ARF, Chemo, Hep., AIDS, mental health diagnosis, sleep apnea, morbid obesity)? @ -None Was patient admitted / discharged? Hospital course, mention meds given and route, prescriptions, significant lab abnormalities, going to OR and other pertinent info. @ -58-year-old female presenting chief complaint of right hip pain. Patient has had chronic hip pain since her hip replacement back in November. No new injury or trauma. She is provided with a Tylenol 3 starter pack and instructed to follow-up with her PCP. She will be getting in with pain management soon she states. Discharged home. Follow-up with PCP. Report back to ER with any new or worsening symptoms. Discussed return parameters and answered all questions. Patient conveyed verbal understanding and agreed to the plan. I discussed this case in detail with my attending Dr. Jo Undiagnosed new problem with uncertain prognosis? @ -No Drug Therapy requiring intensive monitoring for toxicity (Heparin, Nitro, Insulin, Cardizem)? @ -No Were any procedures done? @ -No Diagnosis/symptom? @ -Hip pain Acute, or Chronic, or Acute on Chronic? @ -Acute Uncomplicated (without systemic symptoms) or Complicated (systemic symptoms)? @ -Uncomplicated Side effects of treatment? @ -No Exacerbation, Progression, or Severe Exacerbation? @ -No Poses a threat to life or bodily function? How? (Chest pain, [place], [place], pneumonia, PE, COPD, DKA, ARF, appy, cholecystitis, CVA, Diverticulitis, Homicidal, Suicidal, threat to staff... and all critical care pts) @ -No (Graeme Colby) Disposition <Yoselyn Montejo - Last Filed: 04/12/24 19:16> Is patient prescribed a controlled substance at d/c from ED?: No Time of Disposition: 20:05 <Graeme Colby - Last Filed: 04/15/24 04:34> Clinical Impression: Hip pain Disposition: HOME SELF-CARE Condition: Good Instructions (If sedation given, give patient instructions): Hip Fracture (ED) Additional Instructions: Follow-up with PCP. Report back to ER with any new or worsening symptoms. Referrals: Avril Guzman DO [Primary Care Provider] - 1-2 days
[2024-04-12 19:48] VITALS: TEMP 98.2
[2024-04-12] MEDS: ACET/COD 300 MG/30 MG STARTER PACK 6 TAB BTL PO STA (20:30)
[2024-04-12 21:23] VITALS: BP 126/90; PULSE 84; RESP 16
== END 2024-04-12 20:37 | disposition home or self-care (01) ==
LOC: EC 18:55
DX: M25.551 Pain in right hip (principal); F17.200 Nicotine dependence, unspecified, uncomplicated; Z88.6 Allergy status to analgesic agent; Z88.8 Allergy status to other drugs, medicaments and biological substances
CPT/HCPCS: 99283

== ENCOUNTER 2024-06-07 21:07 | Emergency (ER) | payer OTHER ==
[2024-06-07 21:32] VITALS: TEMP 98.1
[2024-06-07 23:01] LABS: Basophils % (A) 1 %; Eosinophils # (A) 0.1 k/uL (0-0.7); Eosinophils % (A) 2 %; HCT 36.2 % (34.0-46.0); HGB 11.9 gm/dL (11.4-16.0); Lymphocytes # (A) 1.5 k/uL (1.0-4.8); Lymphocytes % (A) 27 %; MCH 31.2 pg (25.0-35.0); MCHC 32.9 g/dL (31.0-37.0); MCV 94.7 fL (80.0-100.0); Mean Platelet Volume 7.5; Monocytes # (A) 0.2 k/uL (0-1.0); Monocytes % (A) 3 %; Neutrophils # (A) 3.7 k/uL (1.3-7.7); Neutrophils % (A) 66 %; Platelet Count 261 k/uL (150-450); RBC 3.82 m/uL (3.80-5.40); RDW 11.8 % (11.5-15.5); WBC 5.6 k/uL (3.8-10.6)
[2024-06-07] MEDS: SODIUM CHLORIDE 0.9% 1,000 ML IV STA (23:08)
[2024-06-07 23:09] LABS: ALT 6 U/L (4-34); AST 17 U/L (14-36); African American GFR (CKD) >90 (>60 ml/min/1.73 sqM); Albumin 3.8 g/dL (3.5-5.0); Alkaline Phosphatase 79 U/L (38-126); Anion Gap 7 mmol/L; Blood Urea Nitrogen 9 mg/dL (7-17); Carbon Dioxide 26 mmol/L (22-30); Chloride 105 mmol/L (98-107); Glucose 93 mg/dL (74-99); Magnesium 1.8 mg/dL (1.6-2.3); Non-African American GFR(CKD) 87 (>60 ml/min/1.73 sqM); Phosphorus 3.7 mg/dL (2.5-4.5); Potassium 3.7 mmol/L (3.5-5.1); Sodium 138 mmol/L (137-145); Total Bilirubin 0.3 mg/dL (0.2-1.3); Total Protein 6.2 g/dL (6.3-8.2)
[2024-06-07 23:19] LABS: Partial Thromboplastin Time 26.3 sec (22.0-30.0)
[2024-06-07] MEDS: HYDROmorphone 1 MG/ML 1 ML SYRINGE IVP STA (23:31)
[2024-06-07] MEDS: KETOROLAC 15 MG/ML 1 ML VIAL IVP STA (23:32)
--- NOTE | 2024-06-07 23:34 | ED ---
Weakness HPI - General Source: patient, RN notes reviewed Mode of arrival: ambulatory Limitations: no limitations - History of Present Illness MD Complaint: generalized weakness <Yesenia Goodwin - Last Filed: 06/08/24 01:40> - General Source: patient, RN notes reviewed, old records reviewed Mode of arrival: ambulatory Limitations: no limitations <Aamir Jo - Last Filed: 06/09/24 22:20> - General Chief complaint: Weakness Stated complaint: Bodyaches Time Seen by Provider: 06/07/24 22:28 - History of Present Illness Initial comments: This is a 58-year-old female who presents to the emergency department for body aches and weakness. States that she has scoliosis and had a hip replacement earlier this year and struggles with chronic pain. Over the last 4 days she has had pain from head to toe and states that the pain is making it so she is unable to eat or sleep. Currently taking hydrocodone without any relief in symptoms. States that she cannot take ibuprofen or it makes her symptoms worse. She also reports chest pain, shortness of breath, and increasing weakness. States that she has no energy and is struggling to get around. Denies any URI symptoms, fevers, chills, or sick contacts. (Yesenia Goodwin) 58 female to ER for evaluation of weakness (Aamir Jo) - Related Data Home Medications Medication Instructions Recorded Confirmed Acetaminophen-Codeine 300-30mg 1 - 2 tab PO Q4-6H PRN 11/19/23 11/19/23 [Tylenol w/codeine #3] Ondansetron Odt [Zofran Odt] 4 mg PO Q6H PRN 11/19/23 11/19/23 Previous Rx's Medication Instructions Recorded Ketorolac [Toradol] 10 mg PO Q6HR PRN #15 tab 10/21/23 HYDROcodone/APAP 7.5-325MG [Felch 1 - 2 tab PO Q6H PRN #32 tab 11/23/23 7.5-325] Rivaroxaban [Xarelto] 10 mg PO DAILY #30 tab 11/23/23 Sennosides [Senokot] 2 tab PO DAILY PRN #60 tablet 11/23/23 Allergies Allergy/AdvReac Type Severity Reaction Status Date / Time dicyclomine [From Bentyl] AdvReac "Didn't Verified 06/07/24 21:32 work" ibuprofen [From Motrin] AdvReac Stomach Verified 06/07/24 21:32 upset, vomiting Review of Systems ROS Other: All systems not noted in ROS Statement are negative. <Yesenia Goodwin - Last Filed: 06/08/24 01:40> ROS Other: All systems not noted in ROS Statement are negative. <Aamir Jo - Last Filed: 06/09/24 22:20> ROS Statement: Those systems with pertinent positive or pertinent negative responses have been documented in the HPI. Past Medical History Past Medical History: COPD, Eye Disorder Additional Past Medical History / Comment(s): "CHRONIC BACK PAIN", "LEG SWELLING AND LEG CRAMPS AT TIMES", DIFFIUCLTY SWALLOWING PILLS AND CERTAIN FOODS, BILATERAL MACULAR DEGENERATION, "HEADACHES", CONSTIPAION AND SOMETIMES DIARRHEA ALONG WITH ABDOMINAL CRAMPS. History of Any Multi-Drug Resistant Organisms: None Reported Past Surgical History: Section, Cholecystectomy Additional Past Surgical History / Comment(s): d&c, egd Past Anesthesia/Blood Transfusion Reactions: No Reported Reaction Past Psychological History: No Psychological Hx Reported Smoking Status: Current every day smoker Past Alcohol Use History: None Reported Past Drug Use History: None Reported - Past Family History Mother Additional Family Medical History / Comment(s): GALLSTONES, BURSITIS. MOTHER OF LUNG CANCER AT THE AGE OF 73YRS. SHE WAS A SMOKER. Father Family Medical History: Skin Disorder Additional Family Medical History / Comment(s): FATHER HAS GOUT. HE IS 76YRS OLD. <Yesenia Goodwin - Last Filed: 06/08/24 01:40> General Exam Limitations: no limitations General appearance: alert, in no apparent distress Head exam: Present: atraumatic, normocephalic, normal inspection Respiratory exam: Present: normal lung sounds bilaterally. Absent: respiratory distress, wheezes, rales, rhonchi, stridor Cardiovascular Exam: Present: regular rate, normal rhythm, normal heart sounds. Absent: systolic murmur, diastolic murmur, rubs, gallop, clicks Neurological exam: Present: alert, oriented X3, CN II-XII intact Psychiatric exam: Present: normal affect, normal mood Skin exam: Present: warm, dry, intact, normal color. Absent: rash <EmiliomarkYesenia - Last Filed: 06/08/24 01:40> General appearance: alert, in no apparent distress Head exam: Present: atraumatic, normocephalic, normal inspection Eye exam: Present: normal appearance, PERRL, EOMI. Absent: scleral icterus, conjunctival injection, periorbital swelling ENT exam: Present: normal exam, mucous membranes moist Neck exam: Present: normal inspection. Absent: tenderness, meningismus, lymphadenopathy Respiratory exam: Present: normal lung sounds bilaterally. Absent: respiratory distress, wheezes, rales, rhonchi, stridor Cardiovascular Exam: Present: regular rate, normal rhythm, normal heart sounds. Absent: systolic murmur, diastolic murmur, rubs, gallop, clicks GI/Abdominal exam: Present: soft, normal bowel sounds. Absent: distended, tenderness, guarding, rebound, rigid Extremities exam: Present: normal inspection, full ROM, normal capillary refill. Absent: tenderness, pedal edema, joint swelling, calf tenderness Back exam: Present: normal inspection Neurological exam: Present: alert, oriented X3, CN II-XII intact Psychiatric exam: Present: normal affect, normal mood Skin exam: Present: warm, dry, intact, normal color. Absent: rash <Aamir Jo - Last Filed: 06/09/24 22:20> Course <Aamir Jo - Last Filed: 06/09/24 22:20> Vital Signs 06/07/24 06/07/24 06/07/24 21:28 23:13 23:25 Temperature 98.1 F Pulse Rate 120 H 60 Respiratory 20 16 Rate Blood Pressure 108/76 95/68 129/74 O2 Sat by Pulse 98 100 Oximetry 06/08/24 06/08/24 00:58 03:04 Temperature Pulse Rate 62 60 Respiratory 16 18 Rate Blood Pressure 129/74 96/60 O2 Sat by Pulse 99 98 Oximetry - Reevaluation(s) Reevaluation #1: Medical records reviewed (Aamir Jo) Reevaluation #2: Patient symptoms improved here in the ER (Aamir Jo) EKG Findings - EKG Comments: EKG Findings:: EKG is sinus bradycardia 57 SC 150 QRS 102 QTc 393 - EKG Results: EKG: interpreted by ERMD <Aamir Jo - Last Filed: 06/09/24 22:20> Medical Decision Making - Lab Data Result diagrams: 06/07/24 22:44 06/07/24 22:44 - Radiology Data Radiology results: report reviewed, image reviewed <eYsenia Goodwin - Last Filed: 06/08/24 01:40> - Lab Data Result diagrams: 06/07/24 22:44 06/07/24 22:44 - EKG Data -: EKG Interpreted by Me - Radiology Data Radiology results: report reviewed (Chest x-ray and CTA chest negative for acute disease), image reviewed <Aamir Jo - Last Filed: 06/09/24 22:20> - Medical Decision Making This is a 58 year old female who presents to the emergency department for weakness and body aches. Was pt. sent in by a medical professional or institution? @ -No Did you speak to anyone other than the patient for history? @ -No Did you review nursing and triage notes? @ -Yes, and I agree, it is accurate with regards to the patient's symptoms. Were old charts reviewed? @ -No Differential Diagnosis? @ -Differential Weakness: Hypoglycemia, shock, sepsis, hyponatremia, anemia, infection, MO, ETOH, adverse medicine reaction, overdose, stroke, this is not meant to be an all-inclusive list. EKG interpreted by me (3pts min.)? @ -EKG interpreted by me demonstrating the following: Sinus bradycardia. Ventricular rate 57 bpm, SC interval 115 ms, QRS duration 102 ms, QTc 393 ms. X-rays interpreted by me (1pt min.)? @ -Chest x-ray obtained, my interpretation identifies no localized consolidations or infiltrates. CT interpreted by me (1pt min.)? @ -Pending U/S interpreted by me (1pt. min.)? @ -Not obtained What testing was considered but not performed? (CT, X-rays, U/S, labs)? Why? @ -None What meds were considered but not given? Why? @ -None Did you discuss the management of the patient with other professionals? @ -No Did you reconcile home meds? @ -No Was smoking cessation discussed for >3mins.? @ -I discussed smoking cessation for greater than 3 minutes. The risk of smoking were discussed with the patient including but not limited to risks of cancer, stroke, coronary artery disease and COPD. Also discussed with patient were multiple methods of quitting smoking. Lastly we discussed the financial cost of smoking. Was critical care preformed (if so, how long)? @ -No Were there social determinants of health that impacted care today? How? (Homelessness, low income, unemployed, alcoholism, drug addiction, transpor tation, low edu. Level, literacy, decrease access to med. care, correction, rehab)? @ -No Was there de-escalation of care discussed even if they declined? (Discuss DNR or withdrawal of care, Hospice)? @ -No What co-morbidities impacted this encounter? (DM, HTN, Smoking, COPD, CAD, Cancer, CVA, Hep., AIDS, mental health diagnosis, sleep apnea, morbid obesity)? @ -COPD, smoking, osteoarthritis Was patient admitted / discharged? @ -Lab work demonstrates an elevated D-dimer of 1.44 and was otherwise unremarkable. COVID, influenza, and RSV testing negative. Urinalysis negative for signs of infection. Chest x-ray demonstrates prominent interstitial markings. Given patient's episodes of shortness of breath and some chest pain with an elevated D-dimer, CTA of the chest was obtained. Case signed out to ED attending, Dr. Jo, at shift completion pending CTA results and disposition. (Yesenia Goodwin) - Lab Data Lab Results 06/07/24 06/07/24 06/07/24 Range/Units 22:44 22:44 22:44 WBC 5.6 (3.8-10.6) k/uL RBC 3.82 (3.80-5.40) m/uL Hgb 11.9 (11.4-16.0) gm/dL Hct 36.2 (34.0-46.0) % MCV 94.7 (80.0-100.0) fL MCH 31.2 (25.0-35.0) pg MCHC 32.9 (31.0-37.0) g/dL RDW 11.8 (11.5-15.5) % Plt Count 261 (150-450) k/uL MPV 7.5 Neutrophils % 66 % Lymphocytes % 27 % Monocytes % 3 % Eosinophils % 2 % Basophils % 1 % Neutrophils # 3.7 (1.3-7.7) k/uL Lymphocytes # 1.5 (1.0-4.8) k/uL Monocytes # 0.2 (0-1.0) k/uL Eosinophils # 0.1 (0-0.7) k/uL Basophils # 0.0 (0-0.2) k/uL PT 11.0 (10.0-12.5) sec INR 1.0 (<1.2) APTT 26.3 (22.0-30.0) sec D-Dimer (<0.60) mg/L FEU Sodium 138 (137-145) mmol/L Potassium 3.7 (3.5-5.1) mmol/L Chloride 105 (98-107) mmol/L Carbon Dioxide 26 (22-30) mmol/L Anion Gap 7 mmol/L BUN 9 (7-17) mg/dL Creatinine 0.76 (0.52-1.04) mg/dL Est GFR (CKD-EPI)AfAm >90 (>60 ml/min/1.73 sqM) Est GFR (CKD-EPI)NonAf 87 (>60 ml/min/1.73 sqM) Glucose 93 (74-99) mg/dL Plasma Lactic Acid Samuel (0.7-2.0) mmol/L Calcium 9.0 (8.4-10.2) mg/dL Phosphorus 3.7 (2.5-4.5) mg/dL Magnesium 1.8 (1.6-2.3) mg/dL Total Bilirubin 0.3 (0.2-1.3) mg/dL AST 17 (14-36) U/L ALT 6 (4-34) U/L Alkaline Phosphatase 79 (38-126) U/L Creatine Kinase (30-135) U/L Troponin I (0.000-0.034) ng/mL Total Protein 6.2 L (6.3-8.2) g/dL Albumin 3.8 (3.5-5.0) g/dL Urine Color Urine Appearance (Clear) Urine pH (5.0-8.0) Ur Specific [place] (1.001-1.035) Urine Protein (Negative) Urine Glucose (UA) (Negative) Urine Ketones (Negative) Urine Blood (Negative) Urine Nitrite (Negative) Urine Bilirubin (Negative) Urine Urobilinogen (<2.0) mg/dL Ur Leukocyte Esterase (Negative) Urine RBC (0-5) /hpf Urine WBC (0-5) /hpf Ur Squamous Epith Cells (0-4) /hpf Amorphous Sediment (None) /hpf Hyaline Casts (0-2) /lpf Urine Mucus (None) /hpf Influenza Type A (PCR) (Not Detectd) Influenza Type B (PCR) (Not Detectd) RSV (PCR) (Not Detectd) SARS-CoV-2 (PCR) (Not Detectd) 06/07/24 06/07/24 06/07/24 Range/Units 22:44 22:44 22:44 WBC (3.8-10.6) k/uL RBC (3.80-5.40) m/uL Hgb (11.4-16.0) gm/dL Hct (34.0-46.0) % MCV (80.0-100.0) fL MCH (25.0-35.0) pg MCHC (31.0-37.0) g/dL RDW (11.5-15.5) % Plt Count (150-450) k/uL MPV Neutrophils % % Lymphocytes % % Monocytes % % Eosinophils % % Basophils % % Neutrophils # (1.3-7.7) k/uL Lymphocytes # (1.0-4.8) k/uL Monocytes # (0-1.0) k/uL Eosinophils # (0-0.7) k/uL Basophils # (0-0.2) k/uL PT (10.0-12.5) sec INR (<1.2) APTT (22.0-30.0) sec D-Dimer (<0.60) mg/L FEU Sodium (137-145) mmol/L Potassium (3.5-5.1) mmol/L Chloride (98-107) mmol/L Carbon Dioxide (22-30) mmol/L Anion Gap mmol/L BUN (7-17) mg/dL Creatinine (0.52-1.04) mg/dL Est GFR (CKD-EPI)AfAm (>60 ml/min/1.73 sqM) Est GFR (CKD-EPI)NonAf (>60 ml/min/1.73 sqM) Glucose (74-99) mg/dL Plasma Lactic Acid Samuel 0.8 (0.7-2.0) mmol/L Calcium (8.4-10.2) mg/dL Phosphorus (2.5-4.5) mg/dL Magnesium (1.6-2.3) mg/dL Total Bilirubin (0.2-1.3) mg/dL AST (14-36) U/L ALT (4-34) U/L Alkaline Phosphatase (38-126) U/L Creatine Kinase (30-135) U/L Troponin I <0.012 (0.000-0.034) ng/mL Total Protein (6.3-8.2) g/dL Albumin (3.5-5.0) g/dL Urine Color Urine Appearance (Clear) Urine pH (5.0-8.0) Ur Specific [place] (1.001-1.035) Urine Protein (Negative) Urine Glucose (UA) (Negative) Urine Ketones (Negative) Urine Blood (Negative) Urine Nitrite (Negative) Urine Bilirubin (Negative) Urine Urobilinogen (<2.0) mg/dL Ur Leukocyte Esterase (Negative) Urine RBC (0-5) /hpf Urine WBC (0-5) /hpf Ur Squamous Epith Cells (0-4) /hpf Amorphous Sediment (None) /hpf Hyaline Casts (0-2) /lpf Urine Mucus (None) /hpf Influenza Type A (PCR) Not Detected (Not Detectd) Influenza Type B (PCR) Not Detected (Not Detectd) RSV (PCR) Not Detected (Not Detectd) SARS-CoV-2 (PCR) Not Detected (Not Detectd) 06/07/24 06/07/24 06/07/24 Range/Units 22:44 22:44 23:27 WBC (3.8-10.6) k/uL RBC (3.80-5.40) m/uL Hgb (11.4-16.0) gm/dL Hct (34.0-46.0) % MCV (80.0-100.0) fL MCH (25.0-35.0) pg MCHC (31.0-37.0) g/dL RDW (11.5-15.5) % Plt Count (150-450) k/uL MPV Neutrophils % % Lymphocytes % % Monocytes % % Eosinophils % % Basophils % % Neutrophils # (1.3-7.7) k/uL Lymphocytes # (1.0-4.8) k/uL Monocytes # (0-1.0) k/uL Eosinophils # (0-0.7) k/uL Basophils # (0-0.2) k/uL PT (10.0-12.5) sec INR (<1.2) APTT (22.0-30.0) sec D-Dimer 1.44 H (<0.60) mg/L FEU Sodium (137-145) mmol/L Potassium (3.5-5.1) mmol/L Chloride (98-107) mmol/L Carbon Dioxide (22-30) mmol/L Anion Gap mmol/L BUN (7-17) mg/dL Creatinine (0.52-1.04) mg/dL Est GFR (CKD-EPI)AfAm (>60 ml/min/1.73 sqM) Est GFR (CKD-EPI)NonAf (>60 ml/min/1.73 sqM) Glucose (74-99) mg/dL Plasma Lactic Acid Samuel (0.7-2.0) mmol/L Calcium (8.4-10.2) mg/dL Phosphorus (2.5-4.5) mg/dL Magnesium (1.6-2.3) mg/dL Total Bilirubin (0.2-1.3) mg/dL AST (14-36) U/L ALT (4-34) U/L Alkaline Phosphatase (38-126) U/L Creatine Kinase 65 (30-135) U/L Troponin I (0.000-0.034) ng/mL Total Protein (6.3-8.2) g/dL Albumin (3.5-5.0) g/dL Urine Color Colorless Urine Appearance Clear (Clear) Urine pH 6.0 (5.0-8.0) Ur Specific [place] 1.007 (1.001-1.035) Urine Protein Negative (Negative) Urine Glucose (UA) Negative (Negative) Urine Ketones Negative (Negative) Urine Blood Small H (Negative) Urine Nitrite Negative (Negative) Urine Bilirubin Negative (Negative) Urine Urobilinogen <2.0 (<2.0) mg/dL Ur Leukocyte Esterase Negative (Negative) Urine RBC 5 (0-5) /hpf Urine WBC 4 (0-5) /hpf Ur Squamous Epith Cells 3 (0-4) /hpf Amorphous Sediment Rare H (None) /hpf Hyaline Casts 1 (0-2) /lpf Urine Mucus Rare H (None) /hpf Influenza Type A (PCR) (Not Detectd) Influenza Type B (PCR) (Not Detectd) RSV (PCR) (Not Detectd) SARS-CoV-2 (PCR) (Not Detectd) Disposition <Yesenia Goodwin - Last Filed: 06/08/24 01:40> Is patient prescribed a controlled substance at d/c from ED?: No <Aamir Jo - Last Filed: 06/09/24 22:20> Clinical Impression: Weakness, Dehydration Disposition: HOME SELF-CARE Condition: Good Instructions (If sedation given, give patient instructions): Weakness (ED) Referrals: Avril Guzman DO [Primary Care Provider] - 1-2 days
[2024-06-07 23:53] LABS: Amorphous Sediment,Urine Rare /hpf; Appearance,Urine Clear (Clear); Bilirubin,Urine Negative (Negative); Blood,Urine Small (Negative); Color,Urine Colorless; Glucose,Urine (UA) Negative (Negative); Hyaline Casts,Urine 1 /lpf (0-2); Ketones,Urine Negative (Negative); Leukocyte Esterase,Urine Negative (Negative); Mucus,Urine Rare /hpf; Nitrite,Urine Negative (Negative); Protein,Urine Negative (Negative); RBC,Urine 5 /hpf (0-5); Specific Gravity,Urine 1.007 (1.001-1.035); Squamous Epithelial Cell,Urine 3 /hpf (0-4); Urobilinogen,Urine <2.0 mg/dL (<2.0); WBC,Urine 4 /hpf (0-5)
--- NOTE | 2024-06-08 01:38 | XR ---
EXAM: XR Chest, 2 Views CLINICAL HISTORY: ITS.REASON XR Reason: Weakness TECHNIQUE: Frontal and lateral views of the chest. COMPARISON: 06/07/2024. FINDINGS: Lungs: No consolidation or mass. Prominent interstitial markings. Pleural space: No effusion. Heart: No cardiomegaly. Bones/joints: No acute findings. IMPRESSION: Prominent interstitial markings.
--- NOTE | 2024-06-08 02:05 | CT ---
EXAM: CT Angiography Chest With Intravenous Contrast CLINICAL HISTORY: ITS.REASON CT Reason: HERBER, elevated d-dimer TECHNIQUE: Axial computed tomographic angiography images of the chest with intravenous contrast. CTDI is 9.7 mGy and DLP is 139.4 mGy-cm. This CT exam was performed using one or more of the following dose reduction techniques: automated exposure control, adjustment of the mA and/or kV according to patient size, and/or use of iterative reconstruction technique. MIP reconstructed images were created and reviewed. COMPARISON: CTA chest: 12/17/2017. FINDINGS: Diagnostic sensitivity is reduced by the motion artifact. Pulmonary arteries: Unremarkable. No pulmonary embolism. Aorta: No acute findings. No thoracic aortic aneurysm. Lungs: Combined predominantly upper lobes emphysema and pulmonary fibrosis with mild traction bronchiectasis/bronchiolectasis, mildly worsened since prior comparison. Bibasilar subpleural/parenchymal mild/moderate interstitial infiltrates, LT>RT. No mass. No consolidation. Pleural space: Unremarkable. No significant effusion. No pneumothorax. Heart: Unremarkable. No cardiomegaly. No significant pericardial effusion. No evidence of RV dysfunction. Bones/joints: Osteopenia. No acute fracture. No dislocation. Increased thoracic kyphosis. Soft tissues: Unremarkable. Diffusely decreased body wall fat. Lymph nodes: . No enlarged lymph nodes. IMPRESSION: No evidence of pulmonary embolism or aortic aneurysm. Combined pulmonary fibrosis and moderately severe emphysema. Basilar subpleural/parenchymal mild/moderate interstitial infiltrates LT>RT. .
[2024-06-08 03:06] VITALS: BP 96/60; PULSE 60; RESP 18
[2024-06-08] MEDS ORDERED: HYDROmorphone 0.5 MG/0.5 ML SYRINGE IVP STA (03:27)
[2024-06-08] MEDS ORDERED: traMADol 50 MG STARTER PACK 3 TAB BTL PO STA (03:27)
[2024-06-08] MEDS ORDERED: traMADol 50 MG TAB PO STA (03:27)
== END 2024-06-08 03:29 | disposition home or self-care (01) ==
LOC: EC 21:07
DX: R53.1 Weakness (principal); E86.0 Dehydration; J43.9 Emphysema, unspecified; M19.90 Unspecified osteoarthritis, unspecified site; R00.1 Bradycardia, unspecified; F17.200 Nicotine dependence, unspecified, uncomplicated; Z88.6 Allergy status to analgesic agent
CPT/HCPCS: 36415; 93005; 85379; 80053; 82550; 83605; 83735; 84100; 84484; 85025; 85610; 85730; 81001; 87636; 71046; 71275; 99285; 96374; 96375; 96361; J1170; J1885; Q9967

== ENCOUNTER 2024-09-01 10:09 | Emergency (ER) | payer OTHER ==
[2024-09-01 10:31] VITALS: TEMP 98.3
[2024-09-01] MEDS: KETOROLAC 15 MG/ML 1 ML VIAL IVP STA ×2 (13:05→14:38)
[2024-09-01] MEDS: ONDANSETRON 4 MG/2 ML VIAL IVP STA (13:06)
[2024-09-01] MEDS: SODIUM CHLORIDE 0.9% 500 ML 500 ML IV STA (13:09)
[2024-09-01 13:23] LABS: Basophils % (A) 1 %; Eosinophils # (A) 0.1 k/uL (0-0.7); Eosinophils % (A) 2 %; HCT 37.6 % (34.0-46.0); HGB 12.2 gm/dL (11.4-16.0); Lymphocytes # (A) 1.5 k/uL (1.0-4.8); Lymphocytes % (A) 25 %; MCH 30.7 pg (25.0-35.0); MCHC 32.6 g/dL (31.0-37.0); MCV 94.4 fL (80.0-100.0); Mean Platelet Volume 7.6; Monocytes # (A) 0.2 k/uL (0-1.0); Monocytes % (A) 3 %; Neutrophils # (A) 3.8 k/uL (1.3-7.7); Neutrophils % (A) 67 %; Platelet Count 249 k/uL (150-450); RBC 3.98 m/uL (3.80-5.40); RDW 11.7 % (11.5-15.5); WBC 5.8 k/uL (3.8-10.6)
[2024-09-01 13:35] LABS: ALT <6 U/L (4-34); AST 19 U/L (14-36); African American GFR (CKD) >90 (>60 ml/min/1.73 sqM); Albumin 4.1 g/dL (3.5-5.0); Alkaline Phosphatase 90 U/L (38-126); Anion Gap 5 mmol/L; Blood Urea Nitrogen 8 mg/dL (7-17); Calcium 9.1 mg/dL (8.4-10.2); Carbon Dioxide 27 mmol/L (22-30); Chloride 106 mmol/L (98-107); Glucose 91 mg/dL (74-99); Non-African American GFR(CKD) 81 (>60 ml/min/1.73 sqM); Potassium 4.1 mmol/L (3.5-5.1); Sodium 138 mmol/L (137-145); Total Bilirubin 0.5 mg/dL (0.2-1.3); Total Protein 6.8 g/dL (6.3-8.2)
--- NOTE | 2024-09-01 14:33 | ED ---
Extremity Problem HPI - General Chief complaint: Extremity Problem,Nontraumatic Stated complaint: Dizziness Time Seen by Provider: 09/01/24 10:29 Source: patient Mode of arrival: ambulatory Limitations: no limitations - History of Present Illness Initial comments: This is a 58-year-old female presenting with right hip pain ("20 out of 10") x 9 months. Patient endorses total right hip replacement x 9 months ago with ongoing pain. Patient states pain has been causing weakness, dizziness, nausea, anorexia. Patient also endorses "whole body pain" despite use of Tylenol/Motrin. Patient states she has been attempting to schedule an appointment with pain management but has been unable to schedule an appointment yet as of this time. Patient states that she has a walker but does not use it often. Patient states pain is worse with weightbearing and walking. Patient denies fever, chills chest pain, dyspnea, abdominal pain, V/D, dizziness MD Complaint: extremity pain, joint pain Onset/Timin -: month(s) Location: right History of Same: Yes -: Yes arthralgia Radiation: distal Severity scale (1-10): 10 Quality: constant Consistency: constant Worsens with: weight bearing, walking Associated Symptoms: denies other symptoms - Related Data Previous Rx's Medication Instructions Recorded Ketorolac [Toradol] 10 mg PO Q6HR #20 tab 09/01/24 Allergies Allergy/AdvReac Type Severity Reaction Status Date / Time dicyclomine [From Bentyl] AdvReac "Didn't Verified 09/01/24 14:13 work" ibuprofen [From Motrin] AdvReac Stomach Verified 09/01/24 14:13 upset, vomiting Review of Systems ROS Statement: Those systems with pertinent positive or pertinent negative responses have been documented in the HPI. ROS Other: All systems not noted in ROS Statement are negative. Past Medical History Past Medical History: COPD, Eye Disorder Additional Past Medical History / Comment(s): "CHRONIC BACK PAIN", "LEG SWELLING AND LEG CRAMPS AT TIMES", DIFFIUCLTY SWALLOWING PILLS AND CERTAIN FOODS, BILATERAL MACULAR DEGENERATION, "HEADACHES", CONSTIPAION AND SOMETIMES DIARRHEA ALONG WITH ABDOMINAL CRAMPS. History of Any Multi-Drug Resistant Organisms: None Reported Past Surgical History: Section, Cholecystectomy Additional Past Surgical History / Comment(s): d&c, egd Past Anesthesia/Blood Transfusion Reactions: No Reported Reaction Past Psychological History: No Psychological Hx Reported Smoking Status: Current every day smoker Past Alcohol Use History: None Reported Past Drug Use History: None Reported - Past Family History Mother Additional Family Medical History / Comment(s): GALLSTONES, BURSITIS. MOTHER OF LUNG CANCER AT THE AGE OF 73YRS. SHE WAS A SMOKER. Father Family Medical History: Skin Disorder Additional Family Medical History / Comment(s): FATHER HAS GOUT. HE IS 76YRS OLD. General Exam Limitations: no limitations General appearance: alert, in no apparent distress Head exam: Present: atraumatic, normocephalic, normal inspection Eye exam: Present: normal appearance, PERRL, EOMI. Absent: scleral icterus, conjunctival injection, periorbital swelling ENT exam: Present: normal exam, mucous membranes moist Neck exam: Present: normal inspection. Absent: tenderness, meningismus, lymphadenopathy Respiratory exam: Present: normal lung sounds bilaterally. Absent: respiratory distress, wheezes, rales, rhonchi, stridor Cardiovascular Exam: Present: regular rate, normal rhythm, normal heart sounds. Absent: systolic murmur, diastolic murmur, rubs, gallop, clicks GI/Abdominal exam: Present: soft, normal bowel sounds. Absent: distended, tenderness, guarding, rebound, rigid Extremities exam: Present: normal inspection, full ROM, normal capillary refill. Absent: tenderness, pedal edema, joint swelling, calf tenderness Back exam: Present: normal inspection Neurological exam: Present: alert, oriented X3, CN II-XII intact Psychiatric exam: Present: normal affect, normal mood Skin exam: Present: warm, dry, intact, normal color. Absent: rash Course Vital Signs 09/01/24 10:26 Temperature 98.3 F Pulse Rate 92 Respiratory 17 Rate Blood Pressure 109/77 O2 Sat by Pulse 98 Oximetry Medical Decision Making - Medical Decision Making Was pt. sent in by a medical professional or institution (, PA, DIGITAL PHOTOGRAPHIC PRINTER, urgent care, hospital, or alf...) When possible be specific @ -[No] Did you speak to anyone other than the patient for history (EMS, parent, family, police, friend...)? What history was obtained from this source @ -[No] Did you review nursing and triage notes (agree or disagree)? Why? @ -[I reviewed and agree with nursing and triage notes] Were old charts reviewed (outside hosp., previous admission, EMS record, old EKG, old radiological studies, urgent care reports/EKG's, alf records)? Report findings @ -[No old charts were reviewed] Differential Diagnosis (chest pain, altered mental status, abdominal pain women, abdominal pain men, vaginal bleeding, weakness, fever, dyspnea, syncope, headache, dizziness, GI bleed, back pain, seizure, CVA, palpatations, mental health, musculoskeletal)? @ -Right hip pain, right hip dislocation, avascular necrosis, osteoarthritis, sciatica, radiculopathy, scoliosis, inguinal hernia EKG interpreted by me (3pts min.). @ -Not done X-rays interpreted by me (1pt min.). @ -Right hip x-ray shows indication of total hip replacement without obvious dislocation or fracture of this or right femur. CT interpreted by me (1pt min.). @ -[None done] U/S interpreted by me (1pt. min.). @ -[None done] What testing was considered but not performed or refused? (CT, X-rays, U/S, labs)? Why? @ -[None] What meds were considered but not given or refused? Why? @ -[None] Did you discuss the management of the patient with other professionals (professionals i.e. , PA, DIGITAL PHOTOGRAPHIC PRINTER, lab, RT, psych nurse, social media marketing manager, polisher eyeglass frames, teacher, accounting officer, case consultant)? Give summary @ -[No] Was smoking cessation discussed for >3mins.? @ -[No] Was critical care preformed (if so, how long)? @ -[No] Were there social determinants of health that impacted care today? How? (Homelessness, low income, unemployed, alcoholism, drug addiction, transportation, low edu. Level, literacy, decrease access to med. care, intermediate, rehab)? @ -[No] Was there de-escalation of care discussed even if they declined (Discuss DNR or withdrawal of care, Hospice)? DNR status @ -[No] What co-morbidities impacted this encounter? (DM, HTN, Smoking, COPD, CAD, Cancer, CVA, ARF, Chemo, Hep., AIDS, mental health diagnosis, sleep apnea, morbid obesity)? @ -[None] Was patient admitted / discharged? Hospital course, mention meds given and route, prescriptions, significant lab abnormalities, going to OR and other pertinent info. @ -Discharge. Right hip x-ray performed. All testing fairly unremarkable. Patient given Toradol IV and Zofran. Patient sent home with TauroLock and Zofran p.o. for ongoing pain and nausea. Advised follow-up with pain management for long-term management of pain. Undiagnosed new problem with uncertain prognosis? @ -[No] Drug Therapy requiring intensive monitoring for toxicity (Heparin, Nitro, Insulin, Cardizem)? @ -[No] Were any procedures done? @ -[No] Diagnosis/symptom? @ -Right hip pain Acute, or Chronic, or Acute on Chronic? @ -Acute on chronic Uncomplicated (without systemic symptoms) or Complicated (systemic symptoms)? @ -Uncomplicated Side effects of treatment? @ -[No] Exacerbation, Progression, or Severe Exacerbation? @ -[No] Poses a threat to life or bodily function? How? (Chest pain, [place], [place], pneumonia, PE, COPD, DKA, ARF, appy, cholecystitis, CVA, Diverticulitis, Homicidal, Suicidal, threat to staff... and all critical care pts) @ -[No] - Lab Data Result diagrams: 09/01/24 13:15 09/01/24 13:15 Lab Results 09/01/24 09/01/24 09/01/24 Range/Units 13:15 13:15 13:15 WBC 5.8 (3.8-10.6) k/uL RBC 3.98 (3.80-5.40) m/uL Hgb 12.2 (11.4-16.0) gm/dL Hct 37.6 (34.0-46.0) % MCV 94.4 (80.0-100.0) fL MCH 30.7 (25.0-35.0) pg MCHC 32.6 (31.0-37.0) g/dL RDW 11.7 (11.5-15.5) % Plt Count 249 (150-450) k/uL MPV 7.6 Neutrophils % 67 % Lymphocytes % 25 % Monocytes % 3 % Eosinophils % 2 % Basophils % 1 % Neutrophils # 3.8 (1.3-7.7) k/uL Lymphocytes # 1.5 (1.0-4.8) k/uL Monocytes # 0.2 (0-1.0) k/uL Eosinophils # 0.1 (0-0.7) k/uL Basophils # 0.0 (0-0.2) k/uL Sodium 138 (137-145) mmol/L Potassium 4.1 (3.5-5.1) mmol/L Chloride 106 (98-107) mmol/L Carbon Dioxide 27 (22-30) mmol/L Anion Gap 5 mmol/L BUN 8 (7-17) mg/dL Creatinine 0.80 (0.52-1.04) mg/dL Est GFR (CKD-EPI)AfAm >90 (>60 ml/min/1.73 sqM) Est GFR (CKD-EPI)NonAf 81 (>60 ml/min/1.73 sqM) Glucose 91 (74-99) mg/dL Calcium 9.1 (8.4-10.2) mg/dL Total Bilirubin 0.5 (0.2-1.3) mg/dL AST 19 (14-36) U/L ALT <6 (4-34) U/L Alkaline Phosphatase 90 (38-126) U/L Total Protein 6.8 (6.3-8.2) g/dL Albumin 4.1 (3.5-5.0) g/dL Influenza Type A (PCR) Not Detected (Not Detectd) Influenza Type B (PCR) Not Detected (Not Detectd) RSV (PCR) Not Detected (Not Detectd) SARS-CoV-2 (PCR) Not Detected (Not Detectd) Disposition Clinical Impression: Right hip pain Disposition: HOME SELF-CARE Condition: Good Instructions (If sedation given, give patient instructions): Hip Pain (ED) Prescriptions: Ketorolac [Toradol] 10 mg PO Q6HR #20 tab Is patient prescribed a controlled substance at d/c from ED?: No Referrals: Avril Guzman DO [Primary Care Provider] - 1-2 days Time of Disposition: 14:30
[2024-09-01] MEDS: ONDANSETRON 4 MG ODT STARTER PACK 2 TAB BTL PO STA (14:38)
[2024-09-01 14:50] VITALS: BP 120/76; PULSE 56; RESP 20
--- NOTE | 2024-09-01 14:56 | XR ---
EXAMINATION TYPE: XR Hip Complete RT DATE OF EXAM: 09/01/2024 12:30 PM CLINICAL INDICATION: Female, 58 years old with history of Right hip pain, history of THR; [facility] COMPARISON: None. TECHNIQUE: XR Hip Complete RT; hip was examined in the frontal and lateral projections and a AP pelvi s. FINDINGS: Post arthroplasty changes, hardware is intact, alignment is appropriate. No evidence of fra cture. No evidence of any acute osseous pathology or joint dislocation. IMPRESSION: Hip arthroplasty with hardware intact and in appropriate alignment. No acute fracture. [facility], , 09/01/2024 12:45 PM
== END 2024-09-01 14:50 | disposition home or self-care (01) ==
LOC: EC 10:09
CPT/HCPCS: 36415; 73502; 80053; 85025; 87636; 96361; 96374; 96375; 99284

== ENCOUNTER 2024-09-14 12:10 | Emergency (ER) | payer OTHER ==
[2024-09-14 12:16] VITALS: RESP 18
--- NOTE | 2024-09-14 12:30 | ED ---
URI HPI - General Chief Complaint: Upper Respiratory Infection Stated Complaint: cough,headache Time Seen by Provider: 09/14/24 12:19 Source: patient, RN notes reviewed, old records reviewed Mode of arrival: ambulatory Limitations: no limitations - History of Present Illness Initial Comments: This is a 58-year-old female to the ER for evaluation of patient upper respiratory symptoms cough congestion back pain who will be has been cleaning of increased cough sore throat runny nose back pain leg pain generalized bodyaches and pains with sick family member MD Complaint: cough, sore throat -: days(s) Severity: moderate Severity scale (1-10): 4 Quality: stabbing, aching Consistency: constant, intermittent Worsens With: nothing Associated Symptoms: fever, chills, myalgias, sore throat Treatments Prior to Arrival: none - Related Data Previous Rx's Medication Instructions Recorded Ketorolac [Toradol] 10 mg PO Q6HR #20 tab 09/01/24 Allergies Allergy/AdvReac Type Severity Reaction Status Date / Time dicyclomine [From Bentyl] AdvReac "Didn't Verified 09/01/24 14:13 work" ibuprofen [From Motrin] AdvReac Stomach Verified 09/01/24 14:13 upset, vomiting Review of Systems ROS Statement: Those systems with pertinent positive or pertinent negative responses have been documented in the HPI. ROS Other: All systems not noted in ROS Statement are negative. Past Medical History Past Medical History: COPD, Eye Disorder Additional Past Medical History / Comment(s): "CHRONIC BACK PAIN", "LEG SWELLING AND LEG CRAMPS AT TIMES", DIFFIUCLTY SWALLOWING PILLS AND CERTAIN FOODS, BILATERAL MACULAR DEGENERATION, "HEADACHES", CONSTIPAION AND SOMETIMES DIARRHEA ALONG WITH ABDOMINAL CRAMPS. History of Any Multi-Drug Resistant Organisms: None Reported Past Surgical History: Section, Cholecystectomy Additional Past Surgical History / Comment(s): d&c, egd Past Anesthesia/Blood Transfusion Reactions: No Reported Reaction Past Psychological History: No Psychological Hx Reported Smoking Status: Current every day smoker Past Alcohol Use History: None Reported Past Drug Use History: None Reported - Past Family History Mother Additional Family Medical History / Comment(s): GALLSTONES, BURSITIS. MOTHER OF LUNG CANCER AT THE AGE OF 73YRS. SHE WAS A SMOKER. Father Family Medical History: Skin Disorder Additional Family Medical History / Comment(s): FATHER HAS GOUT. HE IS 76YRS OLD. General Exam Limitations: no limitations General appearance: alert, in no apparent distress Head exam: Present: atraumatic, normocephalic, normal inspection Eye exam: Present: normal appearance, PERRL, EOMI. Absent: scleral icterus, conjunctival injection, periorbital swelling ENT exam: Present: normal exam, mucous membranes moist Neck exam: Present: normal inspection. Absent: tenderness, meningismus, lymphadenopathy Respiratory exam: Present: normal lung sounds bilaterally. Absent: respiratory distress, wheezes, rales, rhonchi, stridor Cardiovascular Exam: Present: regular rate, normal rhythm, normal heart sounds. Absent: systolic murmur, diastolic murmur, rubs, gallop, clicks GI/Abdominal exam: Present: soft, normal bowel sounds. Absent: distended, tenderness, guarding, rebound, rigid Extremities exam: Present: normal inspection, full ROM, normal capillary refill. Absent: tenderness, pedal edema, joint swelling, calf tenderness Back exam: Present: normal inspection Neurological exam: Present: alert, oriented X3, CN II-XII intact Psychiatric exam: Present: normal affect, normal mood Skin exam: Present: warm, dry, intact, normal color. Absent: rash Course Vital Signs 09/14/24 12:12 Temperature 98.4 F Pulse Rate 112 H Respiratory 18 Rate Blood Pressure 125/76 O2 Sat by Pulse 100 Oximetry - Reevaluation(s) Reevaluation #1: 09/14/24 13:04 Medical records reviewed Reevaluation #2: 09/14/24 13:40 Patient symptoms improved here in the ER Reevaluation #3: 09/14/24 13:40 Patient informed of results and questions answered Reevaluation #4: Was pt. sent in by a medical professional or institution (, PA, INCOME TAX MANAGER, urgent care, hospital, or prison...) When possible be specific @ -no Did you speak to anyone other than the patient for history (EMS, parent, family, police, friend...)? What history was obtained from this source @ -no Did you review nursing and triage notes (agree or disagree)? Why? @ -agree Are old charts reviewed (outside hosp., previous admission, EMS record, old EKG, old radiological studies, urgent care reports/EKG's, prison records)? Report findings @ -yes Differential Diagnosis (chest pain, altered mental status, abdominal pain women, abdominal pain men, vaginal bleeding, weakness, fever, dyspnea, syncope, headache, dizziness, GI bleed, back pain, seizure, CVA, palpatations, mental health, musculoskeletal)? @ -prior EKG interpreted by me (3pts min.). @ -yes X-rays interpreted by me (1pt min.). @ -yes negative for acute disease CT interpreted by me (1pt min.). @ -no U/S interpreted by me (1pt. min.). @ -no What testing was considered but not performed or refused? (CT, X-rays, U/S, labs)? Why? @ -none What meds were considered but not given or refused? Why? @ -none Did you discuss the management of the patient with other professionals (professionals i.e. , PA, INCOME TAX MANAGER, lab, RT, psych nurse, social work case manager, line department supervisor, teacher, commercial credit officer, social work case manager)? Give summary @ -no Was smoking cessation discussed for >3mins.? @ -no Was critical care preformed (if so, how long)? @ -no Were there social determinants of health that impacted care today? How? (Homelessness, low income, unemployed, alcoholism, drug addiction, transportation, low edu. Level, literacy, decrease access to med. care, half-way, rehab)? @ -none Was there de-escalation of care discussed even if they declined (Discuss DNR or withdrawal of care, Hospice)? DNR status @ -no What co-morbidities impacted this encounter? (DM, HTN, Smoking, COPD, CAD, Cancer, CVA, ARF, Chemo, Hep., AIDS, mental health diagnosis, sleep apnea, morbid obesity)? @ -none Was patient admitted / discharged? Hospital course, mention meds given and route, prescriptions, significant lab abnormalities, going to OR and other pertinent info. @ - Undiagnosed new problem with uncertain prognosis? @ -no Drug Therapy requiring intensive monitoring for toxicity (Heparin, Nitro, Insulin, Cardizem)? @ -no Were any procedures done? @ -no Diagnosis/symptom? @ - Acute, or Chronic, or Acute on Chronic? @ -Acute Uncomplicated (without systemic symptoms) or Complicated (systemic symptoms)? @ -Complicated Side effects of treatment? @ -no Exacerbation, Progression, or Severe Exacerbation? @ -exacerbation Poses a threat to life or bodily function? How? (Chest pain, [place], [place], pneumonia, PE, COPD, DKA, ARF, appy, cholecystitis, CVA, Diverticulitis, Homicidal, Suicidal, threat to staff... and all critical care pts) @ -yes Reevaluation #5: Differential Dyspnea: Coronary syndrome, arrhythmia, tamponade, asthma, COPD, pulmonary embolism, pneumonia, pneumothorax, pulmonary effusion, anaphylaxis, diabetic ketoacidosis, flailed chest, pulmonary contusion, diaphragmatic rupture, anemia, neuromuscular, this is not meant to be an all-inclusive list. Medical Decision Making - Medical Decision Making 58 female to the ER with viral syndrome type symptoms. No acute findings here in the ER feels improved and can be discharged home Disposition Clinical Impression: Acute upper respiratory infection, Viral infection Disposition: HOME SELF-CARE Condition: Good Instructions (If sedation given, give patient instructions): Viral Syndrome (ED) Is patient prescribed a controlled substance at d/c from ED?: No Referrals: Avril Guzman DO [Primary Care Provider] - 1-2 days Time of Disposition: 13:55
[2024-09-14] MEDS: ACETAMINOPHEN TAB 500 MG TAB PO STA (12:59)
[2024-09-14] MEDS: HYDROmorphone 1 MG/ML 1 ML SYRINGE IM STA (13:00)
[2024-09-14] MEDS: ONDANSETRON ODT 4 MG TAB PO STA (13:00)
--- NOTE | 2024-09-14 14:09 | XR ---
EXAMINATION TYPE: XR chest 2V DATE OF EXAM: 09/14/2024 COMPARISON: 06/07/2024 HISTORY: 58-year-old female with cough, weakness, dizziness TECHNIQUE: PA and lateral views FINDINGS: Heart normal size. Aorta and pulmonary vasculature within normal limits. Hyperinflation. Biapical ple ural-parenchymal scarring. Blunting of the lateral costophrenic angles likely additional basilar pleu ral parenchymal scarring, unchanged. Before meals midlung densities relating to overlying soft tissue . No lynette consolidation or pleural effusion seen. Left-sided nipple shadow. IMPRESSION: COPD with biapical and bibasilar pleural parenchymal scarring. No acute process seen. [facility], , 09/14/2024 2:06 PM
[2024-09-14] MEDS: ONDANSETRON 4 MG ODT STARTER PACK 2 TAB BTL PO STA (14:20)
[2024-09-14] MEDS: ACET/COD 300 MG/30 MG STARTER PACK 6 TAB BTL PO STA (14:20)
[2024-09-14] MEDS: DEXAMETHASONE SOD PHOSPHATE 10 MG/ML 1 ML VIAL IM STA (14:21)
[2024-09-14] MEDS: BENZONATATE 100 MG CAP PO STA (14:21)
[2024-09-14 14:29] VITALS: BP 96/66; PULSE 64; TEMP 98.2
== END 2024-09-14 14:42 | disposition home or self-care (01) ==
LOC: EC 12:10
CPT/HCPCS: 71046; 87636; 87651; 96372; 99284

== ENCOUNTER 2024-09-23 18:53 | Emergency (ER) | payer OTHER ==
[2024-09-23 18:58] VITALS: BP 128/83; PULSE 118; RESP 16; TEMP 98.4
--- NOTE | 2024-09-23 19:15 | ED ---
General Adult HPI - General Source: patient, RN notes reviewed Mode of arrival: wheelchair Limitations: no limitations <Karis De Jesus - Last Filed: 09/23/24 19:13> - General Source: RN notes reviewed, old records reviewed Mode of arrival: wheelchair Limitations: no limitations - History of Present Illness -: month(s) Radiation: non-radiation Severity scale (1-10): 7 Quality: aching, sharp Consistency: constant Improves with: none Worsens with: none Associated Symptoms: denies other symptoms Treatments Prior to Arrival: none <Aamir Jo - Last Filed: 09/24/24 17:14> - General Chief complaint: Recheck/Abnormal Lab/Rx Stated complaint: Weakness,Pain Time Seen by Provider: 09/23/24 19:13 - History of Present Illness Initial comments: Quick [id number] female presenting to the ER with chief complaint of generalized pain. Patient states she has been dealing with pain for 10 months since right hip replacement. States since the surgery the arthritis has spread throughout her whole body and is requesting pain control. States she has upcoming pain management appointment but cannot wait till then. (Karis De Jesus) This is a 58-year-old female for medication refill chronic pain pain management and pain is just worse, pain is out of control and she feels generalized body aches and pains especially hip pain (Aamir Jo) - Related Data Previous Rx's Medication Instructions Recorded Ketorolac [Toradol] 10 mg PO Q6HR #20 tab 09/01/24 Allergies Allergy/AdvReac Type Severity Reaction Status Date / Time dicyclomine [From Bentyl] AdvReac "Didn't Verified 09/23/24 18:58 work" ibuprofen [From Motrin] AdvReac Stomach Verified 09/23/24 18:58 upset, vomiting Review of Systems ROS Other: All systems not noted in ROS Statement are negative. <Karis De Jesus - Last Filed: 09/23/24 19:13> ROS Other: All systems not noted in ROS Statement are negative. <Aamir Jo - Last Filed: 09/24/24 17:14> ROS Statement: Those systems with pertinent positive or pertinent negative responses have been documented in the HPI. Past Medical History Past Medical History: COPD, Eye Disorder Additional Past Medical History / Comment(s): "CHRONIC BACK PAIN", "LEG SWELLING AND LEG CRAMPS AT TIMES", DIFFIUCLTY SWALLOWING PILLS AND CERTAIN FOODS, BILATERAL MACULAR DEGENERATION, "HEADACHES", CONSTIPAION AND SOMETIMES DIARRHEA ALONG WITH ABDOMINAL CRAMPS. History of Any Multi-Drug Resistant Organisms: None Reported Past Surgical History: Section, Cholecystectomy Additional Past Surgical History / Comment(s): d&c, egd Past Anesthesia/Blood Transfusion Reactions: No Reported Reaction Past Psychological History: No Psychological Hx Reported Smoking Status: Current every day smoker Past Alcohol Use History: None Reported Past Drug Use History: None Reported - Past Family History Mother Additional Family Medical History / Comment(s): GALLSTONES, BURSITIS. MOTHER OF LUNG CANCER AT THE AGE OF 73YRS. SHE WAS A SMOKER. Father Family Medical History: Skin Disorder Additional Family Medical History / Comment(s): FATHER HAS GOUT. HE IS 76YRS OLD. <Karis De Jesus - Last Filed: 09/23/24 19:13> General Exam Limitations: no limitations <NealKaris - Last Filed: 09/23/24 19:13> General appearance: alert, in no apparent distress Head exam: Present: atraumatic, normocephalic, normal inspection Eye exam: Present: normal appearance, PERRL, EOMI. Absent: scleral icterus, conjunctival injection, periorbital swelling ENT exam: Present: normal exam, mucous membranes moist Neck exam: Present: normal inspection. Absent: tenderness, meningismus, lymphadenopathy Respiratory exam: Present: normal lung sounds bilaterally. Absent: respiratory distress, wheezes, rales, rhonchi, stridor Cardiovascular Exam: Present: regular rate, normal rhythm, normal heart sounds. Absent: systolic murmur, diastolic murmur, rubs, gallop, clicks GI/Abdominal exam: Present: soft, normal bowel sounds. Absent: distended, tenderness, guarding, rebound, rigid Extremities exam: Present: normal inspection, full ROM, normal capillary refill. Absent: tenderness, pedal edema, joint swelling, calf tenderness Back exam: Present: normal inspection Neurological exam: Present: alert, oriented X3, CN II-XII intact Psychiatric exam: Present: normal affect, normal mood Skin exam: Present: warm, dry, intact, normal color. Absent: rash <Aamir Jo Last Filed: 09/24/24 17:14> - General Exam Comments Initial Comments: Visual Physical Exam Vital signs reviewed General: Well-appearing, nontoxic, no acute distress. Head: Normocephalic, atraumatic Eyes: PERRLA, EOMI ENT: Airway patent Chest: Nonlabored breathing Skin: No visual rash, normal skin tone Neuro: Alert and oriented 3 Musculoskeletal: No gross abnormalities (Karis De Jesus) Course <DeysiJggurinder Chang - Last Filed: 09/24/24 17:14> Vital Signs 09/23/24 18:55 Temperature 98.4 F Pulse Rate 118 H Respiratory 16 Rate Blood Pressure 128/83 O2 Sat by Pulse 99 Oximetry - Reevaluation(s) Reevaluation #1: Medical records reviewed (Aamir Jo) Reevaluation #2: Symptoms unchanged (Aamir Jo) Reevaluation #3: Patient informed of results questions answered (Aamir Jo) Reevaluation #4: Was pt. sent in by a medical professional or institution (, PA, PARIMUTUEL CASHIER, urgent care, hospital, or retirement...) When possible be specific @ -no Did you speak to anyone other than the patient for history (EMS, parent, family, police, friend...)? What history was obtained from this source @ -no Did you review nursing and triage notes (agree or disagree)? Why? @ -agree Are old charts reviewed (outside hosp., previous admission, EMS record, old EKG, old radiological studies, urgent care reports/EKG's, retirement records)? Report findings @ -yes Differential Diagnosis (chest pain, altered mental status, abdominal pain women, abdominal pain men, vaginal bleeding, weakness, fever, dyspnea, syncope, headache, dizziness, GI bleed, back pain, seizure, CVA, palpatations, mental health, musculoskeletal)? @ -prior EKG interpreted by me (3pts min.). @ -no X-rays interpreted by me (1pt min.). @ -no CT interpreted by me (1pt min.). @ -no U/S interpreted by me (1pt. min.). @ -no What testing was considered but not performed or refused? (CT, X-rays, U/S, labs)? Why? @ -none What meds were considered but not given or refused? Why? @ -none Did you discuss the management of the patient with other professionals (professionals i.e. , PA, PARIM[employer]EL CASHIER, lab, RT, psych nurse, social and human services assistant, fire protection equipment technician, teacher, police liaison officer, assistant case manager)? Give summary @ -no Was smoking cessation discussed for >3mins.? @ -no Was critical care preformed (if so, how long)? @ -no Were there social determinants of health that impacted care today? How? (Homelessness, low income, unemployed, alcoholism, drug addiction, transportation, low edu. Level, literacy, decrease access to med. care, [facility], rehab)? @ -none Was there de-escalation of care discussed even if they declined (Discuss DNR or withdrawal of care, Hospice)? DNR status @ -no What co-morbidities impacted this encounter? (DM, HTN, Smoking, COPD, CAD, Cancer, CVA, ARF, Chemo, Hep., AIDS, mental health diagnosis, sleep apnea, morbid obesity)? @ -none Was patient admitted / discharged? Hospital course, mention meds given and route, prescriptions, significant lab abnormalities, going to OR and other pertinent info. @ -58 female for chronic pain evaluation pain control patient feels well and can be discharged home Discharge Undiagnosed new problem with uncertain prognosis? @ -no Drug Therapy requiring intensive monitoring for toxicity (Heparin, Nitro, Insulin, Cardizem)? @ -no Were any procedures done? @ -no Diagnosis/symptom? @ -Chronic pain Acute, or Chronic, or Acute on Chronic? @ -Acute Uncomplicated (without systemic symptoms) or Complicated (systemic symptoms)? @ -Complicated Side effects of treatment? @ -no Exacerbation, Progression, or Severe Exacerbation? @ -exacerbation Poses a threat to life or bodily function? How? (Chest pain, USA, DC, pneumonia, PE, COPD, DKA, ARF, appy, cholecystitis, CVA, Diverticulitis, Homicidal, Suicidal, threat to staff... and all critical care pts) @ -no (Aamir Jo) Medical Decision Making <Karis De Jesus - Last Filed: 09/23/24 19:13> <Aamir Jo - Last Filed: 09/24/24 17:14> - Medical Decision Making I completed the quick note portion of this chart signed Karis De Jesus PA-C (Karis De Jesus) 58 female known to this emergency department coming in for chronic pain. Patient given pain control here in the ER and discharge (Aamir Jo) Disposition <Karis De Jesus - Last Filed: 09/23/24 19:13> Is patient prescribed a controlled substance at d/c from ED?: No Time of Disposition: 21:50 <Aamir Jo - Last Filed: 09/24/24 17:14> Clinical Impression: Chronic pain Disposition: HOME SELF-CARE Condition: Fair Instructions (If sedation given, give patient instructions): Chronic Pain (ED) Referrals: Avril Guzman DO [Primary Care Provider] - 1-2 days
[2024-09-23] MEDS: HYDROmorphone 1 MG/ML 1 ML SYRINGE IM STA (22:42)
[2024-09-23] MEDS: ACET/COD 300 MG/30 MG STARTER PACK 6 TAB BTL PO STA (22:42)
== END 2024-09-23 22:44 | disposition home or self-care (01) ==
LOC: EC 18:53
DX: G89.29 Other chronic pain (principal); R53.1 Weakness; F17.200 Nicotine dependence, unspecified, uncomplicated; Z88.6 Allergy status to analgesic agent; Z88.8 Allergy status to other drugs, medicaments and biological substances; Z90.49 Acquired absence of other specified parts of digestive tract
CPT/HCPCS: 99284; 96372; J1171